=== PATIENT | female | born 1945 | race Caucasian/White ===

== ENCOUNTER 2020-01-19 08:59 | Outpatient (REF) | payer MEDICARE, SELFPAY ==
--- NOTE | 2020-01-19 09:00 | XR_ITS ---
EXAMINATION: XR KNEE STANDING, BILATERAL XR KNEE, RIGHT CLINICAL INFORMATION: Pain. COMPARISON: 01/17/2019 TECHNIQUE: Standing AP view of both knees with lateral and sunrise views of the right knee. FINDINGS: The patient is status post bilateral total knee arthroplasties with prosthetic components in place and without change from previous study. No evidence of loosening. No significant right knee effusion is appreciated. XR/XR knee standing BI IMPRESSION: Stable appearance status post bilateral total knee arthroplasty.
--- NOTE | 2020-01-19 09:00 | XR_ITS ---
EXAMINATION: XR KNEE STANDING, BILATERAL XR KNEE, RIGHT CLINICAL INFORMATION: Pain. COMPARISON: 01/17/2019 TECHNIQUE: Standing AP view of both knees with lateral and sunrise views of the right knee. FINDINGS: The patient is status post bilateral total knee arthroplasties with prosthetic components in place and without change from previous study. No evidence of loosening. No significant right knee effusion is appreciated. XR/XR knee RT 2V IMPRESSION: Stable appearance status post bilateral total knee arthroplasty.
== END 2020-01-19 09:00 | disposition home or self-care (01) ==
LOC: HO.HOSX 08:59
PROVIDERS: Visit Provider Orthopaedic Surgery
DX: M25.569 Pain in unspecified knee (principal); R20.0 Anesthesia of skin; Z96.652 Presence of left artificial knee joint; Z96.651 Presence of right artificial knee joint
CPT/HCPCS: 73560; 73565; 99212

== ENCOUNTER 2020-01-26 13:29 | Outpatient (REF) | payer MEDICARE, SELFPAY ==
--- NOTE | 2020-01-26 13:36 | XR_ITS ---
EXAMINATION: XR ANKLE, LEFT XR FOOT, LEFT CLINICAL INFORMATION: Pain after injury. COMPARISON: None TECHNIQUE: Left ankle, 2 views Left foot, 3 views FINDINGS: Left ankle: The talar dome is well-positioned within the intact ankle mortise. Ankle joint space and syndesmotic space are normal. No osteochondral injury at the talar dome. Soft tissues are swollen around the ankle, particularly anterolateral ankle. Left foot: Bones have normal alignment throughout the foot. The joint spaces are maintained in the midfoot and hindfoot. Small enthesophytes of the calcaneus. Incidentally noted is small subcortical cystlike lucency in the medial aspect of the first metatarsal head. There is joint space narrowing and osteophyte formation at several degenerated interphalangeal joints (worst at the third DIP joint). XR/XR foot LT min 3V IMPRESSION: * No acute osseous injury in the left ankle or foot. * Soft tissues are swollen around the ankle. 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
--- NOTE | 2020-01-26 13:36 | XR_ITS ---
EXAMINATION: XR ANKLE, LEFT XR FOOT, LEFT CLINICAL INFORMATION: Pain after injury. COMPARISON: None TECHNIQUE: Left ankle, 2 views Left foot, 3 views FINDINGS: Left ankle: The talar dome is well-positioned within the intact ankle mortise. Ankle joint space and syndesmotic space are normal. No osteochondral injury at the talar dome. Soft tissues are swollen around the ankle, particularly anterolateral ankle. Left foot: Bones have normal alignment throughout the foot. The joint spaces are maintained in the midfoot and hindfoot. Small enthesophytes of the calcaneus. Incidentally noted is small subcortical cystlike lucency in the medial aspect of the first metatarsal head. There is joint space narrowing and osteophyte formation at several degenerated interphalangeal joints (worst at the third DIP joint). XR/XR ankle LT min 3V IMPRESSION: * No acute osseous injury in the left ankle or foot. * Soft tissues are swollen around the ankle. 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
== END 2020-01-26 13:30 | disposition home or self-care (01) ==
LOC: HO.HMGCX 13:29
PROVIDERS: PCP Internal Medicine; Visit Provider Nurse Practitioner Family
DX: S99.919A Unspecified injury of unspecified ankle, initial encounter (principal)
CPT/HCPCS: 73610; 73630

== ENCOUNTER 2020-03-09 10:55 | Outpatient (REF) | payer MEDICARE, SELFPAY | END 2020-03-09 10:56 | disposition home or self-care (01) | LOC: HO.LAB 10:55 | PROVIDERS: Visit Provider Internal Medicine | DX: Z20.822 Contact with and (suspected) exposure to COVID-19 (principal) | CPT/HCPCS: 36415; C9803; U0003 ==

== ENCOUNTER 2020-04-17 10:12 | Outpatient (REF) | payer MEDICARE, SELFPAY ==
[2020-04-17 10:57] LABS: Alanine Aminotransferase 22 U/L (0-31); Alkaline Phosphatase 53 U/L (39-117); Aspartate Amino Transferase 28 U/L (5-31); Bilirubin Direct 0.3 mg/dL (0.0-0.5); Bilirubin Total 0.9 mg/dL (0.0-1.0); Cholesterol 157 mg/dL; HDL Cholesterol 70 mg/dL; LDL Cholesterol Calculated 71 mg/dl; Total Protein 6.9 g/dL (6.5-8.0); Triglycerides 83 mg/dL
[2020-04-17 11:11] LABS: Reflex LDLD? No
== END 2020-04-17 10:13 | disposition home or self-care (01) ==
LOC: HO.LNP 10:12
PROVIDERS: PCP Internal Medicine; Visit Provider Internal Medicine
DX: E78.00 Pure hypercholesterolemia, unspecified (principal)
CPT/HCPCS: 80061; 80076

== ENCOUNTER 2020-05-16 09:38 | Outpatient (REF) | payer MEDICARE, SELFPAY ==
--- NOTE | 2020-05-16 | EMG_ITS ---
HISTORY OF PRESENT ILLNESS: This is a 75-year-old woman with bilateral pain, numbness, and tingling in the hands for several years with the left being worse than the right. PHYSICAL EXAMINATION: On examination, she is alert and oriented with normal intellectual functions. Cranial nerves II through XII are normal. Muscle tone and strength are normal in all 4 extremities. Deep tendon reflexes symmetrical. There is mild weakness of the abductor pollicis brevis muscle bilaterally, left more than right. IMPRESSION: Carpal tunnel syndrome. Nerve conduction EMG study: [id number] carpal tunnel syndrome on the left. Mild carpal tunnel syndrome on the right. Normal EMG of the left C5-T1 innervated muscles. MD PAWEL Laureano/ASHWIN / [id number]
== END 2020-05-16 09:39 | disposition home or self-care (01) ==
LOC: HO.NEURO 09:38
PROVIDERS: PCP Internal Medicine; Visit Provider Internal Medicine
DX: G56.03 Carpal tunnel syndrome, bilateral upper limbs (principal)
CPT/HCPCS: 95885; 95913

== ENCOUNTER → 2020-05-22 12:30 | Outpatient (BNVA) | payer MEDICARE, SELFPAY | PROVIDERS: PCP Internal Medicine; Visit Provider Orthopaedic Surgery | DX: G56.02 Carpal tunnel syndrome, left upper limb (principal); G56.01 Carpal tunnel syndrome, right upper limb | CPT/HCPCS: 99202 ==

== ENCOUNTER 2020-06-28 09:57 | Day surgery (SDC) | payer MEDICARE, SELFPAY ==
[2020-06-22 20:07] VITALS: BMI 24.3
[2020-06-28 10:12] VITALS: BP 144/76; PULSE 81; RESP 16; TEMP 36.7; O2SAT 97
--- NOTE | 2020-06-28 14:20 | MHC.SHP ---
Pre-Procedural Eval Section B Chief Complaint: carpal Allergies: Allergies Allergy/AdvReac Type Severity Reaction Status Date / Time No Known Allergies Allergy Verified 06/22/20 20:07 [No Known Allergies*] Plan I have reviewed the history and physical and performed a pertinent physical examination on my patient. No changes have occurred unless specified.
--- NOTE | 2020-06-28 14:20 | W.PM.OPN ---
Operative Note Operative Note Date of Service: 06/28/20 Narrative: Preop diagnosis: 1. Left Carpal tunnel syndrome Postop diagnosis: same Procedure: 1. Left Carpal tunnel release Surgeon: Jessica Martinez MD Anesthesia: local block using 1% lidocaine with epinephrine Findings: Thickened transverse carpal ligament. EBL: Less than 5 mL Specimens: None Complications: None Disposition: Brought to recovery room in stable condition Plan: Follow-up for 7-10 days for wound check and suture removal Indications: The patient is 75 years old, with left carpal tunnel syndrome that has been unresponsive to nonoperative management. The risks and benefits of operative treatment including but not limited to risk of damage to blood vessels, nerves, tendons, infection, persistent pain, persistent symptoms, or possible need for additional surgery were discussed with the patient and the patient wishes to proceed with surgery. Procedure: Once consent was obtained a local block was performed using a combination of 1% lidocaine with epinephrine. The patient was then brought back to the operating suite and placed on the operative table in supine position. A tourniquet was applied to the proximal aspect of the left upper extremity and the limb was prepped and draped in a standard surgical fashion. Once assured that we had a good block, a 1.5 cm longitudinal incision was made centered over the carpal tunnel. The incision was made through the skin to the subcutaneous tissues using a #15 blade. Dissection was made down to the level of the transverse carpal ligament with care being taken to protect the palmar cutaneous nerve. Once the transverse carpal ligament was clearly visualized, a longitudinal incision was made in the transverse carpal ligament 1st using a #15 blade, then using tenotomy scissors under direct visualization. Care was taken to look for and protect the motor branch of the median nerve when seen in this area. Once satisfied with our carpal tunnel release the wound was copiously irrigated with normal saline and hemostasis was obtained with a brief period of local pressure. The skin edges were reapproximated with some 5.0 nylon suture material and a sterile dressing was applied. The patient appears to have tolerated the procedure well and with no complications. All digits were well vascularized at the conclusion of the case.
[2020-06-28 14:48] VITALS: BP 135/60; PULSE 75; RESP 18; TEMP 37.2; O2SAT 94
== END 2020-06-28 15:08 ==
LOC: HO.SSS 09:58
PROVIDERS: PCP Internal Medicine; Visit Provider Orthopaedic Surgery
PROC: (CPT 64721; principal; 2020-06-28 11:20)
DX: G56.02 Carpal tunnel syndrome, left upper limb (principal); I10 Essential (primary) hypertension; Z79.899 Other long term (current) drug therapy
CPT/HCPCS: 64721

== ENCOUNTER → 2020-07-09 08:18 | Outpatient (BNVA) | payer MEDICARE, SELFPAY | PROVIDERS: Visit Provider Orthopaedic Surgery | DX: G56.02 Carpal tunnel syndrome, left upper limb (principal); G56.01 Carpal tunnel syndrome, right upper limb | CPT/HCPCS: 99212 ==

== ENCOUNTER 2020-11-09 10:29 | Outpatient (REF) | payer MEDICARE, SELFPAY ==
--- NOTE | ~2020-11-09 | MM_ITS ---
EXAMINATION: MM SCREENING DIGITAL BREAST TOMOSYNTHESIS, BILATERAL CLINICAL INFORMATION: Screening. Asymptomatic. The lifetime risk of breast cancer based on the Tyrer-Cuzick Model is 3%. COMPARISON: Mammography: 11/04/2019, 10/29/2018, 10/09/2017 TECHNIQUE: Digital breast tomosynthesis is performed in both the craniocaudal and mediolateral oblique views along with computer-aided detection (CAD). Synthesized 2D images are generated from the tomosynthesis. FINDINGS: The breasts are heterogeneously dense, which may obscure small masses (ACR BI-RADS breast composition Category c). There are no significant masses, abnormal calcifications, or other abnormalities. Parenchymal pattern is similar to prior studies. Skin contours are smooth. No significant changes. MM/MM tomosynthesis screening BI IMPRESSION: No mammographic evidence of malignancy. ASSESSMENT: BI-RADS 1: Negative RECOMMENDATION: Routine annual mammography screening. This patient's information was entered into a reminder system with a target due date for their next mammogram.
== END 2020-11-09 10:30 | disposition home or self-care (01) ==
LOC: HO.MAMMO 10:29
PROVIDERS: PCP Internal Medicine; Visit Provider Internal Medicine
DX: Z12.31 Encounter for screening mammogram for malignant neoplasm of breast (principal)
CPT/HCPCS: 77063; 77067

== ENCOUNTER 2020-12-28 10:35 | Outpatient (REF) | payer MEDICARE, SELFPAY ==
[2020-12-28 10:38] LABS: MANUAL DIFF FLAG NO
[2020-12-28 10:47] LABS: Basophils Percent Auto 0.3 % (0-2); Eosinophils Absolute Auto 0.5 X10*3/uL (0.0-0.4); Eosinophils Percent Auto 7.5 % (0-4); Hematocrit 36.9 % (37.0-47.0); Hemoglobin 12.1 g/dl (12.0-16.0); Imm Gran Abs Auto 0.01 X10*3/uL (0.00-0.03); Imm Gran Pct Auto 0.2 % (0.0-0.4); Lymphocytes Percent Auto 32.6 % (20-40); Mean Corpuscular HGB Conc 32.8 g/dl (31.0-35.0); Mean Corpuscular Hemoglobin 31.3 pg (27.0-33.0); Mean Corpuscular Volume 95.3 fL (80.0-98.0); Monocytes Absolute Auto 0.7 X10*3/uL (0.1-1.2); Monocytes Percent Auto 11.7 % (2-11); Neutrophils Absolute Auto 2.9 x10*3/uL (2.0-8.3); Neutrophils Percent Auto 47.7 % (45-73); Platelet Count 332 X10*3/uL (160-400); Red Blood Count 3.87 X10*6/uL (4.20-5.50); Red Cell Distribution Width 13.9 % (11.0-16.0); White Blood Count 6.1 X10*3/uL (4.8-10.8)
[2020-12-28 11:02] LABS: Alanine Aminotransferase 26 U/L (0-31); Albumin Level 3.9 g/dL (3.5-5.0); Alkaline Phosphatase 50 U/L (39-117); Anion Gap 9 (12-20); Aspartate Amino Transferase 29 U/L (5-31); Bilirubin Total 0.3 mg/dL (0.0-1.0); Blood Urea Nitrogen 20 mg/dL (9-16); Calcium 8.7 mg/dL (8.4-10.2); Carbon Dioxide 28 mmol/L (22-29); Chloride 106 mmol/L (96-108); Cholesterol 157 mg/dL; Estimated Glomerular Filt Rate > 60; Glucose Fasting 97 mg/dL (60-99); HDL Cholesterol 64 mg/dL; LDL Cholesterol Calculated 83 mg/dl; Potassium 4.2 mmol/L (3.3-5.1); Sodium 139 mmol/L (135-145); Total Protein 6.7 g/dL (6.5-8.0); Triglycerides 51 mg/dL
[2020-12-28 12:31] LABS: Reflex LDLD? No
== END 2020-12-28 10:36 | disposition home or self-care (01) ==
LOC: HO.LNP 10:35
PROVIDERS: Visit Provider Internal Medicine
DX: Z00.00 Encounter for general adult medical examination without abnormal findings (principal); E78.00 Pure hypercholesterolemia, unspecified; I10 Essential (primary) hypertension
CPT/HCPCS: 80053; 80061; 85025

== ENCOUNTER 2021-01-04 15:09 | Outpatient (REF) | payer MEDICARE, SELFPAY ==
[2021-01-04 15:23] LABS: Appearance Urine CLEAR; Color Urine YELLOW; Glucose Urine UA NEG (NEG); Leukocyte Esterase Urine 1+ (NEG); Nitrite Urine NEG (NEG); Specific Gravity - Urine 1.025 (1.005-1.025); Urine Blood NEG (NEG); Urine Ketones NEG (NEG); Urine Protein NEG (NEG-TRACE)
[2021-01-04 15:42] LABS: RBC Urine 0-2 /HPF (0); Squamous Epithelial Cell Urine TRACE /LPF
== END 2021-01-04 15:10 | disposition home or self-care (01) ==
LOC: HO.LNP 15:09
PROVIDERS: Visit Provider Internal Medicine
DX: Z00.00 Encounter for general adult medical examination without abnormal findings (principal); E78.00 Pure hypercholesterolemia, unspecified; I10 Essential (primary) hypertension
CPT/HCPCS: 81001

== ENCOUNTER 2021-03-15 08:14 | Outpatient (REF) | payer MEDICARE, SELFPAY ==
--- NOTE | ~2021-03-15 | XR_ITS ---
EXAMINATION: XR LUMBOSACRAL SPINE CLINICAL INFORMATION: Back pain COMPARISON: None TECHNIQUE: Three views of the lumbosacral spine. FINDINGS: No fracture or dislocation is seen. There is curvature of the lower lumbar spine. There is mild 4 mm anterior subluxation of L4 with respect L5. No fracture or dislocation is seen. There is multilevel degenerative disc disease, greatest at L4-L5 and L5-S1. There is multilevel facet arthritis. There is stool throughout the colon. XR/XR lumbar spine 2-3V IMPRESSION: Scoliosis and degenerative changes.
== END 2021-03-15 08:15 | disposition home or self-care (01) ==
LOC: HO.XRAY 08:14
PROVIDERS: PCP Internal Medicine; Visit Provider Physical Medicine & Rehabilitation
DX: M54.50 Low back pain, unspecified (principal)
CPT/HCPCS: 72100

== ENCOUNTER 2021-04-29 13:00 | Outpatient (RCR) | payer MEDICARE, SELFPAY | END 2021-04-29 14:14 | disposition home or self-care (01) | LOC: HO.PTCHIC 13:00 | PROVIDERS: PCP Internal Medicine; Visit Provider Physical Medicine & Rehabilitation | DX: M54.50 Low back pain, unspecified (principal) | CPT/HCPCS: 97110; 97140; 97161 ==

== ENCOUNTER 2021-08-02 11:15 | Outpatient (REF) | payer MEDICARE, SELFPAY ==
[2021-08-02 12:03] LABS: Alanine Aminotransferase 24 U/L (0-31); Albumin Level 3.9 g/dL (3.5-5.0); Alkaline Phosphatase 53 U/L (39-117); Aspartate Amino Transferase 27 U/L (5-31); Bilirubin Direct 0.3 mg/dL (0.0-0.5); Bilirubin Total 0.6 mg/dL (0.0-1.0); Cholesterol 177 mg/dL; HDL Cholesterol 67 mg/dL; LDL Cholesterol Calculated 99 mg/dl; Total Protein 6.8 g/dL (6.5-8.0); Triglycerides 56 mg/dL
[2021-08-02 13:24] LABS: Reflex LDLD? No
== END 2021-08-02 11:16 | disposition home or self-care (01) ==
LOC: HO.LNP 11:15
PROVIDERS: PCP Internal Medicine; Visit Provider Internal Medicine
DX: E78.00 Pure hypercholesterolemia, unspecified (principal)
CPT/HCPCS: 80061; 80076

== ENCOUNTER 2021-11-18 10:18 | Outpatient (REF) | payer MEDICARE, SELFPAY ==
--- NOTE | ~2021-11-18 | MM_ITS ---
EXAMINATION: MM SCREENING DIGITAL BREAST TOMOSYNTHESIS, BILATERAL CLINICAL INFORMATION: Screening. Asymptomatic. The lifetime risk of breast cancer based on the Tyrer-Cuzick Model is 3%. COMPARISON: Mammography: 11/09/2020, 11/04/2019, 10/29/2018 TECHNIQUE: Digital breast tomosynthesis is performed in both the craniocaudal and mediolateral oblique views along with computer-aided detection (CAD). Synthesized 2D images are generated from the tomosynthesis. FINDINGS: The breasts are heterogeneously dense, which may obscure small masses (ACR BI-RADS breast composition Category c). Parenchymal pattern is similar to prior studies. No significant mass or abnormal calcifications. There is no developing density or architectural abnormality. The axilla and skin contours are unremarkable. No significant changes. MM/MM tomosynthesis screening BI IMPRESSION: No mammographic evidence of malignancy. ASSESSMENT: BI-RADS 1: Negative RECOMMENDATION: Routine annual mammography screening. This patient's information was entered into a reminder system with a target due date for their next mammogram.
== END 2021-11-18 10:19 | disposition home or self-care (01) ==
LOC: HO.MAMMO 10:18
PROVIDERS: PCP Internal Medicine; Visit Provider Internal Medicine
DX: Z12.31 Encounter for screening mammogram for malignant neoplasm of breast (principal)
CPT/HCPCS: 77063; 77067

== ENCOUNTER 2022-03-07 10:25 | Outpatient (REF) | payer MEDICARE, SELFPAY ==
[2022-03-07 10:30] LABS: MANUAL DIFF FLAG NO
[2022-03-07 10:33] LABS: Basophils Percent Auto 0.4 % (0-2); Eosinophils Absolute Auto 0.4 X10*3/uL (0.0-0.4); Eosinophils Percent Auto 6.4 % (0-4); Hematocrit 40.6 % (37.0-47.0); Hemoglobin 12.9 g/dl (12.0-16.0); Imm Gran Abs Auto 0.02 X10*3/uL (0.00-0.03); Imm Gran Pct Auto 0.3 % (0.0-0.4); Lymphocytes Absolute Auto 2.1 X10*3/uL (1.2-4.9); Lymphocytes Percent Auto 31.3 % (20-40); Mean Corpuscular HGB Conc 31.8 g/dl (31.0-35.0); Mean Corpuscular Hemoglobin 29.4 pg (27.0-33.0); Mean Corpuscular Volume 92.5 fL (80.0-98.0); Monocytes Absolute Auto 0.7 X10*3/uL (0.1-1.2); Monocytes Percent Auto 10.9 % (2-11); Neutrophils Absolute Auto 3.4 x10*3/uL (2.0-8.3); Neutrophils Percent Auto 50.7 % (45-73); Platelet Count 360 X10*3/uL (160-400); Red Blood Count 4.39 X10*6/uL (4.20-5.50); Red Cell Distribution Width 13.5 % (11.0-16.0); White Blood Count 6.7 X10*3/uL (4.8-10.8)
[2022-03-07 11:26] LABS: Alanine Aminotransferase 23 U/L (0-31); Alkaline Phosphatase 57 U/L (39-117); Anion Gap 11 (12-20); Aspartate Amino Transferase 29 U/L (5-31); Bilirubin Total 0.6 mg/dL (0.0-1.0); Blood Urea Nitrogen 18 mg/dL (9-16); Calcium 9.2 mg/dL (8.4-10.2); Carbon Dioxide 28 mmol/L (22-29); Chloride 105 mmol/L (96-108); Cholesterol 171 mg/dL; Estimated Glomerular Filt Rate > 60; Glucose Fasting 97 mg/dL (60-99); HDL Cholesterol 67 mg/dL; LDL Cholesterol Calculated 91 mg/dl; Potassium 4.4 mmol/L (3.3-5.1); Sodium 140 mmol/L (135-145); Triglycerides 65 mg/dL
== END 2022-03-07 10:26 | disposition home or self-care (01) ==
LOC: HO.LNP 10:25
PROVIDERS: Visit Provider Internal Medicine
DX: Z00.00 Encounter for general adult medical examination without abnormal findings (principal); E78.00 Pure hypercholesterolemia, unspecified; I10 Essential (primary) hypertension
CPT/HCPCS: 80053; 80061; 85025

== ENCOUNTER 2022-09-04 11:18 | Outpatient (REF) | payer MEDICARE, SELFPAY ==
[2022-09-04 14:09] LABS: Alanine Aminotransferase 20 U/L (0-31); Alkaline Phosphatase 53 U/L (39-117); Aspartate Amino Transferase 26 U/L (5-31); Bilirubin Direct 0.3 mg/dL (0.0-0.5); Bilirubin Total 0.7 mg/dL (0.0-1.0); Total Protein 7.1 g/dL (6.5-8.0)
[2022-09-04 14:10] LABS: Cholesterol 178 mg/dL; HDL Cholesterol 64 mg/dL; LDL Cholesterol Calculated 101 mg/dl; Triglycerides 65 mg/dL
[2022-09-04 15:16] LABS: Reflex LDLD? No
== END 2022-09-04 11:19 | disposition home or self-care (01) ==
LOC: HO.LNP 11:18
PROVIDERS: Visit Provider Internal Medicine
DX: E78.00 Pure hypercholesterolemia, unspecified (principal)
CPT/HCPCS: 80061; 80076

== ENCOUNTER 2022-12-12 07:51 | Outpatient (REF) | payer MEDICARE, SELFPAY | END 2022-12-12 07:52 | disposition home or self-care (01) | LOC: HO.MAMMO 07:51 | PROVIDERS: PCP Internal Medicine; Visit Provider Internal Medicine | DX: Z12.31 Encounter for screening mammogram for malignant neoplasm of breast (principal) | CPT/HCPCS: 77063; 77067 ==

== ENCOUNTER → 2022-12-12 08:00 | Outpatient (BNV) | payer MEDICARE, SELFPAY | PROVIDERS: PCP Internal Medicine; Visit Provider Radiology Diagnostic Radiology | DX: Z12.31 Encounter for screening mammogram for malignant neoplasm of breast (principal) | CPT/HCPCS: 77063; 77067 ==

== ENCOUNTER 2023-03-20 11:02 | Outpatient (REF) | payer MEDICARE, SELFPAY ==
[2023-03-20 11:04] LABS: MANUAL DIFF FLAG NO
[2023-03-20 11:14] LABS: Basophils Percent Auto 0.5 % (0-2); Eosinophils Absolute Auto 0.4 X10*3/uL (0.0-0.4); Eosinophils Percent Auto 6.6 % (0-4); Hematocrit 38.5 % (37.0-47.0); Hemoglobin 12.4 g/dl (12.0-16.0); Imm Gran Abs Auto 0.01 X10*3/uL (0.00-0.03); Imm Gran Pct Auto 0.2 % (0.0-0.4); Lymphocytes Percent Auto 32.5 % (20-40); Mean Corpuscular HGB Conc 32.2 g/dl (31.0-35.0); Mean Corpuscular Hemoglobin 29.4 pg (27.0-33.0); Mean Corpuscular Volume 91.2 fL (80.0-98.0); Mean Platelet Volume 10.8 fL (9.4-12.3); Monocytes Absolute Auto 0.8 X10*3/uL (0.1-1.2); Monocytes Percent Auto 12.8 % (2-11); Neutrophils Percent Auto 47.4 % (45-73); Platelet Count 378 X10*3/uL (160-400); Red Blood Count 4.22 X10*6/uL (4.20-5.50); Red Cell Distribution Width 13.4 % (11.0-16.0); White Blood Count 6.3 X10*3/uL (4.8-10.8)
[2023-03-20 11:27] LABS: Alanine Aminotransferase 19 U/L (0-31); Albumin Level 3.7 g/dL (3.5-5.0); Alkaline Phosphatase 54 U/L (39-117); Anion Gap 10 (12-20); Aspartate Amino Transferase 26 U/L (5-31); Bilirubin Total 0.4 mg/dL (0.0-1.0); Blood Urea Nitrogen 15 mg/dL (9-16); Calcium 8.9 mg/dL (8.4-10.2); Carbon Dioxide 27 mmol/L (22-29); Chloride 106 mmol/L (96-108); Cholesterol 149 mg/dL (<200); Estimated Glomerular Filt Rate > 60; Glucose Fasting 89 mg/dL (60-99); HDL Cholesterol 64 mg/dL (>40); LDL Cholesterol Calculated 73 mg/dL (<100); Potassium 3.8 mmol/L (3.3-5.1); Sodium 139 mmol/L (135-145); Total Protein 6.8 g/dL (6.5-8.0); Triglycerides 61 mg/dL (<150)
== END 2023-03-20 11:03 | disposition home or self-care (01) ==
LOC: HO.LNP 11:02
PROVIDERS: Visit Provider Internal Medicine
DX: Z00.00 Encounter for general adult medical examination without abnormal findings (principal); E78.00 Pure hypercholesterolemia, unspecified
CPT/HCPCS: 80053; 80061; 85025

== ENCOUNTER 2023-03-27 11:11 | Outpatient (REF) | payer MEDICARE, SELFPAY ==
[2023-03-27 11:38] LABS: Appearance Urine Clear; Color Urine Yellow; Glucose Urine UA Negative (Negative); Leukocyte Esterase Urine Small (1+) (Negative); Nitrite Urine Negative (Negative); PH 5.5 (5.0-9.0); UMIC TRIGGER UACC YES; Urine Blood Negative (Negative); Urine Ketones Negative (Negative); Urine Protein Negative (Neg-Trace)
[2023-03-27 11:57] LABS: Bacteria Urine None Seen (None Seen); Calcium Oxalate Crystals Urine Present; Hyaline Casts Urine 0-2 /LPF (0-2); RBC Urine 0-2 /HPF (0-2); Squamous Epithelial Cell Urine 0-2 /HPF (0-2); UACC Culture Trigger YES
== END 2023-03-27 11:12 | disposition home or self-care (01) ==
LOC: HO.LNP 11:11
PROVIDERS: Visit Provider Internal Medicine
DX: I10 Essential (primary) hypertension (principal); E78.00 Pure hypercholesterolemia, unspecified; R82.90 Unspecified abnormal findings in urine
CPT/HCPCS: 81001; 87086

== ENCOUNTER 2023-04-02 08:19 | Outpatient (AMB) | payer MEDICARE, SELFPAY ==
--- NOTE | 2023-04-02 08:23 | MHC.OFFVIS ---
Intake Vital Signs 04/02/23 08:29 Weight 141 lb Intake Visit Reasons: Rectal prolapse Intake Note: This patient presents for an assessment for rectal prolapse. Pt c/o; reports mucus discharge with blood. 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 Accompanied by: Self / Same As Patient Allergies No Known Allergies [No Known Allergies*] Allergy (Verified 04/02/23 08:30) Medication List - Last Reconciled 04/02/23 by Arden Van MD atorvastatin 10 mg PO BEDTIME calcium carbonate-vitamin D3 1,000 mg-20 mcg (800 unit) 1 tab PO DAILY cephalexin 500 mg PO TID hydrocodone-acetaminophen 5-325 mg 1 tab PO Q4-6H PRN multivitamin (Daily Multi-Vitamin tablet) 1 tab PO DAILY naproxen 500 mg PO BID PRN omeprazole 40 mg PO DAILY pramipexole 0.5 mg PO BEDTIME venlafaxine ER (Effexor XR) 225 mg PO DAILY HPI Rectal prolapse HPI Details 77 year old female referred for rectal prolapse. She describes having lower abdominal/pelvic discomfort periodically. She states that this is usually when she would notice ?tissue? coming out of her anus. She says she pushes back to reduce this. This happens whenever she has been standing for prolonged periods of time. She describes associated with see discharge with some tinge of blood once in a while. She says that because of this discharge, she often times wears pads. She had a colonoscopy in 2019. She had diverticulosis and hemorrhoids at that time. She says he has occasional constipation. 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 Review of Systems Const Denies chills and Denies fever(s) Card Denies chest pain, Denies dyspnea and Denies dyspnea on exertion Resp Denies cough, Denies dyspnea and Denies dyspnea on exertion GI Reports hematochezia and Denies change in bowel habits Denies hematuria Musc Denies back pain and Denies limited range of motion Neuro Denies focal weakness and Denies convulsions Psych Denies depression and Denies mood swings Physical Exam Const General: comfortable and no acute distress Orientation/consciousness: patient oriented x3 Neck Neck: Yes no lymphadenopathy Resp Auscultation: clear to auscultation bilaterally Cardio Rhythm: regular rhythm GI Other: Rectal exam - no perianal lesions, has small external hemorrhoids Palpation (GI): Soft to palpation, nontender and no guarding Neuro General: patient oriented x3 Office Procedures Anoscopy She was in lucian-knife position. The anoscope was gently inserted. A full examination of the anal canal was done. There were no mucosal abnormalities seen. There was no fissure, ulceration or any lesion. There was no blood seen Digital exam does not reveal any induration. She has relatively lax sphincter tone on both squeeze and resting. The prolapse was not reproducible when she was asked to bear down [id number] Assessment & Plan Assessment & Plan (1) Rectal prolapse: Code(s): K62.3 - Rectal prolapse Plan: She describes rectal prolapse, about 3 cm. She says that this happens periodically whenever she has been standing for long periods of time. She admits to constipation as well I had a long discussion with her about treatment. I told her that for significant full-thickness prolapse, rectopexy plus minus resection would be of benefit. Her prolapse is not reproducible at this time. I will start her on some nonsurgical treatment with fiber supplementation. I instructed her to take this consistently. I will see her again in the office in about 6 weeks to see how she responds to this She says she is comfortable with this plan. Coding Level of Care Code New Pt Level 3 (04284) Diagnoses Rectal prolapse K62.3 CPT Codes Details - CPT: 02671-[id number] ([id number])
== END 2023-04-02 08:59 | disposition home or self-care (01) ==
PROVIDERS: PCP Internal Medicine; Referring Provider Internal Medicine; Visit Provider Surgery
DX: K62.3 Rectal prolapse (principal)
CPT/HCPCS: 46600; 99203

== ENCOUNTER → 2023-04-02 08:19 | Outpatient (BNVA) | payer MEDICARE, SELFPAY | PROVIDERS: PCP Internal Medicine; Referring Provider Internal Medicine; Visit Provider Surgery | DX: K62.3 Rectal prolapse (principal) | CPT/HCPCS: 46600; 99202 ==

== ENCOUNTER 2023-05-14 09:37 | Outpatient (AMB) | payer MEDICARE, SELFPAY ==
--- NOTE | 2023-05-14 09:40 | MHC.OFFVIS ---
Intake Visit Reasons: 6 wk follow up Rectal prolapse Intake Note: This patient presents for a six week follow up Rectal prolapse. Pt c/o; reports no changes. 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 Accompanied by: Self / Same As Patient Allergies No Known Allergies [No Known Allergies*] Allergy (Verified 07/27/23 10:09) Medication List - Last Reconciled 05/14/23 by Arden Van MD atorvastatin 10 mg PO BEDTIME calcium carbonate-vitamin D3 1,000 mg-20 mcg (800 unit) 1 tab PO DAILY cephalexin 500 mg PO TID hydrocodone-acetaminophen 5-325 mg 1 tab PO Q4-6H PRN multivitamin (Daily Multi-Vitamin tablet) 1 tab PO DAILY naproxen 500 mg PO BID PRN omeprazole 40 mg PO DAILY pramipexole 0.5 mg PO BEDTIME venlafaxine ER (Effexor XR) 225 mg PO DAILY HPI HPI 6 wk follow up Rectal prolapse: Details: She continues to describe rectal prolapse. She says that the rectum seems to fall down outside her anus frequently and almost constantly. She also seems to have had significant incontinence now and stool seems to come out frequently about her knowing it She denies any abdominal pain. She denies any bleeding. 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 Review of Systems Const Denies chills and Denies fever(s) Card Denies chest pain, Denies dyspnea and Denies dyspnea on exertion Resp Denies cough, Denies dyspnea and Denies dyspnea on exertion GI Details: Incontinence Denies hematochezia and Denies change in bowel habits Denies hematuria Musc Denies back pain and Denies limited range of motion Neuro Denies focal weakness and Denies convulsions Psych Denies depression and Denies mood swings Physical Exam Const General: comfortable and no acute distress Orientation/consciousness: patient oriented x3 Neck Neck: Yes no lymphadenopathy Resp Auscultation: clear to auscultation bilaterally Cardio Rhythm: regular rhythm GI Other: Rectal exam shows large amount of stools outside her anus Again, she noted to have very lax sphincter tone to both squeeze and resting pressures Palpation (GI): Soft to palpation, nontender and no guarding Neuro General: patient oriented x3 Assessment & Plan Assessment & Plan (1) Rectal prolapse: Code(s): K62.3 - Rectal prolapse Category: Medical Plan: She describes continuing to have rectal prolapse despite being on Metamucil. She has a large amount of her ?rectum? falls down. This is not reproducible on examination. She also has significant incontinence I am going to order for a CAT scan of the abdomen and pelvis with oral contrast to define her anatomy in the pelvis. I did explain to her the option of surgery. She seems to be willing to go for this in view of the extent of her prolapse. She states that she seems to getting the way of her life style now. I will talk to her after review her CT scan and the rest of her records including her colonoscopy. Orders: Orders CT abdomen pelvis wo IV con 05/14/23 K62.3 - Rectal prolapse Coding Level of Care Code Est Pt Level 3 (59033) Diagnoses Rectal prolapse K62.3
== END 2023-05-14 10:01 | disposition home or self-care (01) ==
PROVIDERS: PCP Internal Medicine; Visit Provider Surgery
DX: K62.3 Rectal prolapse (principal)
CPT/HCPCS: 99213

== ENCOUNTER → 2023-05-14 09:37 | Outpatient (BNVA) | payer MEDICARE, SELFPAY | PROVIDERS: PCP Internal Medicine; Visit Provider Surgery | DX: K62.3 Rectal prolapse (principal); R15.9 Full incontinence of feces | CPT/HCPCS: 99212 ==

== ENCOUNTER 2023-07-16 14:27 | Outpatient (REF) | payer MEDICARE, SELFPAY ==
--- NOTE | ~2023-07-16 | CT_ITS ---
EXAMINATION: CT ABDOMEN AND PELVIS WITHOUT CONTRAST CLINICAL INFORMATION: Rectal prolapse COMPARISON: None available. TECHNIQUE: Multidetector volumetric imaging was performed from the superior aspect of the liver through the pubic symphysis without IV contrast. Oral contrast was administered. Sagittal and coronal reformatted images were obtained on the technologist's workstation. This CT examination was performed using dose optimization techniques as appropriate, variously including the following: *Automated exposure control *Adjustment of mA and/or kV according to patient size (this includes techniques or standardized protocols for targeted exams where dose is matched to indication/reason for exam; i.e. extremities or head) *Use of iterative reconstruction technique DLP: 375 mGy-cm FINDINGS: BOBCAT OPERATOR: Fecal retention. Nonobstructive bowel pattern. LUNG BASES: Right lower lobe compressive atelectasis. Nonenlarged heart. No pericardial effusion. HEPATOBILIARY: Noncontrast enhanced liver without focal lesion. No intra or extrahepatic biliary ductal dilatation. Unremarkable gallbladder. SPLEEN: Unremarkable. ADRENAL GLANDS: Unremarkable. KIDNEYS AND URETERS: The kidneys are normal in size, shape, and attenuation. Mild right intrarenal collecting system fullness. Small right extrarenal pelvis. No hydroureteronephrosis or calculi seen. No perinephric stranding. BLADDER: Distended and unremarkable. GASTROINTESTINAL TRACT: Contrast in distal esophagus. Contrast and debris filled distended stomach. Nonobstructive bowel pattern. Unremarkable appendix. Moderately severe fecal retention. Mid and distal descending colon are decompressed. Contrast does not reach the colon limiting evaluation. No definite CT findings to confirm clinically suspected rectal prolapse. ABDOMINAL WALL: No significant hernia is appreciated. LYMPH NODES: No pathologic lymphadenopathy. VASCULAR: Atherosclerotic calcifications nonaneurysmal aorta and iliac arteries. Normal caliber inferior vena cava. PELVIC VISCERA: 1.9 cm rounded lesion is identified within the uterus, unclear if within the endometrial cavity or submucosal. OSSEOUS STRUCTURES: Degenerative changes. Levoscoliosis. No suspicious osseous lesions. CT/CT abdomen pelvis wo IV con IMPRESSION: Contrast distal esophagus, question reflux disease. Moderately severe fecal retention. Evaluation limited by lack of oral contrast transit into the colon, especially with respect to clinically suspected rectal prolapse. Mild left intrarenal collecting system prominence. No renal, ureteral or bladder calculi. Uterine lesion with calcification, question submucosal fibroid versus endometrial lesion. Pelvic ultrasound recommended. Fleischner guidelines were followed.
[2023-07-16] MEDS: Barium Sulfate Oral (Berry) 450 ML ORAL.SUSP 900 ML PO (16:15)
== END 2023-07-16 14:28 | disposition home or self-care (01) ==
LOC: HO.CT 14:27
PROVIDERS: PCP Internal Medicine; Visit Provider Surgery
DX: K62.3 Rectal prolapse (principal)
CPT/HCPCS: 74176

== ENCOUNTER 2023-07-27 09:57 | Outpatient (AMB) | payer MEDICARE, SELFPAY ==
--- NOTE | 2023-07-27 10:07 | A.OFFVIS_ITS ---
Intake Visit Reasons: Ct-Scan follow-up, rectal prolapse Intake Note: Ct-Scan follow-up, rectal prolapse. Pt c/o; reports no complaints. 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 Accompanied by: Self / Same As Patient Allergies No Known Allergies [No Known Allergies*] Allergy (Verified 07/27/23 10:09) Medication List - Last Reconciled 07/27/23 by Arden Van MD atorvastatin 10 mg PO BEDTIME calcium carbonate-vitamin D3 1,000 mg-20 mcg (800 unit) 1 tab PO DAILY cephalexin 500 mg PO TID hydrocodone-acetaminophen 5-325 mg 1 tab PO Q4-6H PRN multivitamin (Daily Multi-Vitamin tablet) 1 tab PO DAILY naproxen 500 mg PO BID PRN omeprazole 40 mg PO DAILY pramipexole 0.5 mg PO BEDTIME venlafaxine ER (Effexor XR) 225 mg PO DAILY HPI HPI Ct-Scan follow-up, rectal prolapse: Details: 78-year-old female here for follow-up for rectal prolapse. I had sent for a CT scan to rule out an intra-abdominal pathology. She continues to the prolapse and says that this bothers her with discomfort whenever this is out. She says that this still happens almost every day. She denies any abdominal pain. She otherwise has good bowel movements. She says she feels well overall and states that she seems to be in good health. 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 Review of Systems Const Denies chills and Denies fever(s) Card Denies chest pain, Denies dyspnea and Denies dyspnea on exertion Resp Denies cough, Denies dyspnea and Denies dyspnea on exertion GI Denies hematochezia and Denies change in bowel habits Denies hematuria Musc Denies back pain and Denies limited range of motion Neuro Denies focal weakness and Denies convulsions Psych Denies depression and Denies mood swings Physical Exam Const General: comfortable and no acute distress Orientation/consciousness: patient oriented x3 Neck Neck: Yes no lymphadenopathy Resp Auscultation: clear to auscultation bilaterally Cardio Rhythm: regular rhythm GI Other: Poor sphincter tone on digital exam, prolapse noted, easily reduced Palpation (GI): Soft to palpation, nontender and no guarding Neuro General: patient oriented x3 Assessment & Plan Assessment & Plan (1) Rectal prolapse: Code(s): K62.3 - Rectal prolapse Category: Medical Plan: Her CT scan does not reveal any significant intra-abdominal pathology. I explained to her that prior to any surgical intervention, I would recommend doing a full colonoscopy to rule out any other colonic process just engaged. Her last colonoscopy on record was last 2018. I explained the technique of colonoscopy with her. I reviewed the risks, including but not limited to bleeding and perforation, as well as the benefits and alternatives. She says she understands and wants to proceed. She says she wants me to do the colonoscopy. Coding Level of Care Code Est Pt Level 3 (94979) Diagnoses Rectal prolapse K62.3
== END 2023-07-27 10:28 | disposition home or self-care (01) ==
PROVIDERS: PCP Internal Medicine; Visit Provider Surgery
DX: K62.3 Rectal prolapse (principal)
CPT/HCPCS: 99213

== ENCOUNTER → 2023-07-27 09:57 | Outpatient (BNVA) | payer MEDICARE, SELFPAY | PROVIDERS: PCP Internal Medicine; Visit Provider Surgery | DX: K62.3 Rectal prolapse (principal) | CPT/HCPCS: 99212 ==

== ENCOUNTER 2023-08-18 16:00 | Outpatient (REF) | payer MEDICARE, SELFPAY ==
--- NOTE | ~2023-08-18 | US_ITS ---
EXAMINATION: US PELVIS CLINICAL INFORMATION: Fibroids, postmenopausal, denies pain COMPARISON: None available. TECHNIQUE: Ultrasound of the pelvis is performed using both transabdominal and transvaginal transducers along with Doppler. Transvaginal imaging is performed due to inadequate visualization transabdominally. FINDINGS: The uterus is anteverted and measures 6.5 x 3.2 x 4.0 cm. 2.0 x 1.5 x 2.5 cm and 0.7 x 0.4 x 0.8 cm hypoechoic uterine masses are characteristic of fibroids. Endometrium difficult to image due to fibroids. Possible imaged segment of endometrium with thickness of 3 mm, although these measurements are unreliable. Right ovary measures 1.2 x 0.7 x 0.7 cm, volume 0.3 mL and is unremarkable. Left ovary was seen only on limited transabdominal ultrasound images and measures 1.5 x 0.8 x 0.9 cm, volume 0.6 mL. No significant free fluid. Nabothian cysts in the cervix. US/US pelvic and transvaginal IMPRESSION: 1. Uterine fibroids. 2. Endometrium difficult to image due to fibroids. Possible imaged segment of endometrium with thickness of 3 mm, although these measurements are unreliable. 3. Unremarkable bilateral ovaries. 4. Nabothian cysts in the cervix.
== END 2023-08-18 16:01 | disposition home or self-care (01) ==
LOC: HO.US 16:00
PROVIDERS: PCP Internal Medicine; Visit Provider Internal Medicine
DX: D21.9 Benign neoplasm of connective and other soft tissue, unspecified (principal)
CPT/HCPCS: 76830; 76856

== ENCOUNTER 2023-08-21 06:34 | Day surgery (SDC) | payer MEDICARE, SELFPAY ==
[2023-08-17 09:57] VITALS: BMI 25.0
[2023-08-21 06:36] VITALS: BMI 23.7
[2023-08-21 06:57] VITALS: BP 146/80; PULSE 80; RESP 16; TEMP 36.4; O2SAT 95
--- NOTE | 2023-08-21 07:05 | P.CONAN_ITS ---
HPI - Anesthesia Eval Consult details Narrative: 78 yo female patient for Colonoscopy [facility] Active Problems Active Problems: All Active Problems Carpal tunnel syndrome of right wrist (Acute) Carpal tunnel syndrome of left wrist (Acute) Ankle injury (Acute) Anemia (Acute) Sleep disorder, unspecified (Acute) Restless leg syndrome (Acute) Hypersomnia (Acute) Dysthymia (Acute) Age-related osteoporosis without current pathological fracture (Acute) Hypercholesteremia (Acute) Elevated BUN (Acute) Rectal prolapse (Acute) Bilateral hand numbness (Acute) History of left knee replacement (Acute) Advanced age GERD- bad but somewhat controlled with meds. Took omeprazole this morning. Asymptomatic this morning Past Medical History Medical History Rectal prolapse Hiatal hernia GERD (gastroesophageal reflux disease) Ankle fracture Bilateral hand numbness RLS (restless legs syndrome) High cholesterol Depression Hypertension Family History Family History Brother Melanoma of face Father Colon cancer Family history of problems with anesthesia: No Surgical History Surgical History History of esophagogastroduodenoscopy (EGD) History of surgery on lower extremity H/O colonoscopy History of carpal tunnel surgery of left wrist History of left knee replacement History of total right knee replacement (~11/2018) History of Problems with Anesthesia: No Social History Social History Household Members Other:: son Do you presently have visiting nurse or other home services: No Alcohol intake: current Alcohol intake frequency: holidays/special occasions only Patient Tobacco Use Status: Never used Tobacco Use of substances other than those prescribed or required for medical reasons: No Have you been hit, kicked, punched, or otherwise hurt by someone within the past year? 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 Meds Allergies Allergy/AdvReac Type Severity Reaction Status Date / Time No Known Allergies Allergy Verified 08/21/23 06:59 [No Known Allergies*] Home Medications ?Medication ?Instructions ?Recorded ?Confirmed ?Last Taken ?Type atorvastatin 10 mg tablet 10 mg PO BEDTIME 01/03/20 08/21/23 08/20/23 History calcium carbonate 1,000 mg-vitamin 1 tab PO DAILY 01/03/20 08/17/23 06/28/20 History D3 20 mcg (800 unit) tablet naproxen 500 mg tablet 500 mg PO BID PRN Pain 01/03/20 08/17/23 08/19/23 History omeprazole 40 mg capsule,delayed 40 mg PO DAILY 01/03/20 08/21/23 08/21/23 History release pramipexole 0.25 mg tablet 0.5 mg PO BEDTIME 01/03/20 08/21/23 08/20/23 History venlafaxine 75 mg capsule,extended 225 mg PO DAILY 01/03/20 08/21/23 08/20/23 History release 24 hr (Effexor XR) multivitamin (Daily Multi-Vitamin 1 tab PO DAILY 01/26/20 08/17/23 06/28/20 History tablet) Exam Height,Weight and Vital Signs: Height 5 ft 3 in Weight 60.781 kg Last Vital Signs Temp 97.5 F 08/21/23 06:57 Pulse 80 08/21/23 06:57 Resp 16 08/21/23 06:57 BP 146/80 H 08/21/23 06:57 Pulse Ox 95 08/21/23 06:57 O2 Del Method Room Air 08/21/23 06:57 Airway Mallampati Class: III TM Dist: >3cm Neck ROM: Full Denture: Upper Loose/Missing/Broken Teeth: Yes (Only few teeth bottom. 1 broken. Denies loose teeth) Heart: RRR Lungs: CTAB Assessment and Plan Assessment Anesthesia Assessment: Anesthesia Plan Discussed and Chart Reviewed Final Anesthetic Review Family History of Problems with Anesthesia: No History of Problems with Anesthesia: No NPO: Yes ASA Class: III Final Preanesthetic Review: No Changes in Pt Med Stat, Meds/Allgs Chart Reviewed, Consent Obtained/Reviewed and Anes Risks/Benef Reviewed Patient Risk: Intermediate Procedure Risk: Low Assessment/Block/Sedation in SS: Assess/Block/Sedation-SS Anesthetic Plan Anesthetic Plan: GA, MAC: and TIVA Disposition: Standard PACU
--- NOTE | 2023-08-21 07:19 | MHC.SHP ---
Pre-Procedural Eval Section A - 24 Hr Update-Section A only Date of Service: 08/21/23 The patient is an INPATIENT: No The patient has been examined within 24 hours of the surgical procedure. The History & Physical has been completed within 30 days and I have reviewed it.: Yes Section B - Complete if H&P > 30 days Chief Complaint: Rectal prolapse Allergies: Allergies Allergy/AdvReac Type Severity Reaction Status Date / Time No Known Allergies Allergy Verified 08/21/23 06:59 [No Known Allergies*] Plan I have reviewed the history and physical and performed a pertinent physical examination on my patient. No changes have occurred unless specified. Time Spent With Patient Time: Total time managing care of this patient today ____ minutes.
--- NOTE | 2023-08-21 08:06 | W.PM.OPN ---
Operative Note Operative Note Date of Service: 08/21/23 Narrative: Preop diagnosis: Rectal prolapse Postop diagnosis: Rectal prolapse otherwise normal colonoscopy findings Procedure: Colonoscopy Surgeon: Arden Van MD The patient is 78 year old female not a full-thickness rectal prolapse. She is planning to have repair of this prolapse and I would recommended proceeding colonoscopy to rule out any other colonic pathology. She understands the technique of the planned procedure as well as the risks, benefits, and alternatives. She was brought to the operating room. She was placed in left lateral decubitus position under monitored anesthesia care. Avoid digital rectal exam was done. She did have some prolapse with edema of the mucosa which I was able to easily reduced. I inserted the colonoscope gently through the anal orifice and this was advanced with insufflation of the cecum. The cecum was identified by visualization of the ileocecal valve as well as appendiceal orifice. The cecal mucosa is unremarkable. The cecum was gradually withdrawn with careful examination of the entire colonic mucosa being done with scope withdrawal. The patient had adequate bowel prep so it was unlikely that any lesion may have been missed. We did have to do irrigation and suctioning of some in liquid stools through some segments. The rectum was reached. There was note of some edema of the rectal mucosa from the prolapse. Other than that there were no lesions seen. The anal mucosa was unremarkable. The patient had a very lax sphincter tone. The scope was withdrawn completely with desufflation. The patient tolerated procedure well. There were immediate complications. The patient was transferred to the recovery room with stable vital signs.
[2023-08-21 08:10] VITALS: BP 101/58; PULSE 75; RESP 18; TEMP 36.9; O2SAT 98
[2023-08-21 08:25] VITALS: BP 138/73; PULSE 71; RESP 20; TEMP 36.6; O2SAT 97
== END 2023-08-21 08:45 | disposition home or self-care (01) ==
PROVIDERS: PCP Internal Medicine; Visit Provider Surgery
PROC: 0DBE8ZZ Excision of Large Intestine, Via Natural or Artificial Opening Endoscopic (ICD-10-PCS; CPT 45378; principal; 2023-08-21 07:30)
DX: K62.3 Rectal prolapse (principal); K62.9 Disease of anus and rectum, unspecified; K44.9 Diaphragmatic hernia without obstruction or gangrene; K21.9 Gastro-esophageal reflux disease without esophagitis; E78.00 Pure hypercholesterolemia, unspecified; I10 Essential (primary) hypertension; F32.A Depression, unspecified; Z79.1 Long term (current) use of non-steroidal anti-inflammatories (NSAID); Z79.899 Other long term (current) drug therapy
CPT/HCPCS: 45378; J2704

== ENCOUNTER → 2023-08-21 06:34 | Outpatient (BNV) | payer MEDICARE, SELFPAY | PROVIDERS: PCP Internal Medicine; Visit Provider Surgery | DX: K62.3 Rectal prolapse (principal) | CPT/HCPCS: 45378 ==

== ENCOUNTER 2023-08-31 11:37 | Outpatient (AMB) | payer MEDICARE, SELFPAY ==
--- NOTE | 2023-08-31 11:38 | A.OFFVIS_ITS ---
Intake Visit Reasons: S/P colonoscopy Intake Note: This patient presents for a follow-up assessment status post colonoscopy. Patient c/o; reports no complaints. Water And Fire Technician Required: No Accompanied by: Self / Same As Patient Allergies No Known Allergies [No Known Allergies*] Allergy (Verified 08/31/23 11:42) HPI HPI S/P colonoscopy: Details: 77 year old here for a ffup for rectal prolapse. She describes having lower abdominal/pelvic discomfort periodically. She states that this is usually when she would notice ?tissue? coming out of her anus. She says she pushes back to reduce this. This happens whenever she has been standing for prolonged periods of time. She describes this to be associated with discharge with some tinge of blood once in a while. She says that because of this discharge, she often times wears pads. She had a colonoscopy in 2018. She had diverticulosis and hemorrhoids at that time. She says he has occasional constipation. I had repeated her colonoscopy last August 21, 2023 and this did not reveal any other pathology. Her CT scan does not show any other intraabdominal pathology. She says that the prolapse has been bothering her more and she feels that she is sitting on and egg all the time. She admits to baseline leakage of stool periodically. [facility] Medical History Rectal prolapse Hiatal hernia GERD (gastroesophageal reflux disease) Ankle fracture Bilateral hand numbness RLS (restless legs syndrome) High cholesterol Depression Hypertension Surgical History H/O colonoscopy (~08/21/23) History of esophagogastroduodenoscopy (EGD) History of surgery on lower extremity H/O colonoscopy History of carpal tunnel surgery of left wrist History of left knee replacement History of total right knee replacement (~11/2018) Family History Brother Melanoma of face Father Colon cancer Social History Household Members Other:: son Do you presently have visiting nurse or other home services: No Alcohol intake: current Alcohol intake frequency: holidays/special occasions only Patient Tobacco Use Status: Never used Tobacco Current occupational status: employed 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 Review of Systems Const Denies chills and Denies fever(s) Card Denies chest pain, Denies dyspnea and Denies dyspnea on exertion Resp Denies cough, Denies dyspnea and Denies dyspnea on exertion GI Details: incontinence Reports hematochezia, Denies change in bowel habits and Reports fecal incontinence Denies hematuria Musc Denies back pain and Denies limited range of motion Neuro Denies focal weakness and Denies convulsions Psych Denies depression and Denies mood swings Physical Exam Const General: comfortable and no acute distress Orientation/consciousness: patient oriented x3 Neck Neck: Yes no lymphadenopathy Resp Auscultation: clear to auscultation bilaterally Cardio Rhythm: regular rhythm GI Other: reducible rectal prolapse, full thickness, about 5 cm, lax sphincter tone Palpation (GI): Soft to palpation, nontender and no guarding Neuro General: patient oriented x3 Assessment & Plan Assessment & Plan (1) Rectal prolapse: Code(s): K62.3 - Rectal prolapse Category: Medical Plan: She has had this significant rectal prolapse with signficant discomfort. Colonoscopy and CT scan do not suggest any other pathology. I had a long discussion with her about the technique of hand-assisted laparoscopic suture rectopexy with possible sigmoid resection. I reviewed with her the risks including but not limited to bleeding, infections, bowel injury, injury to the urinary tract, recurrence, staple line leak, as well as the benefits and alternatives. She wants to proceed. She alos stated that if possible, she would like to avoid resection. She understands that her fecal incontinence may not improve with the procedure. Coding Level of Care Code Est Pt Level 4 (97373) Diagnoses Rectal prolapse K62.3
== END 2023-08-31 11:54 | disposition home or self-care (01) ==
PROVIDERS: PCP Internal Medicine; Visit Provider Surgery
DX: K62.3 Rectal prolapse (principal)
CPT/HCPCS: 99214

== ENCOUNTER → 2023-08-31 11:37 | Outpatient (BNVA) | payer MEDICARE, SELFPAY | PROVIDERS: PCP Internal Medicine; Visit Provider Surgery | DX: K62.3 Rectal prolapse (principal) | CPT/HCPCS: 99212 ==

== ENCOUNTER → 2023-09-22 13:07 | Outpatient (BNV) | payer MEDICARE, SELFPAY | PROVIDERS: Admitting Provider Surgery; PCP Nurse Practitioner Family; Visit Provider Internal Medicine Cardiovascular Disease | DX: I49.1 Atrial premature depolarization (principal) | CPT/HCPCS: 93010 ==

== ENCOUNTER 2023-09-29 07:20 | Inpatient (IN) | payer MEDICARE, SELFPAY ==
--- NOTE | 2023-09-22 | ECG_ITS ---
Test Reason : preop Blood Pressure : / mmHG Vent. Rate : 074 BPM Atrial Rate : 074 BPM P-R Int : 176 ms QRS Dur : 080 ms QT Int : 386 ms P-R-T Axes : 078 018 051 degrees QTc Int : 428 ms Sinus rhythm with Premature atrial complexes Otherwise normal ECG When compared with ECG of 04-NOV-2018 09:00, Premature atrial complexes are now Present Referred By: Izzy Jackson Electronically Signed By:PHOENIX CABRERA MD
[2023-09-22 12:11] VITALS: BP 125/57; PULSE 86; RESP 18; O2SAT 97; BMI 23.9
--- NOTE | 2023-09-22 12:24 | HO.ANESPROP2 ---
Documented by User: Izzy Jackson NP 09/28/23 09:40 HPI - Anesthesia Eval Consult details Narrative: 78yo F for Hand Assist Laparoscopic Rectopexy, possible Sigmoid Resection, 09/29/23 No recent illness No CP/SOB with working/walking GERD: ppi mostly controls PMFSH Active Problems Active Problems: All Active Problems Carpal tunnel syndrome of right wrist (Acute) Carpal tunnel syndrome of left wrist (Acute) Ankle injury (Acute) Anemia (Acute) Sleep disorder, unspecified (Acute) Restless leg syndrome (Acute) Hypersomnia (Acute) Dysthymia (Acute) Age-related osteoporosis without current pathological fracture (Acute) Hypercholesteremia (Acute) Elevated BUN (Acute) Rectal prolapse (Acute) Bilateral hand numbness (Acute) History of left knee replacement (Acute) Past Medical History Medical History (Updated 09/29/23 @ 09:07 by Martha Simms MD) Elevated BUN Carpal tunnel syndrome of left wrist Carpal tunnel syndrome of right wrist Arthritis Rectal prolapse Hiatal hernia GERD (gastroesophageal reflux disease) Ankle fracture Bilateral hand numbness RLS (restless legs syndrome) High cholesterol Depression Hypertension Family History Family History Brother Melanoma of face Father Colon cancer Family history of problems with anesthesia: No Surgical History Surgical History Hx of bilateral cataract extraction H/O colonoscopy (~08/21/23) History of esophagogastroduodenoscopy (EGD) History of surgery on lower extremity History of carpal tunnel surgery of left wrist History of left knee replacement History of total right knee replacement (~11/2018) History of Problems with Anesthesia: No Social History Social History Household Members Other:: son Are you a primary health care liaison to a significant other at home: No Do you presently have visiting nurse or other home services: No Alcohol intake: current Alcohol intake frequency: holidays/special occasions only Patient Tobacco Use Status: Never used Tobacco Use of substances other than those prescribed or required for medical reasons: No Have you been hit, kicked, punched, or otherwise hurt by someone within the past year? 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 Meds Allergies Allergy/AdvReac Type Severity Reaction Status Date / Time No Known Allergies Allergy Verified 08/31/23 11:42 [No Known Allergies*] Home Medications ?Medication ?Instructions ?Recorded ?Confirmed ?Last Taken ?Type atorvastatin 10 mg tablet 10 mg PO BEDTIME 01/03/20 09/22/23 09/28/23 History calcium carbonate 1,000 mg-vitamin 1 tab PO QAM 01/03/20 09/22/23 09/28/23 History D3 20 mcg (800 unit) tablet naproxen 500 mg tablet 500 mg PO BID PRN Pain 01/03/20 09/22/23 09/22/23 History omeprazole 40 mg capsule,delayed 40 mg PO QAM 01/03/20 09/22/23 09/29/23 History release pramipexole 0.25 mg tablet 0.5 mg PO BEDTIME 01/03/20 09/22/23 09/28/23 History venlafaxine 75 mg capsule,extended 225 mg PO BEDTIME 01/03/20 09/22/23 09/28/23 History release 24 hr (Effexor XR) multivitamin (Daily Multi-Vitamin 1 tab PO QAM 01/26/20 09/22/23 09/28/23 History tablet) cetirizine 10 mg tablet 10 mg PO BEDTIME 09/22/23 09/22/23 09/28/23 History Exam Height,Weight and Vital Signs: Height 5 ft 3 in Weight 61.235 kg Last Vital Signs Pulse 86 09/22/23 12:11 Resp 18 09/22/23 12:11 BP 125/57 L 09/22/23 12:11 Pulse Ox 97 09/22/23 12:11 O2 Del Method Room Air 09/22/23 12:11 Pertinent Lab Results Pertinent Lab Results: Lab Results 09/22/23 09/22/23 Range/Units 12:56 12:57 WBC 7.1 (4.8-10.8) X10*3/uL RBC 3.86 L (4.20-5.50) X10*6/uL Hgb 11.8 L (12.0-16.0) g/dl Hct 36.2 L (37.0-47.0) % MCV 93.8 (80.0-98.0) fL MCH 30.6 (27.0-33.0) pg MCHC 32.6 (31.0-35.0) g/dl RDW 14.2 (11.0-16.0) % Plt Count 357 (160-400) X10*3/uL MPV 10.9 (9.4-12.3) fL Absolute Nucleated RBC 0.000 (0.0-0.012) X10*3/uL Nucleated RBC % (auto) 0.0 (0.0-0.2) /100WBC Sodium 139 (135-145) mmol/L Potassium 3.8 (3.3-5.1) mmol/L Chloride 103 (96-108) mmol/L Carbon Dioxide 28 (22-29) mmol/L Anion Gap 12 (12-20) BUN 16 (9-16) mg/dL Creatinine 0.91 (0.5-1.4) mg/dL Estim Creat Clear Calc 42.8 Estimated GFR 60 Random Glucose 85 (60-115) mg/dL Calcium 9.3 (8.4-10.2) mg/dL Blood Type O Negative Antibody Screen NEGATIVE Narrative Narrative: EKG 09/2023 Vent. Rate : 074 BPM Atrial Rate : 074 BPM P-R Int : 176 ms QRS Dur : 080 ms QT Int : 386 ms P-R-T Axes : 078 018 051 degrees QTc Int : 428 ms Sinus rhythm with Premature atrial complexes Otherwise normal ECG When compared with ECG of 04-NOV-2018 09:00, Premature atrial complexes are now Present Airway Mallampati Class: III TM Dist: >3cm Neck ROM: Full Denture: Upper Loose/Missing/Broken Teeth: Yes (Lower left broken, missing lower molars) Heart: RRR Lungs: CTAB Assessment and Plan Assessment Anesthesia Assessment: Anesthesia Plan Discussed and PAT Visit Final Anesthetic Review Family History of Problems with Anesthesia: No History of Problems with Anesthesia: No Documented by User: Martha Simms MD 09/29/23 09:10 PMF Active Problems Active Problems: All Active Problems Anemia (Acute) Sleep disorder, unspecified (Acute) Restless leg syndrome (Acute) Hypersomnia (Acute) Dysthymia (Acute) Age-related osteoporosis without current pathological fracture (Acute) Hypercholesteremia (Acute) Rectal prolapse (Acute) Bilateral hand numbness (Acute) History of left knee replacement (Acute) Past Medical History Medical History (Updated 09/29/23 @ 09:07 by Martha Simms MD) Elevated BUN Carpal tunnel syndrome of left wrist Carpal tunnel syndrome of right wrist Arthritis Rectal prolapse Hiatal hernia GERD (gastroesophageal reflux disease) Ankle fracture Bilateral hand numbness RLS (restless legs syndrome) High cholesterol Depression Hypertension Family History Family History Brother Melanoma of face Father Colon cancer Family history of problems with anesthesia: No Surgical History Surgical History Hx of bilateral cataract extraction H/O colonoscopy (~08/21/23) History of esophagogastroduodenoscopy (EGD) History of surgery on lower extremity History of carpal tunnel surgery of left wrist History of left knee replacement History of total right knee replacement (~11/2018) History of Problems with Anesthesia: No Social History Social History Household Members Other:: son Are you a primary health care liaison to a significant other at home: No Do you presently have visiting nurse or other home services: No Alcohol intake: current Alcohol intake frequency: holidays/special occasions only Patient Tobacco Use Status: Never used Tobacco Use of substances other than those prescribed or required for medical reasons: No Have you been hit, kicked, punched, or otherwise hurt by someone within the past year? 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 Meds Allergies Allergy/AdvReac Type Severity Reaction Status Date / Time No Known Allergies Allergy Verified 08/31/23 11:42 [No Known Allergies*] Home Medications ?Medication ?Instructions ?Recorded ?Confirmed ?Last Taken ?Type atorvastatin 10 mg tablet 10 mg PO BEDTIME 01/03/20 09/22/23 09/28/23 History calcium carbonate 1,000 mg-vitamin 1 tab PO QAM 01/03/20 09/22/23 09/28/23 History D3 20 mcg (800 unit) tablet naproxen 500 mg tablet 500 mg PO BID PRN Pain 01/03/20 09/22/23 09/22/23 History omeprazole 40 mg capsule,delayed 40 mg PO QAM 01/03/20 09/22/23 09/29/23 History release pramipexole 0.25 mg tablet 0.5 mg PO BEDTIME 01/03/20 09/22/23 09/28/23 History venlafaxine 75 mg capsule,extended 225 mg PO BEDTIME 01/03/20 09/22/23 09/28/23 History release 24 hr (Effexor XR) multivitamin (Daily Multi-Vitamin 1 tab PO QAM 01/26/20 09/22/23 09/28/23 History tablet) cetirizine 10 mg tablet 10 mg PO BEDTIME 09/22/23 09/22/23 09/28/23 History Exam Height,Weight and Vital Signs: Height 5 ft 3 in Weight 61.235 kg Last Vital Signs Pulse 86 09/22/23 12:11 Resp 18 09/22/23 12:11 BP 125/57 L 09/22/23 12:11 Pulse Ox 97 09/22/23 12:11 O2 Del Method Room Air 09/22/23 12:11 Vital Signs Temp Pulse Resp BP Pulse Ox O2 Del Method 09/29/23 06:30 98.0 F 86 16 122/78 97 Room Air Pertinent Lab Results Pertinent Lab Results: Lab Results 09/22/23 09/22/23 Range/Units 12:56 12:57 WBC 7.1 (4.8-10.8) X10*3/uL RBC 3.86 L (4.20-5.50) X10*6/uL Hgb 11.8 L (12.0-16.0) g/dl Hct 36.2 L (37.0-47.0) % MCV 93.8 (80.0-98.0) fL MCH 30.6 (27.0-33.0) pg MCHC 32.6 (31.0-35.0) g/dl RDW 14.2 (11.0-16.0) % Plt Count 357 (160-400) X10*3/uL MPV 10.9 (9.4-12.3) fL Absolute Nucleated RBC 0.000 (0.0-0.012) X10*3/uL Nucleated RBC % (auto) 0.0 (0.0-0.2) /100WBC Sodium 139 (135-145) mmol/L Potassium 3.8 (3.3-5.1) mmol/L Chloride 103 (96-108) mmol/L Carbon Dioxide 28 (22-29) mmol/L Anion Gap 12 (12-20) BUN 16 (9-16) mg/dL Creatinine 0.91 (0.5-1.4) mg/dL Estim Creat Clear Calc 42.8 Estimated GFR 60 Random Glucose 85 (60-115) mg/dL Calcium 9.3 (8.4-10.2) mg/dL Blood Type O Negative Antibody Screen NEGATIVE Airway Mallampati Class: III TM Dist: >3cm Neck ROM: Full Denture: Upper Loose/Missing/Broken Teeth: Yes (Left lower tooth broken, only few teeth bottom. Top dentures. Denies loose teeth) Heart: RRR Lungs: CTAB Assessment and Plan Assessment Anesthesia Assessment: Anesthesia Plan Discussed, PAT Visit and Chart Reviewed Final Anesthetic Review Family History of Problems with Anesthesia: No History of Problems with Anesthesia: No NPO: Yes ASA Class: III Final Preanesthetic Review: No Changes in Pt Med Stat, Meds/Allgs Chart Reviewed, Consent Obtained/Reviewed and Anes Risks/Benef Reviewed Patient Risk: Intermediate Procedure Risk: Intermediate Assessment/Block/Sedation in SS: Assess/Block/Sedation-SS Anesthetic Plan Anesthetic Plan: GA and Regional Block (TAP blocks) Disposition: Standard PACU and Inp. Admit - Standard Bed
[2023-09-22 13:55] LABS: Hematocrit 36.2 % (37.0-47.0); Hemoglobin 11.8 g/dl (12.0-16.0); Mean Corpuscular HGB Conc 32.6 g/dl (31.0-35.0); Mean Corpuscular Hemoglobin 30.6 pg (27.0-33.0); Mean Corpuscular Volume 93.8 fL (80.0-98.0); Mean Platelet Volume 10.9 fL (9.4-12.3); Platelet Count 357 X10*3/uL (160-400); Red Blood Count 3.86 X10*6/uL (4.20-5.50); Red Cell Distribution Width 14.2 % (11.0-16.0); White Blood Count 7.1 X10*3/uL (4.8-10.8)
[2023-09-22 14:15] LABS: Anion Gap 12 (12-20); Blood Urea Nitrogen 16 mg/dL (9-16); Calcium 9.3 mg/dL (8.4-10.2); Carbon Dioxide 28 mmol/L (22-29); Chloride 103 mmol/L (96-108); Creatinine Clr Calc Pharmacy 42.8; Estimated Glomerular Filt Rate 60; Glucose Random 85 mg/dL (60-115); Potassium 3.8 mmol/L (3.3-5.1); Sodium 139 mmol/L (135-145)
[2023-09-29] VITALS (11 sets, daily range): BP systolic 120–175; BP diastolic 64–87; PULSE 61–86; RESP 12–18; TEMP 36.1–36.7; O2SAT 94–98
[2023-09-29] MEDS: Lactated Ringers 1,000 ML 100 ML IVCONT ×3 (06:39→22:41)
--- OUTSIDE RECORDS SUMMARY | 2023-09-29 07:26 | XMS_ITS ---
Author Organization Sebastian Boland MD Address [address] [place] [phone] Care Team Providers Care Sales Representative [employer] Name Role Phone Sebastian Boland Primary Care Provider REASON FOR VISIT FASTING LIPIDS Encounters Encounter Location Date Provider Diagnosis Sebastian Boland MD [address] [place] [address] Drive [address] [place] [phone] 09/25/2023 Sebastian Boland Hypercholesteremia E 78.00 ASSESSMENTS Encounter Date Diagnosis Assessment Notes Treatment Notes Treatment Clinical Notes 09/25/2023 Hypercholesteremia (ICD-10 - E78.00) PLAN OF TREATMENT Pending Test Test Name Order Date Liver Panel 09/25/2023 Lipid Panel with Reflex 09/25/2023 Next Appt Details Provider Name:Sebastian gaxiola, 03/22/2024 07:45:00 AM, [address] [place] [address], [address], [phone], Provider Name:Sebastian gaxiola, 03/29/2024 09:30:00 AM, [address] [place] [address], [address], [phone],
--- OUTSIDE RECORDS SUMMARY | 2023-09-29 07:27 | XMS_ITS ---
Author Organization Sebastian Boland MD Address [address] [place] [phone] Care Team Providers Care Monitoring And Evaluation Advisor Name Role Phone Sebastian Boland Primary Care Provider [phone] REASON FOR VISIT Concerta 27mg MEDICATIONS Medication SIG (Take, Route, Fr equency, Duration) Notes Start Date End Date Status Concerta 18 MG 1 tablet in the morn ing Orally Once a day for 30 days 09/10/2023 Active Encounters Encounter Location Date Provider Diagnosis Sebastian Boland MD [address] [place] [address] Drive [address] [place] [phone] 09/10/2023 Sebastian Boland Attention deficit hyperactivity disorder (ADHD), combined type F90.2 ASSESSMENTS Encounter Date Diagnosis Assessment Notes Treatment Notes Treatment Clinical Notes 09/10/2023 Attention deficit hyperactivity disorder (ADHD), combined type (ICD-10 - F90.2) PLAN OF TREATMENT Medication Medication Name Sig Start Date Stop Date Notes Concerta 18 MG 1 tablet in the morn ing Orally Once a day for 30 days 09/10/2023 Next Appt Details Provider Name:Sebastian gaxiola, 03/22/2024 07:45:00 AM, [address], [address], [place], [phone], Provider Name:Sebastian gaxiola, 03/29/2024 09:30:00 AM, [address], [address], [place], [phone],
--- OUTSIDE RECORDS SUMMARY | 2023-09-29 07:27 | XMS_ITS ---
Author Organization Sebastian Boland MD Address [address] [place] [phone] Care Team Providers Care [employer] Operator Name Role Phone Sebastian Boland Primary Care Provider [phone] REASON FOR VISIT Two things Encounters Encounter Location Date Provider Diagnosis Sebastian Boland MD [address] [facility] [address] [place] [phone] 09/17/2023 Sebastian Boland PLAN OF TREATMENT Next Appt Details Provider Name:Sebastian gaxiola, 03/22/2024 07:45:00 AM, [address] [place] [address], [address] [place] [address], [phone], Provider Name:Sebastian gaxiola, 03/29/2024 09:30:00 AM, [address] [place] [address], [address], [phone],
--- OUTSIDE RECORDS SUMMARY | 2023-09-29 07:27 | XMS_ITS | Patient Health Record ---
Author Organization Sebastian Boland MD Address [address] [place], [place] [id number] Care Team Providers Care Electrical Designer Drafter Name Role Phone Seabstian Boland Primary Care Provider [phone] ALLERGIES No Known Allergies RESULTS Component Value Reference Range Notes MM tomosynthesis screening B I Reviewed date:01/05/2023 12:28:34 PM Interpretation: Performing Lab: Notes/Report: [address] [place] [address] Mammography Report Signed Patient: Katelynn Hanna MR#: [id number] : 1945 Acct:[id number] Age/Sex: 77 / F ADM Date: 12/12/22 Loc: HO.MAMMO Attending Dr: Sebastian Boland MD Ordering Physician: Sebastian Boland MD Results: 1Ne gative Date of Service: 12/12/22 Follow Up: 1 Year From [facility] Mammogram Procedure(s): MM tomosynthesis screening BI Accession Number(s): [id number] cc: Sebastian Boland MD EXAMINATION: MM SCREENING DIGITAL BREAST TOMOSYNTHESIS, BILATERAL CLINICAL INFORMATION: Screening. Asymptomatic. COMPARISON: Mammography: This study is compared with prior exams dating back to 2018. TECHNIQUE: Digital breast tomosynthesis is performed in both the craniocaudal and mediolateral oblique views along with computer-aided detection (CAD). Synthesized 2D images are generated from the tomosynthesis. FINDINGS: The breasts are heterogeneously dense, which may obscure small masses (ACR BI-RADS breast composition Category c). There are no significant masses, abnormal calcifications, or other abnormalities. MM/MM tomosynthesis screening BI IMPRESSION: No mammographic evidence of malignancy. ASSESSMENT: BI-RADS BI-RADS 1 - Negative RECOMMENDATION: Routine annual mammography screening. 1 year F/U This examination should not preclude the clinical evaluation of a suspicious palpable abnormality. This patient's information was entered into a reminder system with a target due date for their next mammogram. Dictated By: Peg Still MD Signed By: <Electronically signed by Peg Still MD in OV> 01/05/23 0740 DD/ 0814 TD/TT: Dry Dip Worker: Taylor Quintero Reviewed date:03/20/2023 11:11:14 AM Interpretation: Performing Lab:[facility], [address] [place] [phone] Notes/Report: Taylor Quintero See Note Specimen held untested for 24 hours; Call to request Chemistry testing. Complete Blood Count Auto Di ff Reviewed date:03/20/2023 03:30:50 PM Interpretation: Performing Lab:[facility], [address] [place] [phone] Notes/Report: White Blood Count 6.3 4.8-10.8 X10*3/uL Red Blood Count 4.22 4.20-5.50 X10*6/uL Hemoglobin 12.4 12.0-16.0 g/dl Hematocrit 38.5 37.0-47.0 % Mean Corpuscular Volume 91.2 80.0-98.0 fL Mean Corpuscular Hemoglobin 29.4 27.0-33.0 pg Mean Corpuscular HGB Conc 32.2 31.0-35.0 g/dl Red Cell Distribution Width 13.4 11.0-16.0 % Platelet Count 378 160-400 X10*3/uL Mean Platelet Volume 10.8 9.4-12.3 fL Neutrophils Percent Auto 47.4 45-73 % Imm Gran Pct Auto 0.2 0.0-0.4 % Lymphocytes Percent Auto 32.5 20-40 % Monocytes Percent Auto 12.8 2-11 % Eosinophils Percent Auto 6.6 0-4 % Basophils Percent Auto 0.5 0-2 % NRBC Pct Auto 0.0 0.0-0.2 /100WBC Neutrophils Absolute Auto 3.0 2.0-8.3 x10*3/u L Imm Gran Abs Auto 0.01 0.00-0.03 X10*3/uL Lymphocytes Absolute Auto 2.0 1.2-4.9 X10*3/u L Monocytes Absolute Auto 0.8 0.1-1.2 X10*3/uL Eosinophils Absolute Auto 0.4 0.0-0.4 X10*3/u L Basophils Absolute Auto 0.0 0.0-0.2 X10*3/uL NRBC Abs Auto 0.000 0.0-0.012 X10*3/uL Comprehensive [place]. Panel Fa st Reviewed date:03/20/2023 12:18:28 PM Interpretation: Performing Lab:[facility], [address] [place] [phone] Notes/Report: Sodium 139 135-145 mmol/L Potassium 3.8 3.3-5.1 mmol/L Chloride 106 96-108 mmol/L Carbon Dioxide 27 22-29 mmol/L Anion Gap 10 12-20 Blood Urea Nitrogen 15 9-16 mg/dL Creatinine 0.69 0.5-1.4 mg/dL Estimated Glomerular Filt Rate > 60 NOTE: For -Cub[place] individuals, multiply the result by 1.210. Chronic Kidney Disease: Estimated GFR < 60 mL/min/1.73m2 Severe Kidney Disease: Estimated GFR < 15 mL/min/1.73m2 Glucose Fasting 89 60-99 mg/dL Calcium 8.9 8.4-10.2 mg/dL Bilirubin Total 0.4 0.0-1.0 mg/dL Aspartate Amino Transferase 26 5-31 U/L Alanine Aminotransferase 19 0-31 U/L Total Protein 6.8 6.5-8.0 g/dL Albumin Level 3.7 3.5-5.0 g/dL Alkaline Phosphatase 54 39-117 U/L Lipid Panel Reviewed date:03/20/2023 12:04:17 PM Interpretation: Performing Lab:[facility], [address] [place] [phone] Notes/Report: Triglycerides 61 <150 mg/dL Desirable Triglyceride: less than 150 mg/dL Borderline High Triglyceride 150-199 mg/dL High Triglyceride: 200-499 mg/dL Very High Triglyceride: greater than or equal to 5OO mg/dL Cholesterol 149 <200 mg/dL Desirable Cholesterol: less than 200 mg/dL Borderline High Cholesterol: 200-239 mg/dL High Cholesterol: greater than 239 mg/dL LDL Cholesterol Calculated 73 <100 mg/dL Desirable LDL: less than 100 mg/dL Near Optimal/Above Optimal LDL: 110-129 mg/dL Borderline High LDL: 130-159 mg/dL High LDL: 160-189 mg/dL Very High LDL: greater than or equal to 190 mg/dL HDL Cholesterol 64 >40 mg/dL Desirable HDL: greater than 40 mg/dL Note: This HDL assay may give artificially low results in patients with liver disease. Urine Culture Reviewed date:03/28/2023 06:37:13 PM Interpretation: Performing Lab:[facility], [address] [place] [phone] Notes/Report: Urine Culture No growth. UA ClnCatch+Micro w/rflx Cul t Reviewed date:03/28/2023 06:50:29 PM Interpretation: Performing Lab:[facility], [address] [place] [phone] Notes/Report: Urine, Clean Catch Color Urine Yellow Appearance Urine Clear PH 5.5 5.0-9.0 Glucose Urine UA Negative Negative mg/dL Urine Blood Negative Negative Specific [place] - Urine 1.020 1.005-1.025 Urine Protein Negative Neg-Trace mg/dL Urine Ketones Negative Negative mg/dL Nitrite Urine Negative Negative Leukocyte Esterase Urine Small (1+) Negative RBC Urine 0-2 0-2 /HPF WBC Urine 6-10 0-5 /HPF Squamous Epithelial Cell Urine 0-2 0-2 /HPF Calcium Oxalate Crystals Urine Present Bacteria Urine None Seen None Seen Hyaline Casts Urine 0-2 0-2 /LPF CT abdomen pelvis wo con Reviewed date:07/28/2023 01:01:48 PM Interpretation: Performing Lab: Notes/Report: [address] [address] [address] Scan Report Signed Patient: Katelynn Hanna MR#: [id number] : 1945 Acct:[id number] Age/Sex: 78 / F ADM Date: 07/16/23 Loc: HO.CT Attending Dr: Adren Feliz MD Ordering Physician: Arden Feliz MD Date of Service: 07/16/23 Procedure(s): CT abdomen pelvis wo IV con Accession Number(s): [id number] cc: Sebastian Boland MD; Arden Feliz MD EXAMINATION: CT ABDOMEN AND PELVIS WITHOUT CONTRAST CLINICAL INFORMATION: Rectal prolapse COMPARISON: None available. TECHNIQUE: Multidetector volumetric imaging was performed from the superior aspect of the liver through the pubic symphysis without IV contrast. Oral contrast was administered. Sagittal and coronal reformatted images were obtained on the technologist's workstation. This CT examination was performed using dose optimization techniques as appropriate, variously including the following: *Automated exposure control *Adjustment of mA and/or kV according to patient size (this includes techniques or standardized protocols for targeted exams where dose is matched to indication/reason for exam; i.e. extremities or head) *Use of iterative reconstruction technique DLP: 375 mGy-cm FINDINGS: DEPARTMENT STORE SALESPERSON: Fecal retention. Nonobstructive bowel pattern. LUNG BASES: Right lower lobe compressive atelectasis. Nonenlarged heart. No pericardial effusion. HEPATOBILIARY: Noncontrast enhanced liver without focal lesion. No intra or extrahepatic biliary ductal dilatation. Unremarkable gallbladder. SPLEEN: Unremarkable. ADRENAL GLANDS: Unremarkable. KIDNEYS AND URETERS: The kidneys are normal in size, shape, and attenuation. Mild right intrarenal collecting system fullness. Small right extrarenal pelvis. No hydroureteronephrosis or calculi seen. No perinephric stranding. BLADDER: Distended and unremarkable. GASTROINTESTINAL TRACT: Contrast in distal esophagus. Contrast and debris filled distended stomach. Nonobstructive bowel pattern. Unremarkable appendix. Moderately severe fecal retention. Mid and distal descending colon are decompressed. Contrast does not reach the colon limiting evaluation. No definite CT findings to confirm clinically suspected rectal prolapse. ABDOMINAL WALL: No significant hernia is appreciated. LYMPH NODES: No pathologic lymphadenopathy. VASCULAR: Atherosclerotic calcifications nonaneurysmal aorta and iliac arteries. Normal caliber inferior vena cava. PELVIC VISCERA: 1.9 cm rounded lesion is identified within the uterus, unclear if within the endometrial cavity or submucosal. OSSEOUS STRUCTURES: Degenerative changes. Levoscoliosis. No suspicious osseous lesions. CT/CT abdomen pelvis wo IV con IMPRESSION: Contrast distal esophagus, question reflux disease. Moderately severe fecal retention. Evaluation limited by lack of oral contrast transit into the colon, especially with respect to clinically suspected rectal prolapse. Mild left intrarenal collecting system prominence. No renal, ureteral or bladder calculi. Uterine lesion with calcification, question submucosal fibroid versus endometrial lesion. Pelvic ultrasound recommended. Fleischner guidelines were followed. Dictated By: Rochelle Hopper MD Signed By: <Electronically signed by Rochelle Hopper MD in OV> 07/28/23 1155 DD/ 1639 TD/TT: Dry Dip Worker: US pelvic and transvaginal ( Not yet reviewed by provider) Interpretation:see back 10-02-23 Performing Lab: Notes/Report: [address] [address] Ultrasound Report Signed Patient: Katelynn Hanna MR#: [id number] : 1945 Acct:[id number] Age/Sex: 78 / F ADM Date: 08/18/23 Loc: .US Attending Dr: Sebastian Boland MD Ordering Physician: Sebastian Boland MD Date of Service: 08/18/23 Procedure(s): US pelvic and transvaginal Accession Number(s): [id number] cc: Sebastian Boland MD EXAMINATION: US PELVIS CLINICAL INFORMATION: Fibroids, postmenopausal, denies pain COMPARISON: None available. TECHNIQUE: Ultrasound of the pelvis is performed using both transabdominal and transvaginal transducers along with Doppler. Transvaginal imaging is performed due to inadequate visualization transabdominally. FINDINGS: The uterus is anteverted and measures 6.5 x 3.2 x 4.0 cm. 2.0 x 1.5 x 2.5 cm and 0.7 x 0.4 x 0.8 cm hypoechoic uterine masses are characteristic of fibroids. Endometrium difficult to image due to fibroids. Possible imaged segment of endometrium with thickness of 3 mm, although these measurements are unreliable. Right ovary measures 1.2 x 0.7 x 0.7 cm, volume 0.3 mL and is unremarkable. Left ovary was seen only on limited transabdominal ultrasound images and measures 1.5 x 0.8 x 0.9 cm, volume 0.6 mL. No significant free fluid. Nabothian cysts in the cervix. US/US pelvic and transvaginal IMPRESSION: 1. Uterine fibroids. 2. Endometrium difficult to image due to fibroids. Possible imaged segment of endometrium with thickness of 3 mm, although these measurements are unreliable. 3. Unremarkable bilateral ovaries. 4. Nabothian cysts in the cervix. Dictated By: Leonor Ruelas MD Signed By: <Electronically signed by Leonor Ruelas MD in OV> 09/09/23 1054 DD/ 1632 TD/TT: Dry Dip Worker: REASON FOR REFERRAL Reason rectal prolapse Diagnosis 1 Rectal prolapse (K62 .3) Referral Organization Sebastian Boland MD Referring Provider First Name Sebastian Referring Provider Last Name Krystian Referring Provider Speciality Internal M edicine Referred Provider Arden Feliz Referred Provider Specialty Surgery General Notes Neda Smallwood 04/03/2023 09:09:03 AM EST > OFFICE NOTE RECD Referral Priority Routine Referral Appointment Date 04/02/2023 MEDICATIONS Medication SIG (Take, Route, Frequency, Duration) Notes Start Date End Date Status Atorvastatin Calcium 10 MG TAKE ONE TABL ET BY MOUTH EVERY DAY for 90 Active Omeprazole 40 MG TAKE ONE CAPSULE BY MOUTH EVERY DAY for 90 Active Ventolin HFA 108 (90 Base) MCG/ACT 2 puffs as needed Inhalation every 4 hrs for 30 days 03/20/2016 Not-Taking Percocet 5-325 MG 0.5 tablet as needed Orally HS Not-Taking Clobetasol Propionate 0.05 % 1 application to affected area Externally Twice a day for 10 day(s) 02/24/2017 Not-Taking Pramipexole Dihydrochloride 0.25 MG TAKE TWO TABLETS BY MOUTH AT BEDTIME for 90 Active Concerta 18 MG 1 tablet in the morning Orally Once a day for 30 days 09/10/2023 Active Calcium 1000 + D 1000-800 MG-UNIT 1 tablet with a meal Orally Once a day Active Venlafaxine HCl ER 225 MG TAKE 1 TABLET BY MOUTH ONCE A DAY WITH FOOD (WITH THE 150 MG TABLET ONCE A DAY). for 30 Active Naproxen 500 MG TAKE ONE TABLET BY MOUTH TWICE A DAY for 30 Active IMMUNIZATIONS Vaccine Route Administration Date Status Comme nts Fluarix Quadrivalent IM Intramuscular 12/02/2016 Administe red Prevnar 13 IM Intramuscular 02/23/2017 Administered Fluarix Quadrivalent IM Intramuscular 12/29/2017 Administe red PPSV23 (Pnemovax) IM Intramuscular 06/10/2018 Administered Influenza High Dose IM Intramuscular 11/22/2018 Administer ed Fluarix Quadrivalent IM Intramuscular 11/17/2019 Administe red Influenza High Dose IM Intramuscular 12/28/2020 Administer ed Influenza High Dose IM Intramuscular 03/07/2022 Administer ed TDaP Unknown 10/07/2018 Refused Covid Vaccine Unknown 01/04/2021 Refused SOCIAL HISTORY Tobacco Use: Social History Observation Description Date Details (start date - stop date) Never Smoker NA - NA Sex Assigned At : Social History Observation Description Sex Assigned At Unknown Tobacco Use/Smoking Question Answer Notes Patient is a nonsmoker Additional Findings: Tobacco Non-User Cu rrent non-smoker, currently using no form of tobacco Alcohol Screen Question Answer Notes Did you have a drink contain ing alcohol in the past year? Yes How often did you have a dri nk containing alcohol in the past year? 2 to 4 times a month (2 points) How many drinks did you have on a typical day when you were drinking in the past year? 1 or 2 drinks (0 point) How often did you have 6 or more drinks on one occasion in the past year? Never (0 point) Points 2 Interpretation Negative PROBLEMS Problem Type ICD Code Onset Dates Problem Status W/U Status Risk SNOMED Code Notes Problem Hypercholesteremia (E78.00) Active confirmed 38268800 Problem Essential hypertension (I10) Active confirmed 29492846 Problem Restless legs syndrome (G25.81) Active confirmed 567053957 Problem Heart murmur (R01.1) Active confirmed 8 6000812 Problem Hip arthritis (M16.10) Active confirmed 80641520 Problem Age-related osteoporosis without current pathological fracture (M81.0) Active confirmed 17520824 Problem Dysthymia (F34.1) Active confirmed 3976 7006 Problem Blood loss anemia (D50.0) Active confirmed 564435800 Problem Acute non intractable tension-type headache (G44.209) Active confirmed 380131451 Problem Sciatica of right side (M54.31) Active confirmed 08531465 Problem Hypersomnia (G47.10) Active confirmed 7 8598052 Problem Loss of balance (R26.89) Active confirmed 690533625 Problem Bilateral carpal tunnel syndrome (G56.03) Active confirmed 63452631982195751 Problem Gastroesophageal reflux disease with esophagitis without hemorrhage (K21.00) Active confirmed 785007136 Problem Attention deficit hyperactivity disorder (ADHD), combined type (F90.2) Active confirmed 58514177 VITAL SIGNS Blood pressure diastolic 60 mm Hg 03/27/2023 Pat ient states weight is 139 Height 63 in 03/27/2023 Patient states weight is 139 Blood pressure systolic 122 mm Hg 03/27/2023 Melissa ent states weight is 139 Weight 139 lbs 03/27/2023 Patient states weight is 139 BMI 24.62 kg/m2 03/27/2023 Patient states weight is 139 PROCEDURES Procedure Date Ordered Date Performed Result Body Sit e Colonoscopy, Screening 08/21/2023 08/21/2023 N/A Encounters Encounter Location Date Provider Diagnosis Sebastian Boland MD [address] [place] [id number] 03/27/2023 Sebastian Boland Essential hypertensi on I10 ; Hypercholesteremia E78.00 ; Attention deficit hyperactivity disorder (ADHD), combined type F90.2 and Rectal prolapse K62.3 Sebastian Boland MD [address] [place] [id number] 03/20/2023 Sebastian Boland Blood tests for rout ine general physical examination Z00.00 and Hypercholesteremia E78.00 Sebastian Boland MD [address] [place] [id number] 09/25/2023 Sebastian Boland Hypercholesteremia E 78.00 Sebastian Boland MD [address] [place] [address] [id number] 10/23/2022 Sebastian Boland Attention deficit hyperactivity disorder (ADHD), combined type F90.2 Sebastian Boland MD [address] [place] [address] [id number] 11/21/2022 Sebastian Boland Attention deficit hyperactivity disorder (ADHD), combined type F90.2 Sebastian Boland MD [address] [place] [address] [id number] 12/25/2022 Sebastian Boland Attention deficit hyperactivity disorder (ADHD), combined type F90.2 Sebastian Boland MD [address] [place] [address] [id number] 01/29/2023 Sebastian Boland Attention deficit hyperactivity disorder (ADHD), combined type F90.2 Sebastian Boland MD [address] [place] [address] [id number] 03/05/2023 Sebastian Boland Attention deficit hyperactivity disorder (ADHD), combined type F90.2 Sebastian Boland MD [address] [place] [address] [id number] 04/07/2023 Sebastian Boland Attention deficit hyperactivity disorder (ADHD), combined type F90.2 Sebastian Boland MD [address] [place] [address] [id number] 05/11/2023 Sebastian Boland Attention deficit hyperactivity disorder (ADHD), combined type F90.2 Sebastian Boland MD [address] [place] [address] [id number] 06/08/2023 Sebastian Boland Attention deficit hyperactivity disorder (ADHD), combined type F90.2 Sebastian Boland MD [address] [place] [address] [id number] 06/18/2023 Sebastian Boland MD [address] [place] [address] [id number] 07/10/2023 Sebastian Boland Attention deficit hyperactivity disorder (ADHD), combined type F90.2 Sebastian Boland MD [address] [place] [address] [id number] 07/28/2023 Sebastian Boland Fibroid D21.9 Sebastian Boland MD [address] [place] [address] [id number] 08/07/2023 Sebastianinder Boland Attention deficit hyperactivity disorder (ADHD), combined type F90.2 Sebastian Boland MD [address] [place] [address] [id number] 09/07/2023 Sebastian Boland Attention deficit hyperactivity disorder (ADHD), combined type F90.2 Sebastian Boland MD [address] [place] [address] [id number] 09/10/2023 Sebastian Boland Attention deficit hyperactivity disorder (ADHD), combined type F90.2 Sebastian Boland MD [address] [place] [address] [address] [place] [id number] 09/17/2023 Sebastian Boland ASSESSMENTS Encounter Date Diagnosis Assessment Notes Treatment Notes Treatment Clinical Notes 03/27/2023 Essential hypertensi on (ICD-10 - I10) doing well onmeds 03/27/2023 Hypercholesteremia (ICD-10 - E78.00) doing well on meds 03/20/2023 Hypercholesteremia (ICD-10 - E78.00) 03/20/[address] ine general physical examination (ICD-10 - Z00.00) 09/25/2023 Hypercholesteremia (ICD-10 - E78.00) 10/23/2022 Attention deficit hyperactivity disorder (ADHD), combined type (ICD-10 - F90.2) 11/21/2022 Attention deficit hyperactivity disorder (ADHD), combined type (ICD-10 - F90.2) 12/25/2022 Attention deficit hyperactivity disorder (ADHD), combined type (ICD-10 - F90.2) 01/29/2023 Attention deficit hyperactivity disorder (ADHD), combined type (ICD-10 - F90.2) 03/05/2023 Attention deficit hyperactivity disorder (ADHD), combined type (ICD-10 - F90.2) 04/07/2023 Attention deficit hyperactivity disorder (ADHD), combined type (ICD-10 - F90.2) 05/11/2023 Attention deficit hyperactivity disorder (ADHD), combined type (ICD-10 - F90.2) 06/08/2023 Attention deficit hyperactivity disorder (ADHD), combined type (ICD-10 - F90.2) 07/10/2023 Attention deficit hyperactivity disorder (ADHD), combined type (ICD-10 - F90.2) 08/07/2023 Attention deficit hyperactivity disorder (ADHD), combined type (ICD-10 - F90.2) 09/07/2023 Attention deficit hyperactivity disorder (ADHD), combined type (ICD-10 - F90.2) 09/10/2023 Attention deficit hyperactivity disorder (ADHD), combined type (ICD-10 - F90.2) 03/27/2023 Attention deficit hyperactivity disorder (ADHD), combined type (ICD-10 - F90.2) doing well when she is on meds 07/28/2023 Fibroid (ICD-10 - D21.9) ord er printed and faxed to Centralized scheduling they will contact the patient with an appointment 03/27/2023 Rectal prolapse (ICD -10 - K62.3) referral to dr feliz/ REFERRAL MADE TO DR FELIZ .APPT SCHEDULED FOR 04/02 AT 8:30 AM . PATIENT AWARE PLAN OF TREATMENT Pending Test Test Name Order Date ECHO 08/15/2016 EMG 05/10/2020 Liver Panel 09/25/2023 Lipid Panel with Reflex 09/25/2023 US pelvic and transvaginal 07/28/2023 US pelvic and transvaginal 08/18/2023 Next Appt Details Provider Name:Sebastian Gomez ier, 03/22/2024 07:45:00 AM, [address] [place] [address], [address], [place], [place], [phone], Provider Name:Sebastian Gomez ier, 03/29/2024 09:30:00 AM, [address] [place] [address], [address], [place], [place], [phone], Insurance Providers Payer Name Payer Address Payer Phone Subscriber Number Group Number Insured Name Patient Relationship to Insured Coverage Start Date Coverage End Date [facility] [address] JU[place] Remy [phone] [id number] Adelapierre Katelynn Self - patient is the insured MEDICAL (GENERAL) HISTORY Medical History History ICD Code colonoscopy 2004; colonoscop y done by Dr. Tellez 03/22/18 - no further testing indicated.08/21/23 colonoscopy- stable Endoscopy 03/22/[address] Tellez Surgical History Surgery Date(Month/Year) Lt 1st [facility] Arthroplasty by Dr. Osuna 0 10/2016 Lt Total Knee Arthroplasty by Dr. Karla loving 02/2017 Rt Total Knee Arthroplasty by Dr. Karla loving 11/2018
--- NOTE | 2023-09-29 07:32 | MHC.SHP ---
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, no constipation Relevant Family History (Specify if Yes): No Relevant Social History: None Present Medications: see Short Stay Collaborative assessment Medical History: Significant History (Restless leg syndrome, hyperlipidemia, osteoporosis) Allergies: Allergies Allergy/AdvReac Type Severity Reaction Status Date / Time No Known Allergies Allergy Verified 08/31/23 11:42 [No Known Allergies*] Review of Systems Sugical H&P ROS: Negative: Constitution, Cardiovascular, Respiratory, Neurological, Psychiatric, Hem-Onc, Allergic/Immunologic, Gastrointestinal, Genitourinary, Musculoskeletal, Integumentary, Endocrine and Eyes/Ears/Nose/Throat Exam Surgical H&P Exam: Normal: HEENT, Normal: Heart, Normal: Lungs, Normal: Extremities, Normal: Abdomen, Normal: Skin and Normal: Neurological Exam Comment: Has full rectal prolapse Plan Diagnosis/Plan: Unchanged I have reviewed the history and physical and performed a pertinent physical examination on my patient. No changes have occurred unless specified. Time Spent With Patient Time: Total time managing care of this patient today ____ minutes.
--- NOTE | 2023-09-29 10:08 | W.PM.OPN ---
Operative Note Operative Note Date of Service: 09/29/23 Narrative: Preop diagnosis: Full-thickness rectal prolapse Postop diagnosis: The same, with a very redundant sigmoid Procedure: Hand assisted laparoscopic sigmoid resection, with rectopexy, intraop flexible sigmoidoscopy Surgeon: Arden Van MD promotions assistant: BRITTANY Galvan The patient is a 78 year old female with a long history of rectal prolapse which has been worsening. She had been uncomfortable with ?sitting on a ball? outside the rectum all the time. The prolapse itself was seen in the office on examination and this was easily reproduced. She had very lax sphincter tone. She understood the technique of the planned procedure as well as the risks, benefits and alternatives She was brought to the operating room and placed in modified lithotomy position under general anesthesia via endotracheal tube. The abdomen and the perineum were prepped and draped in the usual sterile fashion. A Navas catheter was inserted. A surgical time-out had been done. The patient received Cefotan 2 g IV preoperatively I made a short low midline incision with a blade 15. This carried down through the full-thickness of the skin subcutaneous fat down to the fascia. The fascia was incised. The peritoneum was entered. An the Destin wound retractor was positioned. The GelPort was also attached along with the insufflating port. The peritoneal cavity was insufflated to a pressure of 15 mm Hg. We used a 10 mm 30 degree scope through the insufflating port. With laparoscopic visualization and inserted a 5/12 mm port in the epigastric area as well as the right lower quadrant. The camera was moved to the epigastric port With laparoscopic visualization I proceeded to then reflect the small bowel loops away from the pelvis. This allowed us to easily see the rectum. The patient was placed in a head down position. Proceeded to then incised the peritoneum along the right side of the rectum and the sigmoid using the LigaSure. This was extended all the way to the floor. The anterior peritoneal reflection was also opened up with the LigaSure . I proceeded to do the same incision on the left side of the pararectal area all the way to the sigmoid. This allowed us to mobilize the rectum posteriorly along the presacral surface. By doing so was therefore able to utilize the entire rectum down to the floor. Examination was sigmoid revealed that this was very done done so we decided that we had to resect part of the sigmoid to achieve better chance of success with prolapse repair I had to incise the peritoneum along the left colon as well using the LigaSure to achieve more mobilization of the entire left colon and sigmoid. Then she was my point of resection distally and proximally. I created a mesenteric window in the distal area at the rectosigmoid using the LigaSure. I used the Endo-SEBASTIAN 30 mm stapler through this and this was fired to transect the rectosigmoid I created my mesenteric window on the point of transection in the more proximal sigmoid making sure what we had adequate length to bring down to the pelvis for end-to-end anastomosis. I used the Endo-SEBASTIAN 30 mm stapler as well across this sigmoid to transect this. We completed transection of this long segment of sigmoid by dividing the attached mesentery using the LigaSure closed with the colon. We made sure that we had good hemostasis on the divided mesentery was achieved with ligation of oozing areas Polysorb 3-0 ties as well as with the LigaSure itself Hemostasis was confirmed along the divided mesentery. We are able to deliver the resected sigmoid through the Destin wound retractor. This retracted sigmoid measured about 24 cm in length I brought up the sigmoid stump through the Destin wound retractor. I excised the staple line using electrocautery. I dilated the lumen up to 31 mm without difficulty using the rectal dilators. I therefore chose the 31 mm EEA stapler apparatus. I excision of the anvil through the lumen. I made my pursestring stitch around this anvil using a Prolene 2-0 and tightened this. The library clerical assistant then proceeded to dilate the rectum up to 31 cm. We could see the dilator at the rectal stump. The EEA apparatus was advanced this all the way to the staple line. The spike of the stapler apparatus was activated. The anvil was locked onto the spike. The EEA apparatus was closed and the and circular anastomosis was created. The EEA apparatus was withdrawn. The anastomotic donuts were examined this appeared to be complete with good thickness We tested the anastomosis by insufflating the rectum using a bulb syringe with air. There was no bubbling from the staple line with this immersed in irrigation fluid I then proceeded to do my suture rectopexy. I used Prolene 2 sutures to the presacral area near the sacral promontory to the seromuscular layer of the rectum. Two rows of these stitch were applied on the left and right side I then proceeded to do a flexible sigmoidoscopy. I was able insert the Olympus scope through the rectum all the way past the anastomosis The anastomotic site appeared intact. There was no evidence of any leak. There was no signs of ischemia. No bleeding I desufflated and removed the sigmoidoscope. We then proceeded to close the fascia after irrigation, with a running Maxon 1 stitch. We examined the fascial closure laparoscopically through the epigastric port. There was no bowel caught by the sutures. There was no evidence of any bleeding or any bowel injury We therefore desufflated through the epigastric port and removed all ports. Skin incision was achieved using Polysorb 4-0 subcuticular running sutures. Dressings were applied The procedure was completed The patient tolerated the procedure well. There were no immediate complications. Initial final counts of sponges and instruments were correct. Estimated blood loss was about 25 cc The patient was extubated without difficulty and transferred to the recovery room with stable vital signs.
[2023-09-29] MEDS: Aprepitant 32 MG/4.4 ML VIAL IVPUSH (10:48)
[2023-09-29] MEDS: Acetaminophen 1,000 MG/100 ML PIGGYBACK 400 MG IV ×2 (13:01→19:47)
--- NOTE | 2023-09-29 14:20 | PHA.MEDREC ---
Addendum entered by Subha Andrew [facility] 09/29/23 16:24: Reviewed by [facility]. Addendum entered by Clifford Cr 09/29/23 15:23: Typo on the Venlafaxine dosing. Confirmed patient is on 225mg as shown in her claims and patient confirmed that dose. Original Note: Pharmacy Consult ? Medication Reconciliation Pharmacy has completed the medication reconciliation. Confirmed medications with patient. Patient confirmed her Venlafaxine 37.5mg and 150mg dosing and she takes those together daily for a total of 187.5mg daily. She is taking a Methyphenidate 18mg but she herself stopped the medication last week for the surgery and states she will be back on it when she leaves.
--- NOTE | 2023-09-29 15:42 | PM.EVENT ---
Event Note Date of Service: 09/29/23 Event Note: Seen postop Underwent sigmoid resection and rectopexy earlier Appears to have good pain control Stable vital signs Abdomen soft Looks well Output clear, adequate Pain management Incentive spirometry Time Spent With Patient Time: Total time managing care of this patient today ____ minutes.
[2023-09-29] MEDS: Venlafaxine HCl ER 75 MG CAP.ER.24H 225 MG PO (20:22)
[2023-09-29] MEDS: Pramipexole Di-HCL 0.25 MG TABLET 0.5 MG PO (20:22)
[2023-09-29] MEDS: Atorvastatin Calcium 10 MG TABLET PO (20:22)
[2023-09-29] MEDS: Loratadine 10 MG TABLET PO (20:22)
[2023-09-30] VITALS: BP 133/63; PULSE 58; RESP 16; TEMP 36; O2SAT 97
[2023-09-30] MEDS: Acetaminophen 1,000 MG/100 ML PIGGYBACK 400 MG IV ×4 (01:04→19:41)
[2023-09-30] MEDS: 0.9 % Sodium Chloride Flush 3 ML SYRINGE IVFLUSH (01:04)
[2023-09-30 03:39] VITALS: BP 131/62; PULSE 72; RESP 16; TEMP 36.7; O2SAT 95
[2023-09-30] MEDS: oxyCODONE HCl Immed Release 5 MG TABLET PO ×4 (05:36→20:10)
[2023-09-30] MEDS: Omeprazole 40 MG CAPSULE.DR PO (05:36)
[2023-09-30 06:45] LABS: MANUAL DIFF FLAG NO
--- NOTE | 2023-09-30 06:48 | P.PNGS_ITS ---
Subjective Subjective Date of Service: 09/30/23 <[facility] Last Filed: 09/30/23 07:03> 09/30/23 <Marielos Galvan PA-C - Last Filed: 09/30/23 07:54> 09/30/23 <Adren Van MD - Last Filed: 09/30/23 08:56> Interval history: Patient reports she is doing well overall. Reports her pain is overall managed. Says the nerve block wore off overnight, received oxycodone this morning. She continues to ice the incision overnight and use the incentive spirometer. She is passing gas and urinary catheter is in place. Denies BM. Tolerating clear liquid diet without nausea or vomiting. Interested in advancing diet. <[facility] Last Filed: 09/30/23 07:03> Physical Exam 2 Vital Signs: Vital Signs: Last Vital Signs Temp 98.0 F 09/30/23 03:39 Pulse 72 09/30/23 03:39 Resp 16 09/30/23 03:39 BP 131/62 09/30/23 03:39 Pulse Ox 95 09/30/23 03:39 O2 Del Method Nasal Cannula 09/30/23 03:39 O2 Flow Rate 1 09/30/23 03:39 BMI result Body Mass Index 23.9 <[facility] Filed: 09/30/23 07:03> Const: General: cooperative and comfortable <[facility] Filed: 09/30/23 07:03> Orientation/consciousness: patient oriented x3 <[facility] Filed: 09/30/23 07:03> Chest: Chest palpation & inspection: normal inspection of the chest < [facility] Last Filed: 09/30/23 07:03> Resp: Effort & Inspection: normal respiratory effort and able to speak in complete sentences <[facility] Last Filed: 09/30/23 07:03> Auscultation: clear to auscultation bilaterally <[facility] Filed: 09/30/23 07:03> Cardio: Rate: regular rate <[facility] Filed: 09/30/23 07:03> Rhythm: regular rhythm <[facility] Filed: 09/30/23 07:03> Heart sounds: S1 normal heart sound present and S2 normal heart sound present <[facility] Last Filed: 09/30/23 07:03> GI: Inspection: Yes normal to inspection and Yes incision (bandages are clean, dry and intact) <[facility] Last Filed: 09/30/23 07:03> Palpation (GI): Soft to palpation and Tenderness to palpation present (GI) < [facility] Last Filed: 09/30/23 07:03> Skin: General skin exam: no rashes or lesions noted <Marielos Galvan PA-C - Last Filed: 09/30/23 07:54> Neuro: General: patient oriented x3 <[facility] Last Filed: 09/30/23 07:03> Objective Data Active Medications Atorvastatin Calcium (Atorvastatin Calcium 10 Mg Tablet) 10 mg PO BEDTIME [facility] Last Admin: 09/29/23 20:22 Dose: 10 mg Documented By: SIS Calcium Carbonate (Calcium Carbonate 750 Mg Tab.Chew) 750 mg PO Q4H PRN PRN Reason: Heartburn Heparin Sodium (Porcine) (Heparin Sodium,Porcine 5,000 Unit/Ml Vial) 5,000 unit SUBCUT Q12H [facility] Lactated Ringer's (Lr) 1,000 mls @ 100 mls/hr IVCONT .Q10H [facility] Last Admin: 09/29/23 22:41 Dose: 100 mls/hr Documented By: SIS Acetaminophen (Ofirmev) 1,000 mg in 100 mls @ 400 mls/hr IV Q6H [facility] Last Infusion: 09/30/23 01:21 Dose: Infused Documented By: PEGGY Loratadine (Loratadine 10 Mg Tablet) 10 mg PO BEDTIME [facility] Last Admin: 09/29/23 20:22 Dose: 10 mg Documented By: SIS Melatonin (Melatonin 3 Mg Tablet) 6 mg PO BEDTIME PRN PRN Reason: Insomnia Morphine Sulfate (Morphine Sulfate 4 Mg/Ml Cartridge) 4 mg IVPUSH Q4H PRN; Protocol PRN Reason: Pain, Severe (Pain Scale 7-10) Omeprazole (Omeprazole 40 Mg Capsule.Dr) 40 mg PO DAILY@0630 [facility] Last Admin: 09/30/23 05:36 Dose: 40 mg Documented By: HO.ANTOIC Oxycodone HCl (Oxycodone Hcl Immed Release 5 Mg Tablet) 5 mg PO Q4H PRN PRN Reason: Pain, Moderate(Pain Scale 4-6) Last Admin: 09/30/23 05:36 Dose: 5 mg Documented By: PEGGY Pramipexole Dihydrochloride (Pramipexole Di-Hcl 0.25 Mg Tablet) 0.5 mg PO BEDTIME [facility] Last Admin: 09/29/23 20:22 Dose: 0.5 mg Documented By: SIS Sodium Chloride (0.9 % Sodium Chloride Flush 3 Ml Syringe) 3 ml IVFLUSH QSHIFT [facility] Last Admin: 09/30/23 01:04 Dose: 3 ml Documented By: PEGGY Venlafaxine HCl (Venlafaxine Hcl Er 75 Mg Cap.Er.24h) 225 mg PO BEDTIME [facility] Last Admin: 09/29/23 20:22 Dose: 225 mg Documented By: SIS <[facility] Last Filed: 09/30/23 07:03> Labs CBC & Chem 7: 09/30/23 06:03 09/30/23 06:03 <[facility] Last Filed: 09/30/23 07:03> Procedures Date of Service Date of Service: 09/30/23 <[facility] Last Filed: 09/30/23 07:03> 09/30/23 <Marielos Galvan PA-C - Last Filed: 09/30/23 07:54> 09/30/23 <Arden Van MD - Last Filed: 09/30/23 08:56> Progress Note: A&P Assessment and plan (1) Rectal prolapse: Status: Acute <[facility] Last Filed: 09/30/23 07:03> Assessment and Plan: Some postop pain Denies flatus Good urine output - clear Plan to DC Hurt today Pain management Ambulate Seems to be doing well postop Seen and examined independently <Arden Van MD - Last Filed: 09/30/23 08:56> (2) H/O of rectopexy: Status: Acute <[facility] Last Filed: 09/30/23 07:03> Assessment and Plan: Patient is s/p rectoplexy + sigmoid colectomy secondary to a history of rectal prolapse. Her pain is well controlled, she tolerating clear liquids and is passing gas. Consider advancing diet to full liquids. Continue current pain management Recommend continuing icing, ambulation and incentive spirometry <[facility] Last Filed: 09/30/23 07:03> Patient is s/p rectoplexy + sigmoid colectomy secondary to a history of rectal prolapse. Her pain is well controlled, she tolerating clear liquids and is passing gas. Consider advancing diet to full liquids. Continue current pain management Recommend continuing icing, ambulation and incentive spirometry POD #1 s/p Hand assisted laparoscopic sigmoid resection, with rectopexy, intraop flexible sigmoidoscopy. Overall doing well post op. Abd benign with clean/intact dressings and appropriate post op tenderness. Dc hurt. Dec IVF. Cont clear liquids for now until evidence of GI function. Increase activity, OOB, IS use. Pain control. <Marielos Galvan PA-C - Last Filed: 09/30/23 07:54> Time Spent With Patient Time: Total time managing care of this patient today ____ minutes. <[facility] Last Filed: 09/30/23 07:03> Quality Stroke Does the patient have a stroke diagnosis?: No <Marielos Galvan PA-C - Last Filed: 09/30/23 07:54> VTE Prior VTE?: No <Marielos Galvan PA-C - Last Filed: 09/30/23 07:54> VTE Risk Level:: Medical - moderate - high <[facility] Filed: 09/30/23 07:03> VTE Device Contraindication: N/A - Device Ordered <[facility] Last Filed: 09/30/23 07:03> VTE Drug Contraindication: N/A - Med Ordered <[facility] Filed: 09/30/23 07:03>
[2023-09-30 06:55] LABS: Basophils Percent Auto 0.1 % (0-2); Hematocrit 32.4 % (37.0-47.0); Hemoglobin 10.9 g/dl (12.0-16.0); Imm Gran Pct Auto 0.7 % (0.0-0.4); Lymphocytes Absolute Auto 1.4 X10*3/uL (1.2-4.9); Lymphocytes Percent Auto 10.1 % (20-40); Mean Corpuscular HGB Conc 33.6 g/dl (31.0-35.0); Mean Platelet Volume 11.2 fL (9.4-12.3); Monocytes Absolute Auto 1.5 X10*3/uL (0.1-1.2); Monocytes Percent Auto 10.8 % (2-11); Neutrophils Absolute Auto 10.9 x10*3/uL (2.0-8.3); Neutrophils Percent Auto 78.3 % (45-73); Platelet Count 297 X10*3/uL (160-400); Red Blood Count 3.52 X10*6/uL (4.20-5.50); Red Cell Distribution Width 14.2 % (11.0-16.0); White Blood Count 13.9 X10*3/uL (4.8-10.8)
[2023-09-30 07:15] LABS: Anion Gap 10 (12-20); Blood Urea Nitrogen 7 mg/dL (9-16); Calcium 8.1 mg/dL (8.4-10.2); Carbon Dioxide 25 mmol/L (22-29); Chloride 107 mmol/L (96-108); Creatinine Clr Calc Pharmacy 57.3; Estimated Glomerular Filt Rate > 60; Glucose Fasting 103 mg/dL (60-99); Potassium 3.7 mmol/L (3.3-5.1); Sodium 138 mmol/L (135-145)
[2023-09-30 07:27] VITALS: BP 142/68; PULSE 64; RESP 18; TEMP 36.6; O2SAT 95
[2023-09-30] MEDS: Lactated Ringers 1,000 ML 100 ML IVCONT (08:45)
[2023-09-30] MEDS: Heparin Sodium,Porcine 5,000 UNIT/ML VIAL 5000 UNIT SUBCUT ×2 (08:45→21:37)
--- NOTE | 2023-09-30 08:48 | MHC.CM.PN ---
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 Her son will drive her home at DC. HCP form completed and added to chart. PCP confirmed: Dr. Manning. DCP: home, self care. CM to follow for DC needs.
[2023-09-30] MEDS: HYDROmorphone HCl 0.5 MG/0.5 ML SYRINGE 0.25 MG IVPUSH (09:02)
--- NOTE | 2023-09-30 10:05 | HO.POSTANES ---
Post Anesthesia Evaluation Post Anesthesia Evaluation Date of Service: 09/29/23 Vital Signs: Vital Signs Temp Pulse Resp BP Pulse Ox O2 Del Method O2 Flow Rate 09/30/23 07:27 97.8 F 64 18 142/68 H 95 Nasal Cannula 1 09/30/23 03:39 98.0 F 72 16 131/62 95 Nasal Cannula 1 09/30/23 00:00 96.8 F 58 16 133/63 97 Nasal Cannula 1 Anesthesia: General Endotracheal-GETA Mental Status: Awake Pain Control: Satisfactory Nausea/Vomiting: None Hydration: Adequate Anesthesia-Related Issues: No Anes. Related Issues
--- NOTE | 2023-09-30 15:13 | PM.EVENT ---
Event Note Date of Service: 09/30/23 Event Note: Seen on afternoon rounds She says she has adequate pain control Has been ambulating short distances Able to void freely without catheter Looks well Stable vital signs No nausea or vomiting Await return of GI function has before advancing diet Time Spent With Patient Time: Total time managing care of this patient today ____ minutes.
[2023-09-30 16:00] VITALS: BP 118/64; PULSE 64; RESP 18; TEMP 36.6; O2SAT 93
[2023-09-30] MEDS: Loratadine 10 MG TABLET PO (19:55)
[2023-09-30] MEDS: Atorvastatin Calcium 10 MG TABLET PO (19:55)
[2023-09-30] MEDS: Venlafaxine HCl ER 75 MG CAP.ER.24H 225 MG PO (19:55)
[2023-09-30] MEDS: Pramipexole Di-HCL 0.25 MG TABLET 0.5 MG PO (19:55)
[2023-09-30] MEDS: Lactated Ringers 1,000 ML 60 ML IVCONT (21:42)
[2023-10-01] VITALS: BP 150/72; PULSE 67; RESP 17; TEMP 36.6; O2SAT 90
[2023-10-01] MEDS: ondansetron HCL 4 MG/2 ML VIAL IVPUSH (05:35)
[2023-10-01] MEDS: Omeprazole 40 MG CAPSULE.DR PO (05:35)
--- NOTE | 2023-10-01 06:44 | P.PNGS_ITS ---
Subjective Subjective Date of Service: 10/01/23 <[facility] Last Filed: 10/01/23 06:52> 10/01/23 <Marielos Galvan PA-C - Last Filed: 10/01/23 07:40> 10/01/23 <Arden Van MD - Last Filed: 10/01/23 08:12> Interval history: Patient reports her pain has improved from yesterday. Tolerating clear liquids without nausea or vomiting. Continues to pass gas but no BM. Navas catheter is out, no pain or burning with urination. Vitals stable. <[facility] Last Filed: 10/01/23 06:52> Physical Exam 2 Vital Signs: Vital Signs: Last Vital Signs Temp 97.9 F 10/01/23 00:00 Pulse 67 10/01/23 00:00 Resp 17 10/01/23 00:00 BP 150/72 H 10/01/23 00:00 Pulse Ox 90 L 10/01/23 00:00 O2 Del Method Room Air 10/01/23 00:00 O2 Flow Rate 1 09/30/23 07:27 BMI result Body Mass Index 23.9 <[facility] Last Filed: 10/01/23 06:52> Const: General: cooperative, healthy appearing and comfortable <[facility] Filed: 10/01/23 06:52> Orientation/consciousness: patient oriented x3 <[facility] Filed: 10/01/23 06:52> Chest: Chest palpation & inspection: normal inspection of the chest < [facility] Filed: 10/01/23 06:52> Resp: Effort & Inspection: normal respiratory effort and able to speak in complete sentences <[facility] Last Filed: 10/01/23 06:52> GI: Inspection: Yes normal to inspection, Yes incision (bandages clean, dry and intact.) and Yes other (Minimal bruising across abdomen.) <[facility] Filed: 10/01/23 06:52> Palpation (GI): Soft to palpation and Tenderness to palpation present (GI) (appropriate given surgery) <[facility] Last Filed: 10/01/23 06:52> Percussion: Yes normal to percussion <[facility] Last Filed: 10/01/23 06:52> Neuro: General: patient oriented x3 <[facility] Last Filed: 10/01/23 06:52> Objective Data Active Medications Atorvastatin Calcium (Atorvastatin Calcium 10 Mg Tablet) 10 mg PO BEDTIME [facility] Last Admin: 09/30/23 19:55 Dose: 10 mg Documented By: ANTONIA Calcium Carbonate (Calcium Carbonate 750 Mg Tab.Chew) 750 mg PO Q4H PRN PRN Reason: Heartburn Heparin Sodium (Porcine) (Heparin Sodium,Porcine 5,000 Unit/Ml Vial) 5,000 unit SUBCUT Q12H [facility] Last Admin: 09/30/23 21:37 Dose: 5,000 unit Documented By: ANTONIA Hydromorphone HCl (Hydromorphone Hcl 0.5 Mg/0.5 Ml Syringe) 0.25 mg IVPUSH Q3H PRN; Protocol PRN Reason: Pain, Severe (Pain Scale 7-10) Last Admin: 09/30/23 09:02 Dose: 0.25 mg Documented By: JHONY Lactated Ringer's (Lr) 1,000 mls @ 60 mls/hr IVCONT .[id number] [facility] Last Infusion: 09/30/23 21:53 Dose: 60 mls/hr Documented By: ANTONIA Acetaminophen (Ofirmev) 1,000 mg in 100 mls @ 400 mls/hr IV Q6H [facility] Last Admin: 10/01/23 02:23 Dose: Not Given Documented By: ANTONIA Non-Admin Reason: dose exceeded Loratadine (Loratadine 10 Mg Tablet) 10 mg PO BEDTIME [facility] Last Admin: 09/30/23 19:55 Dose: 10 mg Documented By: ANTONIA Melatonin (Melatonin 3 Mg Tablet) 6 mg PO BEDTIME PRN PRN Reason: Insomnia Omeprazole (Omeprazole 40 Mg Capsule.Dr) 40 mg PO DAILY@0630 [facility] Last Admin: 10/01/23 05:35 Dose: 40 mg Documented By: ANTONIA Ondansetron HCl (Ondansetron Hcl 4 Mg/2 Ml Vial) 4 mg IVPUSH Q8H PRN PRN Reason: Nausea and Vomiting Last Admin: 10/01/23 05:35 Dose: 4 mg Documented By: ANTONIA Oxycodone HCl (Oxycodone Hcl Immed Release 5 Mg Tablet) 5 mg PO Q4H PRN PRN Reason: Pain, Moderate(Pain Scale 4-6) Last Admin: 09/30/23 20:10 Dose: 5 mg Documented By: ANTONIA Pramipexole Dihydrochloride (Pramipexole Di-Hcl 0.25 Mg Tablet) 0.5 mg PO BEDTIME [facility] Last Admin: 09/30/23 19:55 Dose: 0.5 mg Documented By: ANTONIA Sodium Chloride (0.9 % Sodium Chloride Flush 3 Ml Syringe) 3 ml IVFLUSH QSHIFT [facility] Last Admin: 09/30/23 21:43 Dose: Not Given Documented By: ANTONIA Non-Admin Reason: IV Running Venlafaxine HCl (Venlafaxine Hcl Er 75 Mg Cap.Er.24h) 225 mg PO BEDTIME [facility] Last Admin: 09/30/23 19:55 Dose: 225 mg Documented By: ANTONIA <[facility] Last Filed: 10/01/23 06:52> Labs CBC & Chem 7: 09/30/23 06:03 09/30/23 06:03 <[facility] Filed: 10/01/23 06:52> Labs: Laboratory Results - last 24 hr 09/30/23 06:03 MCV 92.0 MCH 31.0 MCHC 33.6 RDW 14.2 Plt Count 297 MPV 11.2 Immature Gran % (Auto) 0.7 H Neut % (Auto) 78.3 H Lymph % (Auto) 10.1 L [place] % (Auto) 10.8 Eos % (Auto) 0.0 Baso % (Auto) 0.1 Lymph # (Auto) 1.4 [place] # (Auto) 1.5 H Eos # (Auto) 0.0 Baso # (Auto) 0.0 Abs Immat Gran (auto) 0.10 H Absolute Neuts (auto) 10.9 H Absolute Nucleated RBC 0.000 Nucleated RBC % (auto) 0.0 Anion Gap 10 L Estim Creat Clear Calc 57.3 Estimated GFR > 60 Fasting Glucose 103 H Calcium 8.1 L D <[facility] Filed: 10/01/23 06:52> Procedures Date of Service Date of Service: 10/01/23 <[facility] Filed: 10/01/23 06:52> 10/01/23 <Marielos Galvan PA-C - Last Filed: 10/01/23 07:40> 10/01/23 <Arden Van MD - Last Filed: 10/01/23 08:12> Progress Note: A&P Assessment and plan (1) H/O of rectopexy: Status: Acute <[facility] Last Filed: 10/01/23 06:52> Assessment and Plan: Says she feels well Adequate pain control Tolerating clear liquids well Denies flatus Voiding freely Abdomen soft and benign Incisions clean Await full return of GI function Ambulate Seen and examined independently <Arden Van MD - Last Filed: 10/01/23 08:12> (2) Rectal prolapse: Status: Acute <[facility] Filed: 10/01/23 06:52> Assessment and Plan: Patient is POD #2 s/p hand assisted laparoscopic sigmoid resection and rectopexy. Overall doing well, pain is well managed. Bandages are clean, dry and intact. Appropriate tenderness given postoperative state Continue clear liquids until BM Recommend continue with ambulation, icing the incision and incentive spirometry <[facility] Filed: 10/01/23 06:52> Patient is POD #2 s/p hand assisted laparoscopic sigmoid resection and rectopexy. Overall doing well, pain is well managed. Bandages are clean, dry and intact. Appropriate tenderness given postoperative state Continue clear liquids until BM Recommend continue with ambulation, icing the incision and incentive spirometry Patient is POD #2 s/p s/p hand assisted laparoscopic sigmoid resection and rectopexy. Nausea this morning and no evidence of GI function, abd moderately distended. Will continue clear liquids for now. Continue OOB/ambulation. Await return of GI function. Patient comfortable with plan. O2 low 90s, cont incentive, supplemental O2 as needed to maintain sat >92. <Marielos Galvan PA-C - Last Filed: 10/01/23 07:40> Time Spent With Patient Time: Total time managing care of this patient today ____ minutes. <[facility] [place] [place] Filed: 10/01/23 06:52> Quality Stroke Does the patient have a stroke diagnosis?: No <[facility] Filed: 10/01/23 06:52> VTE Prior VTE?: No <[facility] Filed: 10/01/23 06:52> VTE Risk Level:: Medical - moderate - high <[facility] Filed: 10/01/23 06:52> VTE Device Contraindication: N/A - Device Ordered <[facility] Filed: 10/01/23 06:52> VTE Drug Contraindication: N/A - Med Ordered <[facility] Filed: 10/01/23 06:52>
[2023-10-01] MEDS: Acetaminophen 1,000 MG/100 ML PIGGYBACK 400 MG IV ×3 (07:33→20:33)
[2023-10-01] MEDS: 0.9 % Sodium Chloride Flush 3 ML SYRINGE IVFLUSH ×2 (07:35→14:16)
[2023-10-01 07:40] VITALS: BP 137/70; PULSE 73; RESP 18; TEMP 36.8; O2SAT 94
[2023-10-01] MEDS: Heparin Sodium,Porcine 5,000 UNIT/ML VIAL 5000 UNIT SUBCUT ×2 (10:56→22:10)
[2023-10-01] MEDS: oxyCODONE HCl Immed Release 5 MG TABLET PO (11:00)
--- NOTE | 2023-10-01 11:46 | PC.NURSE ---
patient reported passing large amt of flatus
--- NOTE | 2023-10-01 14:07 | PM.EVENT ---
Event Note Date of Service: 10/02/23 Event Note: Seen on afternoon rounds She feels well States she had been passing flatus today Denies significant pain Abdomen is soft Clinically looks well Okay to try on regular food tonight If she continues to do well, possible DC home tomorrow Time Spent With Patient Time: Total time managing care of this patient today ____ minutes.
[2023-10-01] MEDS: Lactated Ringers 1,000 ML 60 ML IVCONT (14:24)
[2023-10-01 15:39] VITALS: BP 130/74; PULSE 66; RESP 18; TEMP 36.3; O2SAT 92
[2023-10-01] MEDS: Atorvastatin Calcium 10 MG TABLET PO (20:33)
[2023-10-01] MEDS: Loratadine 10 MG TABLET PO (20:33)
[2023-10-01] MEDS: Pramipexole Di-HCL 0.25 MG TABLET 0.5 MG PO (20:33)
[2023-10-01] MEDS: Venlafaxine HCl ER 75 MG CAP.ER.24H 225 MG PO (20:33)
[2023-10-02] VITALS: BP 128/74; PULSE 70; RESP 16; TEMP 36.6; O2SAT 91
[2023-10-02] MEDS: Acetaminophen 1,000 MG/100 ML PIGGYBACK 400 MG IV ×2 (02:12→07:24)
[2023-10-02 04:26] VITALS: BP 141/80; PULSE 72; RESP 16; TEMP 36.7; O2SAT 92
[2023-10-02] MEDS: oxyCODONE HCl Immed Release 5 MG TABLET PO (05:28)
[2023-10-02] MEDS: Omeprazole 40 MG CAPSULE.DR PO (05:30)
[2023-10-02] MEDS: Docusate Sodium 100 MG CAPSULE PO (07:24)
[2023-10-02 07:25] VITALS: BP 168/79; PULSE 66; RESP 16; TEMP 36.1; O2SAT 95
[2023-10-02] MEDS: Lactated Ringers 1,000 ML 60 ML IVCONT (07:26)
[2023-10-02] MEDS: 0.9 % Sodium Chloride Flush 3 ML SYRINGE IVFLUSH (07:28)
--- NOTE | 2023-10-02 08:26 | P.PNGS_ITS ---
Subjective Subjective Date of Service: 10/02/23 <Marielos Galvan PA-C - Last Filed: 10/02/23 08:30> 10/02/23 <Arden Van MD - Last Filed: 10/02/23 10:00> Interval history: Tolerated solid food last night without any nausea or vomiting. Passing flatus. Slight increase in incisional pain this am. OOB and ambulating. < Marielos Galvan PA-C - Last Filed: 10/02/23 08:30> Physical Exam 2 Vital Signs: Vital Signs: Last Vital Signs Temp 97.0 F 10/02/23 07:25 Pulse 66 10/02/23 07:25 Resp 16 10/02/23 07:25 BP 168/79 H 10/02/23 07:25 Pulse Ox 95 10/02/23 07:25 O2 Del Method Room Air 10/02/23 07:25 O2 Flow Rate 1 09/30/23 07:27 BMI result Body Mass Index 23.9 <VIOLET Mckenna Last Filed: 10/02/23 08:30> Const: General: comfortable, no acute distress and alert <Marielos Galvan PA-C - Last Filed: 10/02/23 08:30> Orientation/consciousness: patient oriented x3 <VIOLET Mckenna Last Filed: 10/02/23 08:30> Resp: Effort & Inspection: normal respiratory effort <VIOLET Mckenna Last Filed: 10/02/23 08:30> GI: Inspection: Yes distended (slightly, soft) and Yes incision (clean) < Marielos Galvan PA-C - Last Filed: 10/02/23 08:30> Palpation (GI): Soft to palpation, Tenderness to palpation present (GI) (mild incisional) and no guarding <VIOLET Mckenna Last Filed: 10/02/23 08:30> Skin: General skin exam: no rashes or lesions noted <VIOLET Mckenna Last Filed: 10/02/23 08:30> Neuro: General: patient oriented x3 <VIOLET Mckenna Last Filed: 10/02/23 08:30> Objective Data Active Medications Atorvastatin Calcium (Atorvastatin Calcium 10 Mg Tablet) 10 mg PO BEDTIME [facility] Last Admin: 10/01/23 20:33 Dose: 10 mg Documented By: JENNIFER Calcium Carbonate (Calcium Carbonate 750 Mg Tab.Chew) 750 mg PO Q4H PRN PRN Reason: Heartburn Docusate Sodium (Docusate Sodium 100 Mg Capsule) 100 mg PO BID [facility] Last Admin: 10/02/23 07:24 Dose: 100 mg Documented By: JOCELYNE Heparin Sodium (Porcine) (Heparin Sodium,Porcine 5,000 Unit/Ml Vial) 5,000 unit SUBCUT Q12H [facility] Last Admin: 10/01/23 22:10 Dose: 5,000 unit Documented By: JENNIFER Hydromorphone HCl (Hydromorphone Hcl 0.5 Mg/0.5 Ml Syringe) 0.25 mg IVPUSH Q3H PRN; Protocol PRN Reason: Pain, Severe (Pain Scale 7-10) Last Admin: 09/30/23 09:02 Dose: 0.25 mg Documented By: JHONY Lactated Ringer's (Lr) 1,000 mls @ 60 mls/hr IVCONT .[id number] [facility] Last Admin: 10/02/23 07:26 Dose: 60 mls/hr Documented By: JOCELYNE Acetaminophen (Ofirmev) 1,000 mg in 100 mls @ 400 mls/hr IV Q6H [facility] Last Infusion: 10/02/23 07:39 Dose: Infused Documented By: JOCELYNE Loratadine (Loratadine 10 Mg Tablet) 10 mg PO BEDTIME [facility] Last Admin: 10/01/23 20:33 Dose: 10 mg Documented By: JENNIFER Melatonin (Melatonin 3 Mg Tablet) 6 mg PO BEDTIME PRN PRN Reason: Insomnia Omeprazole (Omeprazole 40 Mg Capsule.Dr) 40 mg PO DAILY@0630 [facility] Last Admin: 10/02/23 05:30 Dose: 40 mg Documented By: JENNIFER Ondansetron HCl (Ondansetron Hcl 4 Mg/2 Ml Vial) 4 mg IVPUSH Q8H PRN PRN Reason: Nausea and Vomiting Last Admin: 10/01/23 05:35 Dose: 4 mg Documented By: ANTONIA Oxycodone HCl (Oxycodone Hcl Immed Release 5 Mg Tablet) 5 mg PO Q4H PRN PRN Reason: Pain, Moderate(Pain Scale 4-6) Last Admin: 10/02/23 05:28 Dose: 5 mg Documented By: JENNIFER Pramipexole Dihydrochloride (Pramipexole Di-Hcl 0.25 Mg Tablet) 0.5 mg PO BEDTIME [facility] Last Admin: 10/01/23 20:33 Dose: 0.5 mg Documented By: JENNIFER Sodium Chloride (0.9 % Sodium Chloride Flush 3 Ml Syringe) 3 ml IVFLUSH QSHIFT [facility] Last Admin: 10/02/23 07:28 Dose: 3 ml Documented By: JOCELYNE Venlafaxine HCl (Venlafaxine Hcl Er 75 Mg Cap.Er.24h) 225 mg PO BEDTIME [facility] Last Admin: 10/01/23 20:33 Dose: 225 mg Documented By: JENNIFER <Marielos Galvan PA-C - Last Filed: 10/02/23 08:30> Labs CBC & Chem 7: 09/30/23 06:03 09/30/23 06:03 <Marielos Galvan PA-C - Last Filed: 10/02/23 08:30> Procedures Date of Service Date of Service: 10/02/23 <Marielos Galvan PA-C - Last Filed: 10/02/23 08:30> 10/02/23 <Arden Van MD - Last Filed: 10/02/23 10:00> Progress Note: A&P Assessment and plan (1) H/O of rectopexy: Status: Acute <Marielos Galvan PA-C - Last Filed: 10/02/23 08:30> Assessment and Plan: Feels well this morning Passing flatus Tolerating regular diet No BM yet Abdomen is soft and benign Clinically looks well DC home once able to have bowel movement Seen and examined independently <Arden Van MD - Last Filed: 10/02/23 10:00> Assessment and Plan: Patient is POD #3 s/p s/p hand assisted laparoscopic sigmoid resection and rectopexy. Doing well, tolerating diet. VSS. Abd exam benign with clean incisions. Home hopefully tomorrow if remains comfortable, moving bowels. Patient comfortable with plan. <Marielos Galvan PA-C - Last Filed: 10/02/23 08:30> Time Spent With Patient Time: Total time managing care of this patient today ____ minutes. <Marielos Galvan PA-C - Last Filed: 10/02/23 08:30> Quality Stroke Does the patient have a stroke diagnosis?: No <Marielos Galvan PA-C - Last Filed: 10/02/23 08:30> VTE Prior VTE?: No <Marielos Galvan PA-C - Last Filed: 10/02/23 08:30> VTE Risk Level:: Medical - moderate - high <VIOLET Mckenna Last Filed: 10/02/23 08:30> VTE Device Contraindication: N/A - Device Ordered <Marielos Galvan PA-C - Last Filed: 10/02/23 08:30> VTE Drug Contraindication: N/A - Med Ordered <Marielos Galvan PA-C - Last Filed: 10/02/23 08:30>
--- NOTE | 2023-10-02 09:22 | PM.DS ---
DS: Providers Provider Date of Service: 10/02/23 Date of admission: 09/29/23 07:20 Date of discharge: 10/02/23 [facility] Attending physician on admission: Arden Van Attending physician on discharge: Arden Van DS: Diagnosis Discharge Diagnosis (1) H/O of rectopexy: Status: Acute DS: Summary Hospital Course Hospital Course: HPI AT ADMISSION: The patient is a 78 year old female with a long history of rectal prolapse which has been worsening. She had been uncomfortable with ?sitting on a ball? outside the rectum all the time. The prolapse itself was seen in the office on examination and this was easily reproduced. She had very lax sphincter tone. She understood the technique of the planned procedure and now presents for rectopexy. HOSPITAL COURSE: On 09/29/23, hand assisted laparoscopic sigmoid resection, with rectopexy, intraop flexible sigmoidoscopy was performed by Dr. Van without complication. The patient tolerated the procedure well. She was admitted for recovery and observation post operatively. She had an uncomplicated recovery course. Her hurt was removed on POD #1. She was ambulated and her activity increased. She was continued on clear liquids until she began to pass flatus on POD #2. She was the advanced to a solid diet. Her abdomen was benign with clean incisions. On the day of discharge, she felt well with good pain control on oral analgesics. She was tolerating a solid diet and was passing consistent flatus. She ambulating without difficulty. Her abdomen was soft with appropriate post op tenderness and clean incisions. She felt ready for discharge. She was discharged to home on POD #3, 10/02/23 in stable condition. She is to follow up in the office in 2 weeks. Status at Discharge Functional status at discharge: independent ambulation Overall status at discharge: patient is progressing back to baseline Time Attestation Discharge Coordination Time (in mins): 35 Quality: Safe Use of Opioids Does Pt have an Active Cancer Diagnosis on the Problem List?: No Quality: Stroke Does the patient have a stroke diagnosis?: No Physical Exam Vital Signs: Vital Signs: Last Vital Signs Temp 97.0 F 10/02/23 07:25 Pulse 66 10/02/23 07:25 Resp 16 10/02/23 07:25 BP 168/79 H 10/02/23 07:25 Pulse Ox 95 10/02/23 07:25 O2 Del Method Room Air 10/02/23 07:25 O2 Flow Rate 1 09/30/23 07:27 BMI result Body Mass Index 23.9 Const: General: comfortable, no acute distress and alert Orientation/consciousness: patient oriented x3 Resp: Effort & Inspection: normal respiratory effort GI: Inspection: No distended and Yes incision (clean) Palpation (GI): Soft to palpation, Tenderness to palpation present (GI) (mild incisional) and no guarding Percussion: Yes normal to percussion Skin: General skin exam: no rashes or lesions noted Neuro: General: patient oriented x3 and moves all extremities DS: Data Data Completed and Pending Completed studies during hospitalization [Text1]: 09/29/23 09:20 Surgical [PTH] Routine A. Colon, sigmoid, segmental resection: Benign colonic mucosa and wall with congestion and muscular hypertrophy; no evidence of malignancy. B. Colon, anastomotic donuts : Two annular portions of benign colonic mucosa and wall consistent with anastomotic rings Discharge Plan Discharge Anticipated Discharge Date/Time: 10/02/23 14:29 Patient Disposition: Home, Self-Care Discharge Diagnosis: rectal prolapse Referrals: Thad Manning FNP- [Primary Care Provider] - 1 Week Arden Van MD [Physician] - 2 Weeks Discharge Medications: New docusate sodium [Colace] 100 mg capsule 100 mg PO BID Qty: 60 2RF oxycodone-acetaminophen [Percocet] 5-325 mg tablet 1 tab PO Q4-6H PRN (Reason: pain) Qty: 25 0RF Rx Instructions: Partial Fill upon patient request. Metamucil 3.4 gram/5.4 gram powder 1 tbsp PO DAILY Qty: 660 2RF Rx Instructions: mix into at least 8 oz of water or juice before administering Continued cetirizine 10 mg Tablet 10 mg PO BEDTIME methylphenidate HCl 18 mg tablet extended release 24hr 18 mg PO DAILY multivitamin [Daily Multi-Vitamin] Tablet 1 tab PO DAILY calcium carbonate-vitamin D3 1,000 mg(2,500 mg)-800 unit tablet 1 tab PO DAILY venlafaxine [Effexor XR] 75 mg capsule,extended release 24hr 225 mg PO BEDTIME naproxen 500 mg tablet 500 mg PO BID PRN (Reason: Pain) pramipexole 0.25 mg tablet 0.5 mg PO BEDTIME atorvastatin 10 mg tablet 10 mg PO BEDTIME omeprazole 40 mg capsule,delayed release(DR/EC) 40 mg PO DAILY@0630 Discharge Orders: Discharge Order (Routine); Ordered 10/02/23 Ordered By: Arden Van Diet: Advance to usual diet Activity on Discharge: No heavy lifting Stand Alone Forms: Patient Portal Discharge page Print Language: Finnish Activity Restrictions/Additional Instructions: If the incision area is tender, you may apply an ice pack for short intervals (No more than 20 minutes on, followed by at least 20 minutes off). Do not apply heat. Do not use creams, lotions, or topical antibiotics unless instructed to do so by your surgeon. These can cause infection or allergic reaction. No lifting more than 20 lbs Okay to shower No strenuous activities Call the office for follow-up in 2 weeks - with Dr. Van Call Your Doctor If: -Your temperature exceeds 101.5? F -You experience excessive pain or swelling -You have an unexpected reaction to medication -You have excessive bleeding -You experience continued vomiting/nausea -Your incision begins to separate -Your incision shows signs of infection such as increased redness, swelling, excessive pain, drainage (light blood or clear fluid is normal) or heat Care Plan Goals: Returned to baseline Health Concerns: History of rectal prolapse Postop pain Plan of Treatment: Oral pain meds Stool softeners Fiber supplements Assessment: Doing well Discharge Date/Time: 10/02/23 15:37
[2023-10-02] MEDS: Heparin Sodium,Porcine 5,000 UNIT/ML VIAL 5000 UNIT SUBCUT (11:13)
--- NOTE | 2023-10-02 12:07 | MHC.CM.PN ---
Per MD rounds patient is not cleared for discharge. DP Home selfcare. Patient will arrange for a ride home.
--- NOTE | 2023-10-02 14:27 | PM.EVENT ---
Event Note Date of Service: 10/02/23 Event Note: seen on PM rounds continues to feel well tolerating diet passing good amounts of flatus has been ambulating wants to go home she feels it will be a while before she can have BMs abd soft, benign will dc home on Metamucil, Colace dc instructions reinforced Time Spent With Patient Time: Total time managing care of this patient today ____ minutes.
--- NOTE | 2023-10-02 14:37 | MHC.CM.PN ---
Patient is discharged to home self care. She has arranged for a ride home.
== END 2023-10-02 15:37 | disposition home or self-care (01) | DRG 331 ==
LOC: HO.SSSA 07:25 → HO.S3 11:24
PROVIDERS: Nurse Practitioner; Physician Assistant Surgical; Admitting Provider Surgery; PCP Internal Medicine; Visit Provider Surgery
PROC: 0DTE0ZZ Resection of Large Intestine, Open Approach (ICD-10-PCS; principal; 2023-09-29 07:30)
DX: K62.3 Rectal prolapse (principal); G89.18 Other acute postprocedural pain; Z79.899 Other long term (current) drug therapy
CPT/HCPCS: 36415; 80048; 85025; 85027; 86850; 86900; 86901; 88304; 88307; 93005; C1758; C9145; J0131; J0665; J1100; J1170; J1644; J2250; J2405; J2704; J2795; J3010; J7120

== ENCOUNTER → 2023-09-29 07:20 | Outpatient (BNV) | payer MEDICARE, SELFPAY | PROVIDERS: Admitting Provider Surgery; PCP Nurse Practitioner Family; Visit Provider Surgery | DX: K62.3 Rectal prolapse (principal) | CPT/HCPCS: 45402; 99024; 99499 ==

== ENCOUNTER 2023-10-14 09:56 | Outpatient (AMB) | payer MEDICARE, SELFPAY ==
--- NOTE | 2023-10-14 09:56 | A.OFFVIS_ITS ---
Vital Signs 10/14/23 09:58 Height 5 ft 3 in Intake Visit Reasons: S/P KELLY lap. rectopexy, poss. sigmoid resection Intake Note: This patient presents for post-op status post Hand assisted laparoscopic sigmoid resection, with rectopexy, intraop flexible sigmoidoscopy. Pt c/o; reports no complaints at this time. Surgery DOS: 09/29/2023 [employer] Belt [employer] Required: No Accompanied by: Self / Same As Patient Allergies No Known Allergies [No Known Allergies*] Allergy (Verified 10/14/23 10:05) HPI HPI S/P KELLY lap. rectopexy, poss. sigmoid resection: Details: She underwent rectopexy and sigmoid resection for severe rectal prolapse last September 29, 2023. She was this shows on postop day 3. She says she has been doing well since that time. She says that she is happy with the outcome and says that the surgery has changed her life. She says she has had no prolapse anymore. She denies GI complaints. [facility] Medical History (Updated 10/14/23 @ 10:12 by Arden Van MD) Rectal prolapse Elevated BUN Carpal tunnel syndrome of left wrist Carpal tunnel syndrome of right wrist Arthritis Hiatal hernia GERD (gastroesophageal reflux disease) Ankle fracture Bilateral hand numbness RLS (restless legs syndrome) High cholesterol Depression Hypertension Surgical History H/O resection of large bowel (~09/29/23) Hx of bilateral cataract extraction H/O colonoscopy (~08/21/23) History of esophagogastroduodenoscopy (EGD) History of surgery on lower extremity History of carpal tunnel surgery of left wrist History of left knee replacement History of total right knee replacement (~11/2018) Family History Brother Melanoma of face Father Colon cancer Social History Household Members: Family Household Members Other:: son Housing: House Are you a primary home care nurse to a significant other at home: No Do you presently have visiting nurse or other home services: No Alcohol intake: current Alcohol intake frequency: holidays/special occasions only Patient Tobacco Use Status: Never used Tobacco service: No Current occupational status: employed 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 She is doing very well. She says her severe rectal prolapse has resolved. She was advised to avoid lifting more than 20 lb for at least 2 more weeks. I also advised her to avoid straining and constipation and continue taking fiber supplements All incisions are well healed. She can therefore follow up on a p.r.n. basis. Coding Level of Care Code Global (30290) Diagnoses Rectal prolapse K62.3
== END 2023-10-14 10:10 | disposition home or self-care (01) ==
PROVIDERS: PCP Internal Medicine; Visit Provider Surgery
DX: K62.3 Rectal prolapse (principal)
CPT/HCPCS: 99024

== ENCOUNTER → 2023-10-14 09:56 | Outpatient (BNVA) | payer MEDICARE, SELFPAY | PROVIDERS: PCP Internal Medicine; Visit Provider Surgery | DX: Z48.815 Encounter for surgical aftercare following surgery on the digestive system (principal); Z87.2 Personal history of diseases of the skin and subcutaneous tissue | CPT/HCPCS: 99212 ==

== ENCOUNTER 2023-10-22 11:07 | Outpatient (AMB) | payer MEDICARE, SELFPAY ==
--- NOTE | 2023-10-22 11:11 | MHC.OFFVIS ---
Vital Signs 10/22/23 11:11 Height 5 ft 3 in Intake Visit Reasons: wound check, poss infection Intake Note: This patient presents for wound check for possible infection. Pt c/o; reports incisions is infected , reports no nausea, vomiting, chills or fever. Contact Manager Required: No Accompanied by: Self / Same As Patient Allergies No Known Allergies [No Known Allergies*] Allergy (Verified 10/22/23 11:12) HPI HPI wound check, poss infection: Details: She had noticed an area of redness on her incision starting yesterday. She describes some burning as well in the area. She continues to have good bowel movements. She says that she has had no prolapse anymore since she had the rectopexy and sigmoid resection. She has good oral intake. She feels well overall. [facility] Medical History Rectal prolapse Elevated BUN Carpal tunnel syndrome of left wrist Carpal tunnel syndrome of right wrist Arthritis Hiatal hernia GERD (gastroesophageal reflux disease) Ankle fracture Bilateral hand numbness RLS (restless legs syndrome) High cholesterol Depression Hypertension Surgical History H/O resection of large bowel (~09/29/23) Hx of bilateral cataract extraction H/O colonoscopy (~08/21/23) History of esophagogastroduodenoscopy (EGD) History of surgery on lower extremity History of carpal tunnel surgery of left wrist History of left knee replacement History of total right knee replacement (~11/2018) Family History Brother Melanoma of face Father Colon cancer Social History Household Members: Family Household Members Other:: son Housing: House Are you a primary primary care nurse practitioner to a significant other at home: No Do you presently have visiting nurse or other home services: No Alcohol intake: current Alcohol intake frequency: holidays/special occasions only Patient Tobacco Use Status: Never used Tobacco service: No Current occupational status: employed 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 Review of Systems Const Denies chills and Denies fever(s) Card Denies chest pain, Denies dyspnea and Denies dyspnea on exertion Resp Denies cough, Denies dyspnea and Denies dyspnea on exertion GI Denies hematochezia and Denies change in bowel habits Denies hematuria Musc Denies back pain and Denies limited range of motion Neuro Denies focal weakness and Denies convulsions Psych Denies depression and Denies mood swings Physical Exam Const Other: Looks well General: comfortable and no acute distress Resp Effort & Inspection: normal respiratory effort GI Other: Incision in the midline is well healed but there is an area of redness in the middle, no fluctuance Assessment & Plan Assessment & Plan (1) Rectal prolapse: Code(s): K62.3 - Rectal prolapse Category: Medical Plan: Status post resection and rectopexy. She continues to do very well. However, she has noticed this area of redness on the incision starting yesterday. There is no fluctuance. We will prescribe her Keflex for this. I told her to return to the office if this does not improve by next week. She is also to do warm soaks to the area. I also instructed her to continue taking fiber supplements. Coding Level of Care Code Global (72023) Diagnoses Rectal prolapse K62.3
== END 2023-10-22 11:16 | disposition home or self-care (01) ==
PROVIDERS: PCP Internal Medicine; Visit Provider Surgery
DX: K62.3 Rectal prolapse (principal)
CPT/HCPCS: 99024

== ENCOUNTER → 2023-10-22 11:07 | Outpatient (BNVA) | payer MEDICARE, SELFPAY | PROVIDERS: PCP Internal Medicine; Visit Provider Surgery | DX: Z09 Encounter for follow-up examination after completed treatment for conditions other than malignant neoplasm (principal); Z87.19 Personal history of other diseases of the digestive system; Z98.890 Other specified postprocedural states | CPT/HCPCS: 99212 ==

== ENCOUNTER 2023-12-24 08:13 | Outpatient (REF) | payer MEDICARE, SELFPAY ==
--- NOTE | ~2023-12-24 | MM_ITS ---
EXAMINATION: MM SCREENING DIGITAL BREAST TOMOSYNTHESIS, BILATERAL CLINICAL INFORMATION: Screening. Asymptomatic. COMPARISON: Mammography: Comparison is made with available priors TECHNIQUE: Digital breast mammography with tomosynthesis is performed in both the craniocaudal and mediolateral oblique views along with computer-aided detection (CAD). FINDINGS: The breasts are heterogeneously dense, which may obscure small masses (ACR BI-RADS breast composition Category c). There are no significant masses, abnormal calcifications, or other abnormalities. MM/MM tomosynthesis screening BI IMPRESSION: No mammographic evidence of malignancy. ASSESSMENT: BI-RADS BI-RADS 1 - Negative RECOMMENDATION: Routine annual mammography screening. 1 year F/U This examination should not preclude the clinical evaluation of a suspicious palpable abnormality. This patient's information was entered into a reminder system with a target due date for their next mammogram. Electronically signed by: Kiara Rashid DO 01/01/2024 04:07 PM LOI
== END 2023-12-24 08:14 | disposition home or self-care (01) ==
LOC: HO.MAMMO 08:13
PROVIDERS: PCP Internal Medicine; Visit Provider Internal Medicine
DX: Z12.31 Encounter for screening mammogram for malignant neoplasm of breast (principal)
CPT/HCPCS: 77063; 77067

== ENCOUNTER → 2023-12-24 08:15 | Outpatient (BNV) | payer MEDICARE, SELFPAY | PROVIDERS: PCP Internal Medicine; Visit Provider Internal Medicine | DX: Z12.31 Encounter for screening mammogram for malignant neoplasm of breast (principal) | CPT/HCPCS: 77063; 77067 ==

== ENCOUNTER 2024-04-21 10:29 | Outpatient (REF) | payer MEDICARE, SELFPAY ==
[2024-04-21 10:32] LABS: MANUAL DIFF FLAG NO
[2024-04-21 11:24] LABS: Basophils Percent Auto 0.5 % (0-2); Eosinophils Absolute Auto 0.4 X10*3/uL (0.0-0.4); Eosinophils Percent Auto 6.3 % (0-4); Hematocrit 37.3 % (37.0-47.0); Hemoglobin 11.9 g/dl (12.0-16.0); Imm Gran Abs Auto 0.02 X10*3/uL (0.00-0.03); Imm Gran Pct Auto 0.4 % (0.0-0.4); Lymphocytes Absolute Auto 1.7 X10*3/uL (1.2-4.9); Lymphocytes Percent Auto 30.4 % (20-40); Mean Corpuscular HGB Conc 31.9 g/dl (31.0-35.0); Mean Platelet Volume 10.9 fL (9.4-12.3); Monocytes Absolute Auto 0.7 X10*3/uL (0.1-1.2); Monocytes Percent Auto 13.2 % (2-11); Neutrophils Absolute Auto 2.7 x10*3/uL (2.0-8.3); Neutrophils Percent Auto 49.2 % (45-73); Platelet Count 357 X10*3/uL (160-400); Red Blood Count 3.97 X10*6/uL (4.20-5.50); Red Cell Distribution Width 13.6 % (11.0-16.0); White Blood Count 5.5 X10*3/uL (4.8-10.8)
[2024-04-21 11:25] LABS: Appearance Urine Clear; Color Urine Yellow; Glucose Urine UA Negative (Negative); Leukocyte Esterase Urine Moderate (2+) (Negative); Nitrite Urine Negative (Negative); PH 5.5 (5.0-9.0); UMIC TRIGGER UACC YES; Urine Blood Negative (Negative); Urine Ketones Negative (Negative); Urine Protein Negative (Neg-Trace)
[2024-04-21 11:33] LABS: Bacteria Urine None Seen (None Seen); Hyaline Casts Urine 0-2 /LPF (0-2); RBC Urine 0-2 /HPF (0-2); Squamous Epithelial Cell Urine 0-2 /HPF (0-2); UACC Culture Trigger YES; WBC Urine 21-50 /HPF (0-5)
[2024-04-21 12:08] LABS: Alanine Aminotransferase 20 U/L (0-31); Albumin Level 3.6 g/dL (3.5-5.0); Alkaline Phosphatase 55 U/L (39-117); Anion Gap 11 (12-20); Aspartate Amino Transferase 29 U/L (5-31); Bilirubin Total 0.6 mg/dL (0.0-1.0); Blood Urea Nitrogen 21 mg/dL (9-16); Calcium 8.8 mg/dL (8.4-10.2); Carbon Dioxide 26 mmol/L (22-29); Chloride 109 mmol/L (96-108); Cholesterol 147 mg/dL (<200); Estimated Glomerular Filt Rate > 60; Glucose Fasting 84 mg/dL (60-99); HDL Cholesterol 64 mg/dL (>40); LDL Cholesterol Calculated 74 mg/dL (<100); Sodium 142 mmol/L (135-145); Total Protein 6.8 g/dL (6.5-8.0); Triglycerides 45 mg/dL (<150)
--- OUTSIDE RECORDS SUMMARY | 2024-04-21 12:31 | XMS_ITS ---
Author Organization Sebastian Boland MD Address [address] [place], [place] [phone] Care Team Providers Care Junior Recruiter Name Role Phone Sebastian Boland Primary Care Provider Results Component Value Reference Range Notes Complete Blood Count Auto Di ff (Not yet reviewed by provider) Interpretation: Performing Lab:[facility], [address] [place] [phone] Notes/Report: White Blood Count 5.5 4.8-10.8 X10*3/uL [...] NRBC Abs Auto 0.000 0.0-0.012 X10*3/uL Comprehensive [place]. Panel Fa st (Not yet reviewed by provider) Interpretation: Performing Lab:[facility], [address] [place] [phone] Notes/Report: Sodium 142 135-145 mmol/L Potassium 4.0 [...] 3.5-5.0 g/dL Alkaline Phosphatase 55 39-117 U/L UA ClnCatch+Micro w/rflx Cul t (Not yet reviewed by provider) Interpretation: Performing Lab:[facility], [address] [place] [phone] Notes/Report: Urine, Clean Catch Color Urine Yellow Appearance Urine Clear PH 5.5 5.0-9.0 Glucose Urine UA Negative Negative mg/dL Urine Blood Negative Negative Specific [place] - Urine 1.020 1.005-1.025 Urine Protein Negative Neg-Trace mg/dL Urine Ketones Negative Negative mg/dL Nitrite Urine Negative Negative Leukocyte Esterase Urine Moderate (2+) Negative RBC Urine 0-2 0-2 /HPF WBC Urine 21-50 0-5 /HPF Squamous Epithelial Cell Urine 0-2 0-2 /HPF Bacteria Urine None Seen None Seen Hyaline Casts Urine 0-2 0-2 /LPF Lipid Panel Reviewed date:04/21/2024 12:20:19 PM Interpretation: Performing Lab:[facility], [address] [place] [phone] Notes/Report: Triglycerides 45 <150 mg/dL Desirable Triglyceride: [...] low results in patients with liver disease. REASON FOR VISIT FASTING LABS Encounters Encounter Location Date Provider Diagnosis Sebastian Boland MD [address] [place], [place] [phone] 04/21/2024 Sebastian Boland Blood tests for rout ine general physical examination Z00.00 and Hypercholesteremia E78.00 Assessments Encounter Date Diagnosis (ICD Code) Assessment Notes Treatment Notes Treatment Clinical Notes Section Notes 04/21/2024 Blood tests for routine general physical examination (ICD-10 - Z00.00) 04/21/2024 Hypercholesteremia (ICD-10 - E78.00) Plan Of Treatment Pending Test Test Name Order Date Complete Blood Count Auto Diff 5 Comprehensive [place]. Panel Fast 5 UA ClnCatch+Micro w/rflx Cult 04/21/2024 Next Appt Details Provider Name:Sebastian gaxiola, 05/16/2024 01:45:00 PM, [address], [address], [place], [place], [phone], Progress Notes * Katelynn CID LDOB:[birth year] (78 yo F)Acc No.[id number]:04/21/2024 Progress Note Patient:?Katelynn CID Provider:?Sebastian Boland MD :1945???Age:78 Y???Sex:Female D ate:04/21/2024 Address:[address] [place], [place] [phone] Subjective: * Chief Complaints: * ???1. FASTING LABS. * Medical History:? Objective: * Vitals:? Assessment: * Assessment: 1.?Blood tests for routine g eneral physical examination - Z00.00 (Primary)???2.?Hypercholesteremia - E78.00??? Plan: * Treatment: 2.?Hypercholesteremia?LAB: Complete Blood Count Auto Diff (Collection Date & Time - 04/21/2024 07:45 AM) ?LAB: Comprehensive [place]. Panel Fast (Collection Date & Time - 04/21/2024 07:45 AM) ?LAB: UA ClnCatch+Micro w/rflx Cult (Collection Date & Time - 04/21/2024 07:45 AM) ?LAB: Lipid Panel (Collection Date & Time - 04/21/2024 07:45 AM) * * The named appointment provid er may or may not be the originator of this progress note, and it is not deemed complete until electronically signed by the appointment provider. Sign off status: Pending * Provider:?Sebastian Boland MD Date:?0 04/21/2024 Generated for Po doll/Gurvinder/eTransmitting on:?04/21/2024 12:31 PM EST
--- OUTSIDE RECORDS SUMMARY | 2024-04-21 12:32 | XMS_ITS ---
Author Organization Sebastian Boland MD Address [address] [place] [phone] Care Team Providers Care Construction Engineering Manager Name Role Phone Sebastian Boland Primary Care Provider [phone] REASON FOR VISIT REFILL CONCERTA Medications Medication SIG (Take, Route, Fr equency, Duration) Notes Start Date End Date Status Concerta 27 MG 1 tablet in the morn ing Orally Once a day for 30 days 03/31/2024 Active Encounters Encounter Location Date Provider Diagnosis Sebastian Boland MD [address] [place] [phone] 03/31/2024 Sebastian Boland Attention deficit hyperactivity disorder (ADHD), combined type F90.2 Assessments Encounter Date Diagnosis (ICD Code) Assessment Notes Treatment Notes Treatment Clinical Notes Section Notes 03/31/2024 Attention deficit hyperactivity disorder (ADHD), combined type (ICD-10 - F90.2) Plan Of Treatment Medication Medication Name Sig Start Date Stop Date Notes Concerta 27 MG 1 tablet in the morn ing Orally Once a day for 30 days 03/31/2024 Next Appt Details Provider Name:Sebastian gaxiola, 05/16/2024 01:45:00 PM, [address] [place] [address], [address], [place], [place], [phone], Progress Notes * Katelynn CID LDOB:[birth year] (78 yo F)Acc No.[id number]:03/31/2024 Patient:?Katelynn CID :1945???Age:78 Y???Sex:Female Address:[address] [place], [place] [address], [phone] * Refills? Refill Concerta Tablet Extended Release, 27 MG, Orally, 30, 1 tablet in the morning, Once a day, 30 days, Refills=0 * true * Date:? Generated for Po doll/Gurvinder/Enedinaitting on:?04/21/2024 12:32 PM EST
--- OUTSIDE RECORDS SUMMARY | 2024-04-21 12:32 | XMS_ITS ---
Author Organization Sebastian Boland MD Address [address] [place] [phone] Care Team Providers Care Marble Helper Name Role Phone Sebastian Boland Primary Care Provider REASON FOR VISIT RF Concerta Medications Medication SIG (Take, Route, Fr equency, Duration) Notes Start Date End Date Status Concerta 27 MG 1 tablet in the morn ing Orally Once a day for 30 days 02/29/2024 Active Encounters Encounter Location Date Provider Diagnosis Sebastian Boland MD [address] [place] [phone] 02/29/2024 Sebastian Boland Attention deficit hyperactivity disorder (ADHD), combined type F90.2 Assessments Encounter Date Diagnosis (ICD Code) Assessment Notes Treatment Notes Treatment Clinical Notes Section Notes 02/29/2024 Attention deficit hyperactivity disorder (ADHD), combined type (ICD-10 - F90.2) Plan Of Treatment Medication Medication Name Sig Start Date Stop Date Notes Concerta 27 MG 1 tablet in the morn ing Orally Once a day for 30 days 02/29/2024 Next Appt Details Provider Name:Sebastian gaxiola, 05/16/2024 01:45:00 PM, [address] [place] [address], [address], [place], [place], [phone], Progress Notes * Katelynn CID LDOB:[birth year] (78 yo F)Acc No.[id number]:02/29/2024 Patient:?Katelynn Cid :1945???Age:78 Y???Sex:Female Address:[address] [place], [place] [address], [phone] * Refills? Refill Concerta Tablet Extended Release, 27 MG, Orally, 30, 1 tablet in the morning, Once a day, 30 days, Refills=0 * true * Date:? Generated for Po doll/Gurvinder/Enedinaitting on:?04/21/2024 12:31 PM EST
== END 2024-04-21 10:30 | disposition home or self-care (01) ==
LOC: HO.LNP 10:29
PROVIDERS: Visit Provider Internal Medicine
DX: Z00.00 Encounter for general adult medical examination without abnormal findings (principal); E78.00 Pure hypercholesterolemia, unspecified
CPT/HCPCS: 80053; 80061; 81001; 85025; 87086

== ENCOUNTER 2024-11-04 07:30 | Outpatient (REF) | payer MEDICARE, SELFPAY ==
[2024-11-04 12:19] LABS: Alanine Aminotransferase 19 U/L (0-31); Albumin Level 3.8 g/dL (3.5-5.0); Alkaline Phosphatase 52 U/L (39-117); Aspartate Amino Transferase 33 U/L (5-31); Cholesterol 158 mg/dL (<200); HDL Cholesterol 65 mg/dL (>40); Total Protein 6.6 g/dL (6.5-8.0); Triglycerides 54 mg/dL (<150)
[2024-11-04 13:04] LABS: Reflex LDLD? No
== END 2024-11-04 07:31 | disposition home or self-care (01) ==
LOC: HO.LNP 07:30
PROVIDERS: Visit Provider Internal Medicine
DX: E78.00 Pure hypercholesterolemia, unspecified (principal)
CPT/HCPCS: 80061; 80076

== ENCOUNTER 2024-12-29 07:52 | Outpatient (REF) | payer MEDICARE, SELFPAY ==
--- OUTSIDE RECORDS SUMMARY | 2024-04-21 02:45 | XMS_ITS ---
Author Organization Sebastian Boland MD Address [address] [place], [place] [phone] Care Team Providers Care Transfer Driver Name Role Phone Sebastian Boland Primary Care Provider Results Component Value Reference Range Notes Complete Blood Count Auto Di ff Reviewed date:04/21/2024 04:53:15 PM Interpretation: Performing Lab:[facility], [address] [place] [phone] Notes/Report: White Blood Count 5.5 4.8-10.8 X10*3/uL [...] NRBC Abs Auto 0.000 0.0-0.012 X10*3/uL Comprehensive [place]. Panel Fa st Reviewed date:04/21/2024 12:55:34 PM Interpretation: Performing Lab:[facility], [address] [place] [phone] Notes/Report: Sodium 142 135-145 mmol/L Potassium 4.0 [...] Panel Reviewed date:04/21/2024 12:20:19 PM Interpretation: Performing Lab:[facility], [address] [place] [phone] Notes/Report: Triglycerides 45 <150 mg/dL Desirable Triglyceride: [...] t Reviewed date:04/21/2024 04:53:44 PM Interpretation: Performing Lab:[facility], [address] [place] [phone] Notes/Report: Urine, Clean Catch Color Urine Yellow Appearance Urine Clear PH 5.5 5.0-9.0 Glucose Urine UA Negative Negative mg/dL Urine Blood Negative Negative Specific [place] - Urine 1.020 1.005-1.025 Urine Protein Negative [...] Date Provider Diagnosis Sebastian Boland MD [address] [place], [place] [phone] 04/21/2024 Sebastian Boland Blood tests for rout [...] 07:00:00 AM, [address], [address], [place], [place], [phone], Provider Name:Sebastian Gomez ier, 05/26/2025 01:00:00 PM, [address], [address], [place], [place], [phone], Progress Notes * Katelynn CID LDOB:[birth year] (79 yo F)Acc No.[id number]:04/21/2024 Progress Note Patient: Katelynn VEE Provider: Ziggy Boland MD :1945 A ge:78 Y S ex:Female Date:04/21/2024 Address:[address] [place], [place] [phone] Subjective: * Chief Complaints: * 1 . FASTING LABS. * Medical History: Objective: * Vitals: Assessment: * Assessment: 1. B lood tests for routine general physical examination - Z00.00 (Primary) 2 .?Hypercholesteremia - E78.00 Plan: * Treatment: 2. H ypercholesteremia L AB: Complete Blood Count Auto Diff (Collection Date & Time - 04/21/2024 07:45 AM) L AB: Comprehensive [place]. Panel Fast (Collection Date & Time - [...] 0 04/21/2024 Generated for Po doll/Gurvinder/Adali on: 02/29/2024 07:55 AM EST
--- OUTSIDE RECORDS SUMMARY | 2024-05-05 09:42 | XMS_ITS ---
Author Organization Sebastian Boland MD Address [address] [place] [phone] Care Team Providers Care Turret Lathe Machinist Name Role Phone Sebastian Boland Primary Care Provider [phone] REASON FOR VISIT med refill Medications Medication SIG (Take, Route, Fr equency, Duration) Notes Start Date End Date Status Concerta 27 MG 1 tablet in the morn ing Orally Once a day for 30 days 05/05/2024 Active Encounters Encounter Location Date Provider Diagnosis Sebastian Boland MD [address] [place] [phone] 05/05/2024 Sebastian Boland Attention deficit hyperactivity disorder (ADHD), combined type F90.2 Assessments Encounter Date Diagnosis (ICD Code) Assessment Notes Treatment Notes Treatment Clinical Notes Section Notes 05/05/2024 Attention deficit hyperactivity disorder (ADHD), combined type (ICD-10 - F90.2) Plan Of Treatment Medication Medication Name Sig Start Date Stop Date Notes Concerta 27 MG 1 tablet in the morn ing Orally Once a day for 30 days 05/05/2024 Next Appt Details Provider Name:Sebastian gaxiola, 05/18/2025 07:00:00 AM, [address], [address], [place], [place], [phone], Provider Name:Sebastian gaxiola, 05/26/2025 01:00:00 PM, [address], [address], [place], [place], [phone], Progress Notes * Katelynn CID LDOB:[birth year] (79 yo F)Acc No.[id number]:05/05/2024 Patient: Katelynn VEE :1945 A ge:79 Y S ex:Female Address:[address] [place] [address], [phone] * Refills Refill Concerta Tablet Extended Release, 27 MG, Orally, 30, 1 tablet in the morning, Once a day, 30 days, Refills=0 * true * Date: Generated for Po doll/Gurvinder/Deidrasmitting on: 02/29/2024 07:56 AM EST
--- OUTSIDE RECORDS SUMMARY | 2024-05-16 08:45 | XMS_ITS ---
Author Organization Sebastian Boland MD Address [address] [place], [place] [id number] Care Team Providers Care Line Up Examiner Name Role Phone Sebastian Boland Primary Care Provider [phone] Allergies No Known Allergies REASON FOR VISIT review labs, Very upset with issues regarding her daughter Medications Medication SIG (Take, Route, Frequency, Duration) Notes Start Date End Date Status Venlafaxine HCl ER 75 MG 1 capsule with food Orally with the 150 mg capsule for 90 days Active Percocet 5-325 MG 0.5 tablet as needed Orally HS Not-Taking Ventolin HFA 108 (90 Base) MCG/ACT 2 puffs as needed Inhalation every 4 hrs for 30 days 03/20/2016 Not-Taking Clobetasol Propionate 0.05 % 1 application to affected area Externally Twice a day for 10 day(s) 02/24/2017 Not-Taking Naproxen 500 MG TAKE ONE TABLET BY MOUTH TWICE A DAY for 30 Active Concerta 27 MG 1 tablet in the morning Orally Once a day 05/05/2024 Active Omeprazole 40 MG TAKE ONE CAPSULE BY MOUTH EVERY DAY Active Pramipexole Dihydrochloride 0.25 MG TAKE TWO TABLETS BY MOUTH AT BEDTIME for 90 Active Atorvastatin Calcium 10 MG TAKE ONE TABL ET BY MOUTH EVERY DAY Active Calcium 1000 + D 1000-800 MG-UNIT 1 tablet with a meal Orally Once a day Active Social History Tobacco Use: Social History Observation Description Date Details (start date - stop date) Never Smoker NA - NA Tobacco Use/Smoking Question Answer Notes Patient is [...] Never (0 point) Points 2 Interpretation Negative Vital Signs Blood pressure systolic 144 mm Hg 05/17/19 25 Blood pressure diastolic 78 mm Hg 025 Height 63 in 05/16/2024 Weight 137 lbs 05/16/2024 BMI 24.27 kg/m2 05/16/2024 weight is up 6 pounds since 10-13-23 Encounters Encounter Location Date Provider Diagnosis Sebastian Boland MD [address] [place] [address] [place] [phone] 05/16/2024 Sebastian Boland Annual physical exam Z00.00 ; Essential hypertension I10 ; Attention deficit hyperactivity disorder (ADHD), combined type F90.2 ; Hypercholesteremia E78.00 ; Gastroesophageal reflux disease with esophagitis without hemorrhage K21.00 and Depression screening Z13.31 Assessments Encounter Date Diagnosis (ICD Code) Assessment Notes Treatment Notes Treatment Clinical Notes Section Notes 05/16/2024 Annual physical exam (ICD-10 - Z00.00) labs reviewed and discussed with patient 05/16/2024 Essential hypertensi on (ICD-10 - I10) doing well, will continue current regiment 05/16/2024 Attention deficit hyperactivity disorder (ADHD), combined type (ICD-10 - F90.2) doing well on meds, will continue current regiment 05/16/2024 Hypercholesteremia (ICD-10 - E78.00) stable, will continue current regiment 05/16/2024 Gastroesophageal reflux disease with esophagitis without hemorrhage (ICD-10 - K21.00) doing well, will continue curent regiment 05/16/2024 Depression screening (ICD-10 - Z13.31) negative screen Plan Of Treatment Medication Medication Name Sig Start Date Stop Date Notes Concerta 27 MG 1 tablet in the morn ing Orally Once a day 05/05/2024 Omeprazole 40 MG TAKE ONE CAPSULE BY MOUTH EVERY DAY Atorvastatin Calcium 10 MG TAKE ONE TABL ET BY MOUTH EVERY DAY Treatment Notes Assessment Notes Annual physical exam labs reviewed and d iscussed with patient Essential hypertension doing well, will continue current regiment Attention deficit hyperactiv ity disorder (ADHD), combined type doing well on meds, will continue current regiment Hypercholesteremia stable, will continu e current regiment Gastroesophageal reflux dise ase with esophagitis without hemorrhage doing well, will continue curent regiment Depression screening negative screen Next Appt Details Follow Up: 6 Months, Reason: Provider Name:Sebastian gaxiola, 05/18/2025 07:00:00 AM, [address] [place] [address], [address] [place] [address], [phone], Provider Name:Sebastian gaxiola, 05/26/2025 01:00:00 PM, [address] [place] [address], [address], [place], [place], [phone], Progress Notes * Katelynn CID LDOB:[birth year] (79 yo F)Acc No.[id number]:05/16/2024 Patient: Katelynn VEE Provider: Ziggy Boland MD :1945 A ge:79 Y S ex:Female Date:05/16/2024 Address:[address] [place] [address] [place] [id number] Subjective: * Chief Complaints: * Petrona buchananw labsVery upset with issues regarding her daughter * HPI: D epression Screening: PHQ-9 L ittle interest or pleasure in doing things N ot at all, F eeling down, depressed, or hopeless N ot at all, T rouble falling or staying asleep, or sleeping too much N ot at all, F eeling tired or having little energy N ot at all, P oor appetite or overeating N ot at all, F eeling bad about yourself or that you are a failure, or have let yourself or your family down N ot at all, T rouble concentrating on things, such as reading the newspaper or watching television N ot at all, M oving or speaking so slowly that other people could have noticed; or the opposite, being so fidgety or restless that you have been moving around a lot more than usual N ot at all, T houghts that you would be better off or of hurting yourself in some way N ot at all, T otal Score 0 . I nterpretation and Intervention D epression Screening Findings N egative, F ollow-Up for Depression : review of PHQ-9 found negative result, no follow-up needed, P atient Lifestyle Goals P atient wants to maintain a health emotional balance, B arriers N o specific barriers, is motivated to feel better, works at this everyday, S elf-Managment Goals E xercise at least 3xs per week. C ommunication Needs: Communication Needs D oes the patient have a hearing impairment N o, D oes the patient have a vision impairment? Y es, I f yes, what is the vision impairment? G lasses, D oes the patient have a cognition impairment? N o. F all Risk: History H ave you had any falls with injury in the past year? N o, H ave you had two or more falls in the past year? N o. S NICOLAS Questions: SDOH Questions I n the past year have you been worried about losing housing? N o, I n the past year have you or any family members you live with been unable to get any of the following when it was really needed? Check all that apply: N one. S ymptom(s): patient is a 79 yo female here for annual visit with review of recent labs and follow up of chronic issues. * ROS: G eneral/Constitutional: Change in appetite d enies. C hills d enies. F ever d enies. O phthalmologic: Blurred vision d enies. D ischarge d enies. P ain d enies. E NT: Decreased hearing d enies. S ore throat d enies.?Swollen glands d enies. E ndocrine: Cold intolerance d enies. E xcessive thirst d enies. H eat intolerance d enies. W eight loss d enies. R espiratory: Cough d enies. S hortness of breath at rest d enies. S hortness of breath with exertion d enies. W heezing d enies. C ardiovascular: Chest pain at rest d enies. C hest pain with exertion?denies. I rregular heartbeat d enies. S hortness of breath d enies. ? G astrointestinal: Abdominal pain d enies. C hange in bowel habits d enies. D iarrhea d enies. N ausea d enies. R ectal bleeding d enies. V omiting d enies . G enitourinary: Blood in urine d enies. D ifficulty urinating d enies. F requent urination d enies. U rinary incontinence D enies. M usculoskeletal: Painful joints d enies. W eakness d enies. ? S kin: Dry skin d enies. I tching d enies. D enies?Mole(s), changes in moles, new moles or any lesions of concern. D enies P hotosensitivity. R albaro d enies. N eurologic: Dizziness d enies. F ainting d enies. H eadache?denies. * Medical History: * Surgical History: * Hospitalization/Major Diagno stic Procedure: * Family History: F ather: 78 yrs. M other: 95 yrs, natural causes. 3 brother(s) . 2 son(s) , 1 daughter(s) . . father's side mental illness no substance abuse n the family, No pertinent family medical history, Denies mental health/substance abuse family history, Denies mental health/substance abuse family history. * Social History: T obacco Use: T obacco Use/Smoking P atient is a n onsmoker, A dditional Findings: Tobacco Non-User C urrent non-smoker, currently using no form of tobacco. D rugs/Alcohol: A lcohol Screen D id you have a drink containing alcohol in the past year? Y es, H ow often did you have a drink containing alcohol in the past year? 2 to 4 times a month (2 points), H ow many drinks did you have on a typical day when you were drinking in the past year? 1 or 2 drinks (0 point), H ow often did you have 6 or more drinks on one occasion in the past year? N ever (0 point), P oints 2 , I nterpretation N egative. M iscellaneous: C affeine: yes, frequency:, 2-3 cups per day. Children: yes. Community involvements: yes. Exercise: no. Home smoke detector use: yes. Housing: owning. Living with: family. Occupation: weeks/months/years, retired. Pets: cats: dogs:4 cats. Travel outside of the [place]: no. * Medications: T akingCalcium 1000 + D 1000-800 MG-UNIT Tablet 1 tablet with a meal Orally Once a day Atorvastatin Calcium 10 MG Tablet TAKE ONE TABLET BY MOUTH EVERY DAY Pramipexole Dihydrochloride 0.25 MG Tablet TAKE TWO TABLETS BY MOUTH AT BEDTIME Omeprazole 40 MG Capsule Delayed Release TAKE ONE CAPSULE BY MOUTH EVERY DAY Venlafaxine HCl ER 75 MG Capsule Extended Release 24 Hour 1 capsule with food Orally with the 150 mg capsule Naproxen 500 MG Tablet TAKE ONE TABLET BY MOUTH TWICE A DAY Concerta 27 MG Tablet Extended Release 1 tablet in the morning Orally Once a day Taking Calcium 1000 + D 1000-800 MG-UNIT Tablet 1 tablet with a meal Orally Once a day Taking Atorvastatin Calcium 10 MG Tablet TAKE ONE TABLET BY MOUTH EVERY DAY Taking Pramipexole Dihydrochloride 0.25 MG Tablet TAKE TWO TABLETS BY MOUTH AT BEDTIME Taking Omeprazole 40 MG Capsule Delayed Release TAKE ONE CAPSULE BY MOUTH EVERY DAY Taking Venlafaxine HCl ER 75 MG Capsule Extended Release 24 Hour 1 capsule with food Orally with the 150 mg capsule Taking Naproxen 500 MG Tablet TAKE ONE TABLET BY MOUTH TWICE A DAY Taking Concerta 27 MG Tablet Extended Release 1 tablet in the morning Orally Once a day Not-Taking/PRNClobetasol Propionate 0.05 % Ointment 1 application to affected area Externally Twice a day Percocet 5-325 MG Tablet 0.5 tablet as needed Orally HS Ventolin HFA 108 (90 Base) MCG/ACT Aerosol Solution 2 puffs as needed Inhalation every 4 hrs Medication List reviewed and reconciled with the patientNot- Taking/PRN Clobetasol Propionate 0.05 % Ointment 1 application to affected area Externally Twice a day Not-Taking/PRN Percocet 5-325 MG Tablet 0.5 tablet as needed Orally HS Not-Taking/PRN Ventolin HFA 108 (90 Base) MCG/ACT Aerosol Solution 2 puffs as needed Inhalation every 4 hrs Medication List reviewed and reconciled with the patient * Allergies: N .K.D.A.yes[Allergies Verified] Objective: * Vitals: H t: 63, Wt: 137, BMI:24.27, BP:144/78, Wt-k.14. weight is up 6 pounds since 10-13-23. * P ast Orders: L ab:Comprehensive [place]. Panel Fast (Order Date - 04/21/2024) (Collection Date & Time - 04/21/2024 07:45 AM) Value Reference Range Sodium 142 135-145 - mmol/L Bilirubin Total 0.6 0.0-1.0 - mg/dL Aspartate Amino Transferase 29 5-31 - U/L Alanine Aminotransferase 20 0-31 - U/L Total Protein 6.8 6.5-8.0 - g/dL Albumin Level 3.6 3.5-5.0 - g/dL Alkaline Phosphatase 55 39-117 - U/L Potassium 4.0 3.3-5.1 - mmol/L Chloride 109 H 96-108 - mmol/L Carbon Dioxide 26 22-29 - mmol/L Anion Gap 11 L 12-20 - Blood Urea Nitrogen 21 H 9-16 - mg/dL Creatinine 0.71 0.5-1.4 - mg/dL Estimated Glomerular Filt Rate > 60 - Glucose Fasting 84 60-99 - mg/dL Calcium 8.8 8.4-10.2 - mg/dL L ab:Lipid Panel (Order Date - 04/21/2024) (Collection Date & Time - 04/21/2024 07:45 AM) Value Reference Range Triglycerides 45 <150 - mg/dL Cholesterol 147 <200 - mg/dL LDL Cholesterol Calculated 74 <100 - mg/dL HDL Cholesterol 64 >40 - mg/dL L ab:UA ClnCatch+Micro w/rflx Cult (Order Date - 04/21/2024) (Collection Date & Time - 04/21/2024 07:45 AM) Value Reference Range Color Urine Yellow - Appearance Urine Clear - PH 5.5 5.0-9.0 - Glucose Urine UA Negative Negative - mg/dL Urine Blood Negative Negative - Specific [place] - Urine 1.020 1.005-1.025 - Urine Protein Negative Neg-Trace - mg/dL Urine Ketones Negative Negative - mg/dL Nitrite Urine Negative Negative - Leukocyte Esterase Urine Moderate (2+) A Negative - RBC Urine 0-2 0-2 - /HPF WBC Urine 21-50 A 0-5 - /HPF Squamous Epithelial Cell Urine 0-2 0-2 - /HP F Bacteria Urine None Seen None Seen - Hyaline Casts Urine 0-2 0-2 - /LPF L ab:Urine Culture (Order Date - 04/21/2024) (Collection Date & Time - 04/21/2024) Value Reference Range Urine Culture < 10,000 cfu/ml - L ab:Complete Blood Count Auto Diff (Order Date - 04/21/2024) (Collection Date & Time - 04/21/2024 07:45 AM) Value Reference Range White Blood Count 5.5 4.8-10.8 - X10*3/uL Red Blood Count 3.97 L 4.20-5.50 - X10*6/uL Hemoglobin 11.9 L 12.0-16.0 - g/dl Hematocrit 37.3 37.0-47.0 - % Mean Corpuscular Volume 94.0 80.0-98.0 - fL Mean Corpuscular Hemoglobin 30.0 27.0-33.0 - pg Mean Corpuscular HGB Conc 31.9 31.0-35.0 - g/ dl Red Cell Distribution Width 13.6 11.0-16.0 - % Platelet Count 357 160-400 - X10*3/uL Mean Platelet Volume 10.9 9.4-12.3 - fL Neutrophils Percent Auto 49.2 45-73 - % Imm Gran Pct Auto 0.4 0.0-0.4 - % Lymphocytes Percent Auto 30.4 20-40 - % Monocytes Percent Auto 13.2 H 2-11 - % Eosinophils Percent Auto 6.3 H 0-4 - % Basophils Percent Auto 0.5 0-2 - % NRBC Pct Auto 0.0 0.0-0.2 - /100WBC Neutrophils Absolute Auto 2.7 2.0-8.3 - x10* 3/uL Imm Gran Abs Auto 0.02 0.00-0.03 - X10*3/uL Lymphocytes Absolute Auto 1.7 1.2-4.9 - X10* 3/uL Monocytes Absolute Auto 0.7 0.1-1.2 - X10*3/ uL Eosinophils Absolute Auto 0.4 0.0-0.4 - X10* 3/uL Basophils Absolute Auto 0.0 0.0-0.2 - X10*3/ uL NRBC Abs Auto 0.000 0.0-0.012 - X10*3/uL * Examination: G eneral Examination: GENERAL APPEARANCE: w ell developed, well nourished, in no acute distress. HEAD: n ormocephalic, atraumatic. EYES: p upils equal, round, reactive to light and accommodation, sclera non-icteric. EARS: n ormal. ORAL CAVITY: m ucosa moist. THROAT: c lear. NECK/THYROID: n geovanna supple, full range of motion, no cervical lymphadenopathy, no bruits. SKIN: w arm and dry, no suspicious lesions. HEART: r egular rate and rhythm, S1, S2 normal, no murmurs.? LUNGS: c lear to auscultation bilaterally. BREASTS: N o mass, no lump. ABDOMEN: s oft, nontender, nondistended, bowel sounds present, normal, no organomegaly , no masses palpable. RECTAL EXAM: d eclined. FEMALE GENITOURINARY: n ot done. EXTREMITIES: n o clubbing, cyanosis, or edema. NEUROLOGIC: n onfocal, motor strength normal upper and lower extremities, sensory exam intact. Assessment: * Assessment: 1. A nnual physical exam - Z00.00 (Primary) 2 . E ssential hypertension - I10 3 . A ttention deficit hyperactivity disorder (ADHD), combined type - F90.2? 4. H ypercholesteremia - E78.00 5 . G astroesophageal reflux disease with esophagitis without hemorrhage - K21.00 6 . D epression screening - Z13.31 Plan: * Treatment: 2. E ssential hypertension Notes: doing well, will continue current regiment 3. A ttention deficit hyperactivity disorder (ADHD), combined type Continue Concerta Tablet Extended Release, 27 MG, 1 tablet in the morning, Orally, Once a day. Notes: doing well on meds, will continue current regiment 4. H ypercholesteremia Continue Atorvastatin Calcium Tablet, 10 MG, TAKE ONE TABLET BY MOUTH EVERY DAY. Notes: stable, will continue current regiment 5. G astroesophageal reflux disease with esophagitis without hemorrhage Continue Omeprazole Capsule Delayed Release, 40 MG, TAKE ONE CAPSULE BY MOUTH EVERY DAY. Notes: doing well, will continue curent regiment 6. D epression screening Notes: negative screen * Procedure Codes: * Follow Up: 6 Months * * Sign off status: Completed true * Provider: Ziggy Boland MD Date: 0 05/16/2024 Generated for Po doll/Gurvinder/Adali on: 1 02/29/2024 07:55 AM EST History and Physical Notes * HPI (History of Present Illness) Category Sub-Category Detail Notes Category Not es Symptom(s) patient is a 79 yo female here for annual visit with review of recent labs and follow up of chronic issues. Depression Screening PHQ-9 Little inte rest or pleasure in doing things: Not at all Feeling down, depressed, or hopeless: No t at all Trouble falling or staying asleep, or sl eeping too much: Not at all Feeling tired or having little energy: N ot at all Poor appetite or overeating: Not at all Feeling bad about yourself o r that you are a failure, or have let yourself or your family down: Not at all Trouble concentrating on thi ngs, such as reading the newspaper or watching television: Not at all Moving or speaking so slowly that other people could have noticed; or the opposite, being so fidgety or restless that you have been moving around a lot more than usual: Not at all Thoughts that you would be b lit off or of hurting yourself in some way: Not at all Total Score: 0 Interpretation and Intervention Depression Scree maria d Findings: Negative Follow-Up for Depression: : review of PH Q-9 found negative result, no follow-up needed Patient Lifestyle Goals: Patient wants t o maintain a health emotional balance Barriers: No specific barriers , is motivated to feel better, works at this everyday Self-Managment Goals: Exercise at least 3xs per week SDOH Questions SDOH Questions In the past year have you been worried about losing housing?: No In the past year have you or any family members you live with been unable to get any of the following when it was really needed? Check all that apply:: None Fall Risk History Have you had any falls with injury i n the past year?: No Have you had two or more falls in the year?: No Communication Needs Communication Needs Does the patient have a hearing impairment: No Does the patient have a vision impairmen t?: Yes If yes, what is the vision impairment?: Glasses Does the patient have a cognition impair ment?: No Examination Category Sub-Category Detail Notes Category Not es General Examination GENERAL APPEARANCE: well dev eloped, well nourished, in no acute distress HEAD: normocephalic, atrau matic EYES: pupils equal, round, reactive to light and accommodation, sclera non-icteric EARS: normal THROAT: clear NECK/THYROID: neck supple, full ra nge of motion, no cervical lymphadenopathy, no bruits HEART: regular rate and rhy thm, S1, S2 normal, no murmurs LUNGS: clear to auscultatio n bilaterally ABDOMEN: soft, nontender, non distended, bowel sounds present, normal, no organomegaly , no masses palpable NEUROLOGIC: nonfocal, motor stre ngth normal upper and lower extremities, sensory exam intact SKIN: warm and dry, no jojo picious lesions EXTREMITIES: no clubbing, cyanosi s, or edema BREASTS: No mass, no lump RECTAL EXAM: declined FEMALE GENITOURINARY: not done ORAL CAVITY: mucosa moist
--- OUTSIDE RECORDS SUMMARY | 2024-06-10 04:33 | XMS_ITS ---
Author Organization Sebastian Boland MD Address [address] [place] [phone] Care Team Providers Care Varnisher Apprentice Name Role Phone Sebastian Boland Primary Care Provider [phone] Medications Medication SIG (Take, Route, Fr equency, Duration) Notes Start Date End Date Status Concerta 27 MG 1 tablet in the morn ing Orally Once a day for 30 days 06/10/2024 Active Encounters Encounter Location Date Provider Diagnosis Sebastian Boland MD [address] [place] [address] Drive [address] [place] [phone] 06/10/2024 Sebastian Boland Attention deficit hyperactivity disorder (ADHD), combined type F90.2 Assessments Encounter Date Diagnosis (ICD Code) Assessment Notes Treatment Notes Treatment Clinical Notes Section Notes 06/10/2024 Attention deficit hyperactivity disorder (ADHD), combined type (ICD-10 - F90.2) Plan Of Treatment Medication Medication Name Sig Start Date Stop Date Notes Concerta 27 MG 1 tablet in the morn ing Orally Once a day for 30 days 06/10/2024 Next Appt Details Provider Name:Sebastian gaxiola, 05/18/2025 07:00:00 AM, [address], [address], [place], [phone], Provider Name:Sebastian Yulia Jason gaxiola, 05/26/2025 01:00:00 PM, [address], [address], [place], [place], [phone], Progress Notes * CHETKatelynn Barrera LDOB:[birth year] (79 yo F)Acc No.[id number]:06/10/2024 Patient: Katelynn VEE :1945 A ge:79 Y S ex:Female Address:[address] [place] [address] [place], [id number] * Refills Refill Concerta Tablet Extended Release, 27 MG, Orally, 30 Tablet, 1 tablet in the morning, Once a day, 30 days, Refills=0 * true * Date: Generated for Po doll/Gurvinder/Enedinaitting on: 02/29/2024 07:55 AM EST
--- OUTSIDE RECORDS SUMMARY | 2024-07-21 10:11 | XMS_ITS ---
Author Organization Sebastian Boland MD Address [address] [place] [phone] Care Team Providers Care Wireless Operator Name Role Phone Sebastian Boland Primary Care Provider REASON FOR VISIT RF Concerta 27mg Medications Medication SIG (Take, Route, Fr equency, Duration) Notes Start Date End Date Status Concerta 27 MG 1 tablet in the morn ing Orally Once a day for 30 days 07/21/2024 Active Encounters Encounter Location Date Provider Diagnosis Sebastian Boland MD [address] [place] [phone] 07/21/2024 Sebastian Boland Attention deficit hyperactivity disorder (ADHD), combined type F90.2 Assessments Encounter Date Diagnosis (ICD Code) Assessment Notes Treatment Notes Treatment Clinical Notes Section Notes 07/21/2024 Attention deficit hyperactivity disorder (ADHD), combined type (ICD-10 - F90.2) Plan Of Treatment Medication Medication Name Sig Start Date Stop Date Notes Concerta 27 MG 1 tablet in the morn ing Orally Once a day for 30 days 07/21/2024 Next Appt Details Provider Name:Sebastian gaxiola, 05/18/2025 07:00:00 AM, [address], [address], [place], [place], [phone], Provider Name:Sebastian Yulia Jason gaxiola, 05/26/2025 01:00:00 PM, [address], [address], [place], [place], [phone], Progress Notes * Katelynn CID LDOB:[birth year] (79 yo F)Acc No.[id number]:07/21/2024 Patient: Katelynn VEE :1945 A ge:79 Y S ex:Female Address:[address] [place] [address], [phone] * Refills Refill Concerta Tablet Extended Release, 27 MG, Orally, 30 Tablet, 1 tablet in the morning, Once a day, 30 days, Refills=0 * true * Date: Generated for oP doll/Gurvinder/Enedinaitting on: 02/29/2024 07:55 AM EST
--- OUTSIDE RECORDS SUMMARY | 2024-08-21 12:51 | XMS_ITS ---
Author Organization Sebastian Boland MD Address [address] [place] [phone] Care Team Providers Care Training Designer Name Role Phone Sebastian Boland Primary Care Provider REASON FOR VISIT New Refill Request Medications Medication SIG (Take, Route, Fr equency, Duration) Notes Start Date End Date Status Concerta 27 MG 1 tablet in the morn ing Orally Once a day for 30 days 08/22/2024 Active Encounters Encounter Location Date Provider Diagnosis Sebastian Boland MD [address] [place] [phone] 08/21/2024 Sebasitan Boland Attention deficit hyperactivity disorder (ADHD), combined type F90.2 Assessments Encounter Date Diagnosis (ICD Code) Assessment Notes Treatment Notes Treatment Clinical Notes Section Notes 08/21/2024 Attention deficit hyperactivity disorder (ADHD), combined type (ICD-10 - F90.2) Plan Of Treatment Medication Medication Name Sig Start Date Stop Date Notes Concerta 27 MG 1 tablet in the morn ing Orally Once a day for 30 days 08/22/2024 Next Appt Details Provider Name:Sebastian gaxiola, 05/18/2025 07:00:00 AM, [address], [address], [place], [place], [phone], Provider Name:Sebastian Yulia Gomez khalida, 05/26/2025 01:00:00 PM, [address], [address], [place], [place], [phone], Progress Notes * Katelynn CID LDOB:[birth year] (79 yo F)Acc No.[id number]:08/21/2024 Patient: Katelynn VEE :1945 A ge:79 Y S ex:Female Address:[address] [place] [address], [phone] * Refills Refill Concerta Tablet Extended Release, 27 MG, Orally, 30 Tablet, 1 tablet in the morning, Once a day, 30 days, Refills=0 * true * Date: Generated for Po doll/Gurvinder/Enedinaitting on: 02/29/2024 07:55 AM EST
--- OUTSIDE RECORDS SUMMARY | 2024-09-23 02:27 | XMS_ITS ---
Author Organization Sebastian Boland MD Address [address] [place] [phone] Care Team Providers Care Sulphate Tester Name Role Phone Sebastian Boland Primary Care Provider [phone] REASON FOR VISIT New Refill Request Medications Medication SIG (Take, Route, Fr equency, Duration) Notes Start Date End Date Status Concerta 27 MG 1 tablet in the morn ing Orally Once a day for 30 days 09/23/2024 Active Encounters Encounter Location Date Provider Diagnosis Sebastian Boland MD [address] [place] [phone] 09/23/2024 Sebastian Boland Attention deficit hyperactivity disorder [...] 07:00:00 AM, [address], [address], [place], [place], [phone], Provider Name:Sebastian Yulia Gomez khalida, 05/26/2025 01:00:00 PM, [address], [address], [place], [place], [phone], Progress Notes * Katelynn CID LDOB:[birth year] (79 yo F)Acc No.[id number]:09/23/2024 Patient: Katelynn VEE :1945 A ge:79 Y S ex:Female Address:[address] [place] [address], [phone] * Refills Refill Concerta Tablet Extended Release, 27 MG, Orally, 30 Tablet, 1 tablet in the morning, Once a day, 30 days, Refills=0 * true * Date: Generated for Po doll/Gurvinder/Enedinaitting on: 02/29/2024 07:56 AM EST
--- OUTSIDE RECORDS SUMMARY | 2024-10-25 02:03 | XMS_ITS ---
Author Organization Sebastian Boland MD Address [address] [place] [phone] Care Team Providers Care Home Worker Name Role Phone Sebastian Boland Primary Care Provider REASON FOR VISIT New Refill Request Medications Medication SIG (Take, Route, Fr equency, Duration) Notes Start Date End Date Status Concerta 27 MG 1 tablet in the morn ing Orally Once a day for 30 days 10/25/2024 Active Encounters Encounter Location Date Provider Diagnosis Sebastian Boland MD [address] [place] [phone] 10/25/2024 Sebastian Boland Attention deficit hyperactivity disorder [...] Provider Name:Sebastian gaxiola, 05/18/2025 07:00:00 AM, [address], [address], [place], [place], [phone], Provider Name:Sebastian Yulia Jason gaxiola, 05/26/2025 01:00:00 PM, [address], [address], [place], [place], [phone], Progress Notes * Katelynn CID LDOB:[birth year] (79 yo F)Acc No.[id number]:10/25/2024 Patient: Katelynn VEE :1945 A ge:79 Y S ex:Female Address:[address] [place] [address], [phone] * Refills Refill Concerta Tablet Extended Release, 27 MG, Orally, 30 Tablet, 1 tablet in the morning, Once a day, 30 days, Refills=0 * true * Date: Generated for Po doll/Gurvinder/Enedinaitting on: 02/29/2024 07:54 AM EST
--- OUTSIDE RECORDS SUMMARY | 2024-11-04 02:30 | XMS_ITS ---
Author Organization Sebastian Boland MD Address [address] [place], [place] [phone] Care Team Providers Care Enroller Name Role Phone Sebastian Boland Primary Care Provider [phone] Results Component Value Reference Range Notes Liver Panel Reviewed date:11/06/2024 02:45:10 PM Interpretation: Performing Lab:[facility], [address] [place] [phone] Notes/Report: Bilirubin Total 0.4 0.0-1.0 mg/dL Bilirubin Direct 0.2 0.0-0.5 mg/dL Aspartate Amino Transferase 33 5-31 U/L Alanine Aminotransferase 19 0-31 U/L Total Protein 6.6 6.5-8.0 g/dL Albumin Level 3.8 3.5-5.0 g/dL Alkaline Phosphatase 52 39-117 U/L Lipid Panel with Reflex Reviewed date:11/06/2024 02:46:04 PM Interpretation: Performing Lab:[facility], [address] [place] [phone] Notes/Report: Triglycerides 54 <150 mg/dL Desirable Triglyceride: less than 150 mg/dL Borderline High Triglyceride 150-199 mg/dL High Triglyceride: 200-499 mg/dL Very High Triglyceride: greater than or equal to 5OO mg/dL Cholesterol 158 <200 mg/dL Desirable Cholesterol: less than 200 mg/dL Borderline High Cholesterol: 200-239 mg/dL High Cholesterol: greater than 239 mg/dL LDL Cholesterol Calculated 83 <100 mg/dL Desirable LDL: less than 100 mg/dL Near Optimal/Above Optimal LDL: 110-129 mg/dL Borderline High LDL: 130-159 mg/dL High LDL: 160-189 mg/dL Very High LDL: greater than or equal to 190 mg/dL HDL Cholesterol 65 >40 mg/dL Desirable HDL: greater than 40 mg/dL Note: This HDL assay may give artificially low results in patients with liver disease. REASON FOR VISIT fasting lipids Immunizations Vaccine Route Administration Date Status Comme nts Influenza High Dose IM Intramuscular 11/04/2024 Administer ed Problems Problem Type SNOMED Code ICD Code Onset Dates Problem Status W/U Status Risk Notes Problem Abdominal aortic aneurysm (disorder) (996898005) AAA (abdominal aortic aneurysm) without rupture (I71.40) Active confirmed Encounters Encounter Location Date Provider Diagnosis Sebastian Boland MD [address] [place] [address] [place] [phone] 11/04/2024 Sebastian Boland Hypercholesteremia E 78.00 ; Encounter for administration of vaccine Z23 and AAA (abdominal aortic aneurysm) without rupture I71.40 Assessments Encounter Date Diagnosis (ICD Code) Assessment Notes Treatment Notes Treatment Clinical Notes Section Notes 11/04/2024 Hypercholesteremia (ICD-10 - E78.00) 11/04/2024 Encounter for administration of vaccine (ICD-10 - Z23) 11/04/2024 AAA (abdominal aorti c aneurysm) without rupture (ICD-10 - I71.40) Plan Of Treatment Next Appt Details Provider Name:Sebastian gaxiola, 05/18/2025 07:00:00 AM, [address] [place] [address], Suite [facility], [place], [place], [phone], Provider Name:Sebastian gaxiola, 05/26/2025 01:00:00 PM, [address] [place] [address], Suite [facility], [place], [place], [phone], Progress Notes * Katelynn CID LDOB:[birth year] (79 yo F)Acc No.[id number]:11/04/2024 Progress Note Patient: Katelynn VEE Provider: Ziggy Boland MD :1945 A ge:79 Y S ex:Female Date:11/04/2024 Address:[address] [place], [place] [phone] Subjective: * Chief Complaints: * 1 . Fasting lipids. * Medical History: Objective: * Vitals: Assessment: * Assessment: 1. E ncounter for administration of vaccine - Z23 (Primary) 2 . H ypercholesteremia - E78.00 3 . A AA (abdominal aortic aneurysm) without rupture - I71.40? Plan: * Treatment: * Immunizations: Influenza High Dose : 0.5 mL (Dose No:1) (Route: Intramuscular) given by Donna Salazar , Office Staff on Left Deltoid * Procedure Codes: 3 6415 VENIPUNCT, ROUTINE*, 50203 FLU VACC PRSV FREE INC ANTIG, G0008 ADMN FLU VAC NO FEE SCHED SAME DAY * * The named appointment provid er may or may not be the originator of this progress note, and it is not deemed complete until electronically signed by the appointment provider. Sign off status: Pending * Provider: Ziggy Boland MD Date: 0 11/04/2024 Generated for Po doll/Gurvinder/Enedinaitting on: 1 02/29/2024 07:55 AM EST
--- OUTSIDE RECORDS SUMMARY | 2024-11-15 09:30 | XMS_ITS ---
Author Organization Sebastian Boland MD Address [address] [place], [place] [id number] Care Team Providers Care Junior Graphic Designer Name Role Phone Sebastian Boland Primary [...] Location Date Provider Diagnosis Sebastian Boland MD [address] [place] [address] [place] [phone] 11/15/2024 Sebastian Boland Chondritis of left external [...] Details Provider Name:Sebastian gaxiola, 05/18/2025 07:00:00 AM, [address] [place] [address], Suite [facility], [place], [place], [phone], Provider Name:Sebastian gaxiola, 05/26/2025 01:00:00 PM, [address] [place] [address], Suite [facility], [place], [place], [phone], Progress Notes * Katelynn CID LDOB:[birth year] (79 yo F)Acc No.[id number]:11/15/2024 Progress Notes Patient: Katelynn VEE Provider: Ziggy Boland MD :1945 A ge:79 Y S ex:Female Date:11/15/2024 Address:[address] [place] [address] Jojo COPE [phone] Subjective: * Chief Complaints: * 6 month [...] 0 11/15/2024 Generated for Po doll/Gurvinder/Adali on: 1 02/29/2024 07:56 AM EST History and Physical Notes * [...]
--- NOTE | ~2024-12-29 | MM_ITS ---
EXAMINATION: MM SCREENING DIGITAL BREAST TOMOSYNTHESIS, BILATERAL CLINICAL INFORMATION: Screening. Asymptomatic. COMPARISON: Mammography: Comparison is made with available priors TECHNIQUE: Digital breast mammography with tomosynthesis is performed in both the craniocaudal and mediolateral oblique views along with computer-aided detection (CAD). FINDINGS: The breasts are heterogeneously dense, which may obscure small masses. Right: Asymmetry superior breast middle depth on MLO view. No suspicious calcifications or other abnormal findings. Left: There are no significant masses, abnormal calcifications, or other abnormalities. MM/MM tomosynthesis screening BI IMPRESSION: Additional imaging is recommended ASSESSMENT: BI-RADS Category 0: Incomplete - Need additional Imaging Evaluation RECOMMENDATION: 1. Additional views of the right breast. 2. Targeted ultrasound if warranted after review of the additional views. 3. Radiology department staff will contact the patient for additional imaging. Additional Imaging required Electronically signed by: Kiara Rashid DO 12/29/2024 08:31 AM LOI
--- OUTSIDE RECORDS SUMMARY | 2024-12-29 07:56 | XMS_ITS | Patient Health Record ---
Author Organization [facility] Address [address] [place] [phone] Care Team Providers Care Event Marketing Specialist Name Role Phone Sebastian Boland MD Primary Care Provider Bg Garcia Unavailable [phone] Reason For Referral No Information Medications Medication SIG (Take, Route, Frequency, Duration) Notes Start Date End Date Status Pramipexole Dihydrochloride Active amLODIPine Besylate Active Calcium Active Atorvastatin Calcium Active Naproxen BID Active Venlafaxine HCl Acti ve Omeprazole 40 MG 1 capsule Orally Onc e a day Active Social History Tobacco Use: Social History Observation Description Date Details (start date - stop date) Never Smoker NA - NA Tobacco Use/Smoking Question Answer Notes Patient is a nonsmoker Alcohol Screen Question Answer Notes Did you have a drink contain ing alcohol in the past year? Yes How often did you have a dri nk containing alcohol in the past year? Never (0 point) How many drinks did you have on a typical day when you were drinking in the past year? 1 or 2 drinks (0 point) How often did you have 6 or more drinks on one occasion in the past year? Never (0 point) Points 0 Interpretation Negative Section Notes: Nonsmoker; one drink very oc casionally. Nonsmoker; one drink very oc casionally. Problems Problem Type SNOMED Code ICD Code Onset Dates Problem Status W/U Status Risk Notes Problem Screening for malignant neoplasm of colon (232587128) Encounter for screening for malignant neoplasm of colon (Z12.11) Active confirmed Problem Gastroesophageal reflux disease (094664110) Gastroesophageal reflux disease, esophagitis presence not specified (K21.9) Active confirmed Problem Hiatal hernia (98608448) Hiatal hernia (K44.9) Active confirmed Problem Reflux esophagitis (473333398) Reflux esophagitis (K21.0) Active confirmed Plan Of Treatment Future Test Test Name Order Date UPPER GI ENDOSCOPY 02/17/2017 COLONOSCOPY 02/17/2017 Insurance Providers Payer Name Payer Address Payer Phone Subscriber Number Group Number Insured Name Patient Relationship to Insured Coverage Start Date Coverage End Date [employer] [address] JUVENAL MELCHOR [phone] [id number] YON CID Self - patient is the insured Medical (General) History Medical History History ICD Code Hypertension Denies VT,DM,CVA,Lung disease,renal dise ase Negative screening colonoscopy at [facility] in 2004 and with me in 03/2018 Hyperlipidemia GERD--EGD in 03/2018--Moderat e-sized HH, erosive esophagitis--biopsies were negative for Tirado's esophagus Depression Restless leg syndrome Arthritis Surgical History Surgery Date(Month/Year) Knee surgery bilateral--arthroscopies Left hand arthroplasty left 2016 Broken right ankle 200003/17/17 left knee replacemen t with Dr. Selby, is scheduled for the left knee replacement in 11/2018
--- OUTSIDE RECORDS SUMMARY | 2024-12-29 07:56 | XMS_ITS | Patient Health Record ---
Author Organization Sebastian Boland MD Address [address] [place], [place] [phone] Care Team Providers Care Counter Dish Carrier Name Role Phone Sebastian Boland Primary Care Provider [phone] Allergies No Known Allergies Results Component Value Reference Range Notes Complete Blood Count Auto Di ff Reviewed date:04/21/2024 04:53:15 PM Interpretation: Performing Lab:[facility], [address] [place] [phone] Notes/Report: White Blood Count 5.5 4.8-10.8 X10*3/uL [...] NRBC Abs Auto 0.000 0.0-0.012 X10*3/uL Comprehensive [place]. Panel Fa st Reviewed date:04/21/2024 12:55:34 PM Interpretation: Performing Lab:[facility], [address] [place] [phone] Notes/Report: Sodium 142 135-145 mmol/L Potassium 4.0 [...] Panel Reviewed date:04/21/2024 12:20:19 PM Interpretation: Performing Lab:[facility], [address] [place] [phone] Notes/Report: Triglycerides 45 <150 mg/dL Desirable Triglyceride: [...] t Reviewed date:04/21/2024 04:53:44 PM Interpretation: Performing Lab:[facility], [address] [place] [phone] Notes/Report: Urine, Clean Catch Color Urine Yellow Appearance Urine Clear PH 5.5 5.0-9.0 Glucose Urine UA Negative Negative mg/dL Urine Blood Negative Negative Specific [place] - Urine 1.020 1.005-1.025 Urine Protein Negative Neg-Trace mg/dL Urine Ketones Negative Negative mg/dL Nitrite Urine Negative Negative Leukocyte Esterase Urine Moderate (2+) Negative RBC Urine 0-2 0-2 /HPF WBC Urine 21-50 0-5 /HPF Squamous Epithelial Cell Urine 0-2 0-2 /HPF Bacteria Urine None Seen None Seen Hyaline Casts Urine 0-2 0-2 /LPF Liver Panel Reviewed date:11/06/2024 02:45:10 PM Interpretation: Performing Lab:[facility], [address] [place] [phone] Notes/Report: Bilirubin Total 0.4 0.0-1.0 mg/dL Bilirubin Direct 0.2 0.0-0.5 mg/dL Aspartate Amino Transferase 33 5-31 U/L Alanine Aminotransferase 19 0-31 U/L Total Protein 6.6 6.5-8.0 g/dL Albumin Level 3.8 3.5-5.0 g/dL Alkaline Phosphatase 52 39-117 U/L Lipid Panel with Reflex Reviewed date:11/06/2024 02:46:04 PM Interpretation: Performing Lab:[address] [phone] Notes/Report: Triglycerides 54 <150 mg/dL Desirable Triglyceride: [...] patients with liver disease. Urine Culture Reviewed date:04/22/2024 12:13:05 PM Interpretation: Performing Lab:[facility], [address] [place] [phone] Notes/Report: Urine Culture Report Result Urine Culture < 10,000 cfu/ml Taylor Quintero Reviewed date:11/04/2024 12:50:25 PM Interpretation: Performing Lab:[address] [phone] Notes/Report: Taylor Quintero See Note Specimen held untested for 24 hours; Call to request Chemistry testing. Reason For Referral No Information Medications Medication SIG (Take, Route, Frequency, Duration) Notes Start Date End Date Status Venlafaxine HCl ER 150 MG TAKE ONE CAPSU LE BY MOUTH EVERY DAY WITH VENLAFAXNE ER 75MG. for 30 Active Methylphenidate HCl ER (OSM) 27 MG TAKE ONE TABLET BY MOUTH EVERY MORNING for 30 12/28/2024 Active Ventolin HFA 108 (90 Base) MCG/ACT 2 puffs as needed Inhalation every 4 hrs for 30 days 03/20/2016 Not-Taking Percocet 5-325 MG 0.5 tablet as needed Orally HS Not-Taking Omeprazole 40 MG TAKE ONE CAPSULE BY MOUTH EVERY DAY Active Naproxen 500 MG TAKE ONE TABLET BY MOUTH TWICE A DAY for 30 Active Calcium 1000 + D 1000-800 MG-UNIT 1 tablet with a meal Orally Once a day Active Clobetasol Propionate 0.05 % 1 application to affected area Externally Twice a day for 10 day(s) 02/24/2017 Not-Taking Pramipexole Dihydrochloride 0.25 MG TAKE TWO TABLETS BY MOUTH DAILY AT BEDTIME for 90 Active Atorvastatin Calcium 10 MG TAKE ONE TABL ET BY MOUTH EVERY DAY for 90 Active Immunizations Vaccine Route Administration Date Status Comme [...] High Dose IM Intramuscular 03/07/2022 Administer ed Influenza High Dose IM Intramuscular 10/27/2023 Administer ed Influenza High Dose IM Intramuscular 11/04/2024 Administer ed TDaP Unknown 10/07/2018 Refused Covid Vaccine Unknown 01/04/2021 Refused Social History Tobacco Use: Social History Observation [...] Never (0 point) Points 2 Interpretation Negative Problems Problem Type SNOMED Code ICD Code Onset Dates Problem Status W/U Status Risk Notes Problem 73943464 Age-related osteoporosis without current pathological fracture (M81.0) Active confirmed Problem 399709559 Restless legs syndrome (G25.81) Active confirmed Problem 27777045 Essential hypertension (I10) Active confirmed Problem 63156489 Heart murmur (R01.1) Active confirmed Problem 306249695 Acute non intractable tension-type headache (G44.209) Active confirmed Problem 25450699 Dysthymia (F34.1) Active confirmed Problem 03863350 Attention defici t hyperactivity disorder (ADHD), combined type (F90.2) Active confirmed Problem 319943053 Blood loss anemi a (D50.0) Active confirmed Problem 33935788 Hypersomnia (G47.10) Active confirmed Problem 07402107 Sciatica of righ t side (M54.31) Active confirmed Problem 511041738 Loss of balance (R26.89) Active confirmed Problem 01311035839472661 Bilateral carp al tunnel syndrome (G56.03) Active confirmed Problem 12780762 Hypercholesterem ia (E78.00) Active confirmed Problem 22989145 Hip arthritis (M16.10) Active confirmed Problem 634055973 Gastroesophageal reflux disease with esophagitis without hemorrhage (K21.00) Active confirmed Problem Abdominal aortic aneurysm (disorder) (497438746) AAA (abdominal aortic aneurysm) without rupture (I71.40) Active confirmed Vital Signs Blood pressure diastolic 50 mm Hg 11/15/2024 get ght is up 5 pounds since 05-16-24 Height 63 in 11/15/2024 weight is up 5 pounds since 05-16-24 Blood pressure systolic 132 mm Hg 11/15/2024 getg ht is up 5 pounds since 05-16-24 Weight 142 lbs 11/15/2024 weight is up 5 pounds since 05-16-24 BMI 25.15 kg/m2 11/15/2024 weight is up 5 pounds since 05-16-24 Encounters Encounter Location Date Provider Diagnosis Sebastian Boland MD [address] [place] [id number] 04/21/2024 Sebastian Boland Blood tests for rout ine general physical examination Z00.00 and Hypercholesteremia E78.00 Sebastian Boland MD [address] [place] [address] Drive [address] [place] [id number] 11/04/2024 Sebastian Boland Hypercholesteremia E 78.00 ; Encounter for administration of vaccine Z23 and AAA (abdominal aortic aneurysm) without rupture I71.40 Sebastian Boland MD [address] [place] [id number] 05/16/2024 Sebastian Boland Annual physical exam Z00.00 ; Essential hypertension I10 ; Attention deficit hyperactivity disorder (ADHD), combined type F90.2 ; Hypercholesteremia E78.00 ; Gastroesophageal reflux disease with esophagitis without hemorrhage K21.00 and Depression screening Z13.31 Sebastian Boland MD [address] [place] [id number] 11/15/2024 Sebastian Boland 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 ; Hypercholesteremia E78.00 and Restless legs syndrome G25.81 Sebastian Boland MD [address] [place] [id number] 01/22/2024 Sebastian Boland Attention deficit hyperactivity disorder (ADHD), combined type F90.2 Sebastian Boland MD [address] [place] [id number] 02/22/2024 Sebastian Boland Attention deficit hyperactivity disorder (ADHD), combined type F90.2 Sebastian Boland MD [address] [place] [id number] 02/25/2024 Sebastian Boland MD [address] [place] [id number] 02/29/2024 Sebastian Boland Attention deficit hyperactivity disorder (ADHD), combined type F90.2 Sebastian Boland MD [address] [place] [id number] 03/31/2024 Sebastian Boland Attention deficit hyperactivity disorder (ADHD), combined type F90.2 Sebastian Boland MD [address] [place] [id number] 05/05/2024 Sebastian Boland Attention deficit hyperactivity disorder (ADHD), combined type F90.2 Sebastian Boland MD [address] [place] [id number] 06/10/2024 Sebastian Boland Attention deficit hyperactivity disorder (ADHD), combined type F90.2 Sebastian Boland MD [address] [place] [id number] 07/21/2024 Sebastian Boland Attention deficit hyperactivity disorder (ADHD), combined type F90.2 Sebastian Boland MD [address] [place] [id number] 08/21/2024 Sebastianinder Boland Attention deficit hyperactivity disorder (ADHD), combined type F90.2 Sebastian Boland MD [address] [place] [id number] 09/23/2024 Sebastian Boland Attention deficit hyperactivity disorder (ADHD), combined type F90.2 Sebastian Boland MD [address] [place] [id number] 10/25/2024 Sebastian Boland Attention deficit hyperactivity disorder (ADHD), combined type F90.2 Assessments Encounter Date Diagnosis (ICD Code) Assessment Notes Treatment Notes Treatment Clinical Notes Section Notes 04/21/2024 Blood tests for routine general physical examination (ICD-10 - Z00.00) 11/04/2024 Hypercholesteremia (ICD-10 - E78.00) 11/04/2024 Encounter for administration of vaccine (ICD-10 - Z23) 05/16/2024 Annual physical exam (ICD-10 - Z00.00) labs reviewed and discussed with patient 05/16/2024 Essential hypertensi on (ICD-10 - I10) doing well, will continue current regiment 11/15/2024 Chondritis of left external ear (ICD-10 - H61.032) just observe and try not to sleep on it 01/22/2024 Attention deficit hyperactivity disorder (ADHD), combined type (ICD-10 - F90.2) 02/22/2024 Attention deficit hyperactivity disorder (ADHD), combined type (ICD-10 - F90.2) 02/29/2024 Attention deficit hyperactivity disorder (ADHD), combined type (ICD-10 - F90.2) 03/31/2024 Attention deficit hyperactivity disorder (ADHD), combined type (ICD-10 - F90.2) 05/05/2024 Attention deficit hyperactivity disorder (ADHD), combined type (ICD-10 - F90.2) 06/10/2024 Attention deficit hyperactivity disorder (ADHD), combined type (ICD-10 - F90.2) 07/21/2024 Attention deficit hyperactivity disorder (ADHD), combined type (ICD-10 - F90.2) 08/21/2024 Attention deficit hyperactivity disorder (ADHD), combined type (ICD-10 - F90.2) 09/23/2024 Attention deficit hyperactivity disorder (ADHD), combined type (ICD-10 - F90.2) 10/25/2024 Attention deficit hyperactivity disorder (ADHD), combined type (ICD-10 - F90.2) 04/21/2024 Hypercholesteremia (ICD-10 - E78.00) 11/04/2024 AAA (abdominal aorti c aneurysm) without rupture (ICD-10 - I71.40) 05/16/2024 Attention deficit hyperactivity disorder (ADHD), combined type (ICD-10 - F90.2) doing well on meds, will continue current regiment 11/15/2024 Hypercholesteremia (ICD-10 - E78.00) well controlled 05/16/2024 Hypercholesteremia (ICD-10 - E78.00) stable, will continue current regiment 11/15/2024 Restless legs syndro me (ICD-10 - G25.81) 05/16/2024 Gastroesophageal reflux disease with esophagitis without hemorrhage (ICD-10 - K21.00) doing well, will continue curent regiment 05/16/2024 Depression screening (ICD-10 - Z13.31) negative screen Plan Of Treatment Pending Test Test Name Order Date ECHO 08/15/2016 EMG 05/10/2020 US pelvic and transvaginal 07/28/2023 Next Appt Details Provider Name:Sebastian gaxiola, 05/18/2025 07:00:00 AM, [address], [place], [place], [phone], Provider Name:Sebastian gaxiola, 05/26/2025 01:00:00 PM, [address], [address], [place], [place], [phone], Insurance Providers Payer Name Payer Address Payer Phone Subscriber Number Group Number Insured Name Patient Relationship to Insured Coverage Start Date Coverage End Date [facility] [address] JUVENAL Remy [phone] [id number] Katelynn Hanna Self - patient is the insured Medical (General) History Medical History History ICD Code colonoscopy 2004; colonoscop y done by Dr. Tellez 03/22/18 - no further testing indicated.08/21/23 colonoscopy- stable Endoscopy 03/22/[address] Tellez Surgical History Surgery Date(Month/Year) Lt 1st [facility] Arthroplasty by Dr. Osuna 0 10/2016 Lt Total Knee Arthroplasty by Dr. Acosta n 02/2017 Rt Total Knee Arthroplasty by Dr. Acosta n 11/2018
== END 2024-12-29 07:53 | disposition home or self-care (01) ==
LOC: HO.MAMMO 07:52
PROVIDERS: Visit Provider Internal Medicine
DX: Z12.31 Encounter for screening mammogram for malignant neoplasm of breast (principal)
CPT/HCPCS: 77063; 77067

== ENCOUNTER → 2024-12-29 08:00 | Outpatient (BNV) | payer MEDICARE, SELFPAY | PROVIDERS: Visit Provider Internal Medicine | DX: Z12.31 Encounter for screening mammogram for malignant neoplasm of breast (principal) | CPT/HCPCS: 77063; 77067 ==

== ENCOUNTER 2025-01-10 14:55 | Outpatient (REF) | payer MEDICARE, SELFPAY ==
--- OUTSIDE RECORDS SUMMARY | 2024-04-21 02:45 | XMS_ITS ---
Author Organization Sebastian Boland MD Address [address] [place], [place] [phone] Care Team Providers Care Family Helper Name Role Phone Sebastian Boland Primary Care Provider Results Component Value Reference Range Notes Complete Blood Count Auto Di ff Reviewed date:04/21/2024 04:53:15 PM Interpretation: Performing Lab:[facility], [address] [place] [phone] Notes/Report: White Blood Count 5.5 4.8-10.8 X10*3/uL Red Blood Count 3.97 4.20-5.50 X10*6/uL Hemoglobin 11.9 12.0-16.0 g/dl Hematocrit 37.3 37.0-47.0 % Mean Corpuscular Volume 94.0 80.0-98.0 fL Mean Corpuscular Hemoglobin 30.0 27.0-33.0 pg Mean Corpuscular HGB Conc 31.9 31.0-35.0 g/dl Red Cell Distribution Width 13.6 11.0-16.0 % Platelet Count 357 160-400 X10*3/uL Mean Platelet Volume 10.9 9.4-12.3 fL Neutrophils Percent Auto 49.2 45-73 % Imm Gran Pct Auto 0.4 0.0-0.4 % Lymphocytes Percent Auto 30.4 20-40 % Monocytes Percent Auto 13.2 2-11 % Eosinophils Percent Auto 6.3 0-4 % Basophils Percent Auto 0.5 0-2 % NRBC Pct Auto 0.0 0.0-0.2 /100WBC Neutrophils Absolute Auto 2.7 2.0-8.3 x10*3/u L Imm Gran Abs Auto 0.02 0.00-0.03 X10*3/uL Lymphocytes Absolute Auto 1.7 1.2-4.9 X10*3/u L Monocytes Absolute Auto 0.7 0.1-1.2 X10*3/uL Eosinophils Absolute Auto 0.4 0.0-0.4 X10*3/u L Basophils Absolute Auto 0.0 0.0-0.2 X10*3/uL NRBC Abs Auto 0.000 0.0-0.012 X10*3/uL Comprehensive [place]. Panel Fa st Reviewed date:04/21/2024 12:55:34 PM Interpretation: Performing Lab:[facility], [address] [place] [phone] Notes/Report: Sodium 142 135-145 mmol/L Potassium 4.0 3.3-5.1 mmol/L Chloride 109 96-108 mmol/L Carbon Dioxide 26 22-29 mmol/L Anion Gap 11 12-20 Blood Urea Nitrogen 21 9-16 mg/dL Creatinine 0.71 0.5-1.4 mg/dL Estimated Glomerular Filt Rate > 60 Chronic Kidney Disease: Estimated GFR < 60 mL/min/1.73m2 Severe Kidney Disease: Estimated GFR < 15 mL/min/1.73m2 Glucose Fasting 84 60-99 mg/dL Calcium 8.8 8.4-10.2 mg/dL Bilirubin Total 0.6 0.0-1.0 mg/dL Aspartate Amino Transferase 29 5-31 U/L Alanine Aminotransferase 20 0-31 U/L Total Protein 6.8 6.5-8.0 g/dL Albumin Level 3.6 3.5-5.0 g/dL Alkaline Phosphatase 55 39-117 U/L Lipid Panel Reviewed date:04/21/2024 12:20:19 PM Interpretation: Performing Lab:[facility], [address] [place] [phone] Notes/Report: Triglycerides 45 <150 mg/dL Desirable Triglyceride: less than 150 mg/dL Borderline High Triglyceride 150-199 mg/dL High Triglyceride: 200-499 mg/dL Very High Triglyceride: greater than or equal to 5OO mg/dL Cholesterol 147 <200 mg/dL Desirable Cholesterol: less than 200 mg/dL Borderline High Cholesterol: 200-239 mg/dL High Cholesterol: greater than 239 mg/dL LDL Cholesterol Calculated 74 <100 mg/dL Desirable LDL: less than 100 mg/dL Near Optimal/Above Optimal LDL: 110-129 mg/dL Borderline High LDL: 130-159 mg/dL High LDL: 160-189 mg/dL Very High LDL: greater than or equal to 190 mg/dL HDL Cholesterol 64 >40 mg/dL Desirable HDL: greater than 40 mg/dL Note: This HDL assay may give artificially low results in patients with liver disease. UA ClnCatch+Micro w/rflx Cul t Reviewed date:04/21/2024 04:53:44 PM Interpretation: Performing Lab:[facility], [address] [place] [phone] Notes/Report: Urine, Clean Catch Color Urine Yellow Appearance Urine Clear PH 5.5 5.0-9.0 Glucose Urine UA Negative Negative mg/dL Urine Blood Negative Negative Specific [place] - Urine 1.020 1.005-1.025 Urine Protein Negative Neg-Trace mg/dL Urine Ketones Negative Negative mg/dL Nitrite Urine Negative Negative Leukocyte Esterase Urine Moderate (2+) Negative RBC Urine 0-2 0-2 /HPF WBC Urine 21-50 0-5 /HPF Squamous Epithelial Cell Urine 0-2 0-2 /HPF Bacteria Urine None Seen None Seen Hyaline Casts Urine 0-2 0-2 /LPF REASON FOR VISIT FASTING LABS Encounters Encounter Location Date Provider Diagnosis Sebastian Boland MD [address] [place], [place] [phone] 04/21/2024 Sebastian Boland Blood tests for rout ine general physical examination Z00.00 and Hypercholesteremia E78.00 Assessments Encounter Date Diagnosis (ICD Code) Assessment Notes Treatment Notes Treatment Clinical Notes Section Notes 04/21/2024 Blood tests for routine general physical examination (ICD-10 - Z00.00) 04/21/2024 Hypercholesteremia (ICD-10 - E78.00) Plan Of Treatment Next Appt Details Provider Name:Sebastian Gomez ier, 05/18/2025 07:00:00 AM, [address], [address], [place], [place], [phone], Provider Name:Sebastian Gomez ier, 05/26/2025 01:00:00 PM, [address], [address], [place], [place], [phone], Progress Notes * Katelynn CID LDOB:[birth year] (79 yo F)Acc No.[id number]:04/21/2024 Progress Note Patient: Katelynn VEE Provider: Ziggy Boland MD :1945 A ge:78 Y S ex:Female Date:04/21/2024 Address:[address] [place], [place] [phone] Subjective: * Chief Complaints: * 1 . FASTING LABS. * Medical History: Objective: * Vitals: Assessment: * Assessment: 1. B lood tests for routine general physical examination - Z00.00 (Primary) 2 .?Hypercholesteremia - E78.00 Plan: * Treatment: 2. H ypercholesteremia L AB: Complete Blood Count Auto Diff (Collection Date & Time - 04/21/2024 07:45 AM) L AB: Comprehensive [place]. Panel Fast (Collection Date & Time - 04/21/2024 07:45 AM) L AB: Lipid Panel (Collection Date & Time - 04/21/2024 07:45 AM) L AB: UA ClnCatch+Micro w/rflx Cult (Collection Date & Time - 04/21/2024 07:45 AM) * Procedure Codes: 3 6415 VENIPUNCT, ROUTINE* * * The named appointment provid er may or may not be the originator of this progress note, and it is not deemed complete until electronically signed by the appointment provider. Sign off status: Pending * Provider: Ziggy Boland MD Date: 0 04/21/2024 Generated for Po doll/Gurvinder/Adali on: 03/12/2024 06:40 PM EST
--- OUTSIDE RECORDS SUMMARY | 2024-05-05 09:42 | XMS_ITS ---
Author Organization Sebastian Boland MD Address [address] [place] [phone] Care Team Providers Care Delivery Assistant Name Role Phone Sebastian Boland Primary Care Provider [phone] REASON FOR VISIT med refill Medications Medication SIG (Take, Route, Fr equency, Duration) Notes Start Date End Date Status Concerta 27 MG 1 tablet in the morn ing Orally Once a day for 30 days 05/05/2024 Active Encounters Encounter Location Date Provider Diagnosis Sebastian Boland MD [address] [place] [phone] 05/05/2024 Sebastian Boland Attention deficit hyperactivity disorder [...] Provider Name:Sebastian gaxiola, 05/18/2025 07:00:00 AM, [address], [address], [place], [place], [phone], Provider Name:Sebastian gaxiola, 05/26/2025 01:00:00 PM, [address], [address], [place], [place], [phone], Progress Notes * Katelynn CID LDOB:[birth year] (79 yo F)Acc No.[id number]:05/05/2024 Patient: Katelynn VEE :1945 A ge:79 Y S ex:Female Address:[address] [place] [address], [phone] * Refills Refill Concerta Tablet Extended Release, 27 MG, Orally, 30, 1 tablet in the morning, Once a day, 30 days, Refills=0 * true * Date: Generated for Po doll/Gurvinder/Deidrasmitting on: 03/12/2024 06:41 PM EST
--- OUTSIDE RECORDS SUMMARY | 2024-05-16 08:45 | XMS_ITS ---
Author Organization Sebastian Boland MD Address [address] [place], [place] [id number] Care Team Providers Care Financial Reporting Consultant Name Role Phone Sebastian Boland Primary Care Provider Allergies No Known Allergies REASON FOR VISIT [...] Location Date Provider Diagnosis Sebastian Boland MD [address] [place] [address] [place] [phone] 05/16/2024 Sebastian Boland Annual physical exam Z00.00 [...] Reason: Provider Name:Sebastian gaxiola, 05/18/2025 07:00:00 AM, [address] [place] [address], [address] [place] [address], [phone], Provider Name:Sebastian gaxiola, 05/26/2025 01:00:00 PM, [address] [place] [address], [address], [place], [place], [phone], Progress Notes * Katelynn CID LDOB:[birth year] (79 yo F)Acc No.[id number]:05/16/2024 Patient: Katelynn VEE Provider: Ziggy Boland MD :1945 A ge:79 Y S ex:Female Date:05/16/2024 Address:[address] [place] [address] [id number] Subjective: * Chief Complaints: * Petrona buchananw [...] 10-13-23. * P ast Orders: L ab:Comprehensive [place]. Panel Fast (Order Date - 04/21/2024) (Collection [...] mg/dL Urine Blood Negative Negative - Specific [place] - Urine 1.020 1.005-1.025 - Urine Protein [...] 05/16/2024 Generated for Po doll/Gurvinder/Adali on: 1 03/12/2024 06:40 PM EST History and Physical Notes * HPI [...] Score: 0 Interpretation and Intervention Depression Scree amria d Findings: Negative Follow-Up for Depression: : [...]
--- OUTSIDE RECORDS SUMMARY | 2024-06-10 04:33 | XMS_ITS ---
Author Organization Sebastian Boland MD Address [address] [place] [phone] Care Team Providers Care Hide Selector Name Role Phone Sebastian Boland Primary Care Provider Medications Medication SIG (Take, Route, Fr equency, Duration) Notes Start Date End Date Status Concerta 27 MG 1 tablet in the morn ing Orally Once a day for 30 days 06/10/2024 Active Encounters Encounter Location Date Provider Diagnosis Sebastian Boland MD [address] [place] [address] Drive [address] [place] [phone] 06/10/2024 Sebastian Boland Attention deficit hyperactivity disorder [...] 07:00:00 AM, [address], [address], [place], [phone], Provider Name:Sebastian Yulia Jason gaxiola, 05/26/2025 01:00:00 PM, [address], [address], [place], [place], [phone], Progress Notes * CHETKatelynn Barrera LDOB:[birth year] (79 yo F)Acc No.[id number]:06/10/2024 Patient: Katelynn VEE :1945 A ge:79 Y S ex:Female Address:[address] [place] [address] [place], [phone] * Refills Refill Concerta Tablet Extended Release, 27 MG, Orally, 30 Tablet, 1 tablet in the morning, Once a day, 30 days, Refills=0 * true * Date: Generated for Po doll/Gurvinder/Enedinaitting on: 03/12/2024 06:40 PM EST
--- OUTSIDE RECORDS SUMMARY | 2024-07-21 10:11 | XMS_ITS ---
Author Organization Sebastian Boland MD Address [address] [place] [phone] Care Team Providers Care Machining Department Supervisor Name Role Phone Sebastian Boland Primary Care Provider REASON FOR VISIT RF Concerta 27mg Medications Medication SIG (Take, Route, Fr equency, Duration) Notes Start Date End Date Status Concerta 27 MG 1 tablet in the morn ing Orally Once a day for 30 days 07/21/2024 Active Encounters Encounter Location Date Provider Diagnosis Sebastian Boland MD [address] [place] [phone] 07/21/2024 Sebastian Boland Attention deficit hyperactivity disorder [...] 07:00:00 AM, [address], [address], [place], [place], [phone], Provider Name:Sebastian Yulia Jason gaxiola, 05/26/2025 01:00:00 PM, [address], [address], [place], [place], [phone], Progress Notes * Katelynn CID LDOB:[birth year] (79 yo F)Acc No.[id number]:07/21/2024 Patient: Katelynn VEE :1945 A ge:79 Y S ex:Female Address:[address] [place] [address], [phone] * Refills Refill Concerta Tablet Extended Release, 27 MG, Orally, 30 Tablet, 1 tablet in the morning, Once a day, 30 days, Refills=0 * true * Date: Generated for Po doll/Gurvinder/Enedinaitting on: 03/12/2024 06:40 PM EST
--- OUTSIDE RECORDS SUMMARY | 2024-08-21 12:51 | XMS_ITS ---
Author Organization Sebastian Boland MD Address [address] [place] [phone] Care Team Providers Care Store Grocery Merchandiser Name Role Phone Sebastian Boland Primary Care Provider [phone] REASON FOR VISIT New Refill Request Medications Medication SIG (Take, Route, Fr equency, Duration) Notes Start Date End Date Status Concerta 27 MG 1 tablet in the morn ing Orally Once a day for 30 days 08/22/2024 Active Encounters Encounter Location Date Provider Diagnosis Sebastian Boland MD [address] [place] [phone] 08/21/2024 Sebastian Boland Attention deficit hyperactivity disorder (ADHD), [...] 07:00:00 AM, [address], [address], [place], [place], [phone], Provider Name:Sebastian Yulia Gomez khalida, 05/26/2025 01:00:00 PM, [address], [address], [place], [place], [phone], Progress Notes * Katelynn CID LDOB:[birth year] (79 yo F)Acc No.[id number]:08/21/2024 Patient: Katelynn VEE :1945 A ge:79 Y S ex:Female Address:[address] [place] [address], [phone] * Refills Refill Concerta Tablet Extended Release, 27 MG, Orally, 30 Tablet, 1 tablet in the morning, Once a day, 30 days, Refills=0 * true * Date: Generated for Po doll/Gurvinder/Enedinaitting on: 03/12/2024 06:40 PM EST
--- OUTSIDE RECORDS SUMMARY | 2024-09-23 02:27 | XMS_ITS ---
Author Organization Sebastian Boland MD Address [address] [place] [phone] Care Team Providers Care Aerial Photograph Interpreter Name Role Phone Sebastian Boland Primary Care Provider REASON FOR VISIT New Refill Request Medications Medication SIG (Take, Route, Fr equency, Duration) Notes Start Date End Date Status Concerta 27 MG 1 tablet in the morn ing Orally Once a day for 30 days 09/23/2024 Active Encounters Encounter Location Date Provider Diagnosis Sebastian Boland MD [address] [place] [phone] 09/23/2024 Sebastian Boland Attention deficit hyperactivity disorder (ADHD), combined type F90.2 Assessments Encounter Date Diagnosis (ICD Code) Assessment Notes Treatment Notes Treatment Clinical Notes Section Notes 09/23/2024 Attention deficit hyperactivity disorder (ADHD), combined type (ICD-10 - F90.2) Plan Of Treatment Medication Medication Name Sig Start Date Stop Date Notes Concerta 27 MG 1 tablet in the morn ing Orally Once a day for 30 days 09/23/2024 Next Appt Details Provider Name:Sebastian gaxiola, 05/18/2025 07:00:00 AM, [address], [address], [place], [place], [phone], Provider Name:Sebastian Yulia Gomez khalida, 05/26/2025 01:00:00 PM, [address], [address], [place], [place], [phone], Progress Notes * Katelynn CID LDOB:[birth year] (79 yo F)Acc No.[id number]:09/23/2024 Patient: Katelynn VEE :1945 A ge:79 Y S ex:Female Address:[address] [place] [address], [phone] * Refills Refill Concerta Tablet Extended Release, 27 MG, Orally, 30 Tablet, 1 tablet in the morning, Once a day, 30 days, Refills=0 * true * Date: Generated for Po doll/Gurvinder/Enedinaitting on: 03/12/2024 06:41 PM EST
--- OUTSIDE RECORDS SUMMARY | 2024-10-25 02:03 | XMS_ITS ---
Author Organization Sebastian Boland MD Address [address] [place] [phone] Care Team Providers Care Pet Resort Concierge Name Role Phone Sebastian Boland Primary Care Provider REASON FOR VISIT New Refill Request Medications Medication SIG (Take, Route, Fr equency, Duration) Notes Start Date End Date Status Concerta 27 MG 1 tablet in the morn ing Orally Once a day for 30 days 10/25/2024 Active Encounters Encounter Location Date Provider Diagnosis Sebastian Boland MD [address] [place] [phone] 10/25/2024 Sebastian Boland Attention deficit hyperactivity disorder (ADHD), combined type F90.2 Assessments Encounter Date Diagnosis (ICD Code) Assessment Notes Treatment Notes Treatment Clinical Notes Section Notes 10/25/2024 Attention deficit hyperactivity disorder (ADHD), combined type (ICD-10 - F90.2) Plan Of Treatment Medication Medication Name Sig Start Date Stop Date Notes Concerta 27 MG 1 tablet in the morn ing Orally Once a day for 30 days 10/25/2024 Next Appt Details Provider Name:Sebastian gaxiola, 05/18/2025 07:00:00 AM, [address], [address], [place], [place], [phone], Provider Name:Sebastian Yulia Johnsondot gaxiola, 05/26/2025 01:00:00 PM, [address], [address], [place], [place], [phone], Progress Notes * Katelynn CID LDOB:[birth year] (79 yo F)Acc No.[id number]:10/25/2024 Patient: Katelynn VEE :1945 A ge:79 Y S ex:Female Address:[address] [place] [address], [phone] * Refills Refill Concerta Tablet Extended Release, 27 MG, Orally, 30 Tablet, 1 tablet in the morning, Once a day, 30 days, Refills=0 * true * Date: Generated for Po doll/Gurvinder/Enedinaitting on: 03/12/2024 06:40 PM EST
--- OUTSIDE RECORDS SUMMARY | 2024-11-04 02:30 | XMS_ITS ---
Author Organization Sebastian Boland MD Address [address] [place], [place] [phone] Care Team Providers Care Dynamometer Tuner Name Role Phone Sebastian Boland Primary Care Provider [phone] Results Component Value Reference Range Notes Liver Panel Reviewed date:11/06/2024 02:45:10 PM Interpretation: Performing Lab:[facility], [address] [place] [phone] Notes/Report: Bilirubin Total 0.4 0.0-1.0 mg/dL Bilirubin Direct 0.2 0.0-0.5 mg/dL Aspartate Amino Transferase 33 5-31 U/L Alanine Aminotransferase 19 0-31 U/L Total Protein 6.6 6.5-8.0 g/dL Albumin Level 3.8 3.5-5.0 g/dL Alkaline Phosphatase 52 39-117 U/L Lipid Panel with Reflex Reviewed date:11/06/2024 02:46:04 PM Interpretation: Performing Lab:[facility], [address] [place] [phone] Notes/Report: Triglycerides 54 <150 mg/dL Desirable Triglyceride: [...] Risk Notes Problem Abdominal aortic aneurysm (disorder) (892149491) AAA (abdominal aortic aneurysm) without rupture (I71.40) Active confirmed Encounters Encounter Location Date Provider Diagnosis Sebastian Boland MD [address] [place] [address] [place] [phone] 11/04/2024 Sebastian Boland Hypercholesteremia E 78.00 ; [...] Details Provider Name:Sebastian gaxiola, 05/18/2025 07:00:00 AM, [address] [place] [address], Suite [facility], [place], [place], [phone], Provider Name:Sebastian gaxiola, 05/26/2025 01:00:00 PM, [address] [place] [address], Suite [facility], [place], [place], [phone], Progress Notes * Katelynn CID LDOB:[birth year] (79 yo F)Acc No.[id number]:11/04/2024 Progress Note Patient: Katelynn VEE Provider: Ziggy Boland MD :1945 A ge:79 Y S ex:Female Date:11/04/2024 Address:[address] [place], [place] [phone] Subjective: * Chief Complaints: * 1 . [...] * Procedure Codes: 3 6415 VENIPUNCT, ROUTINE*, 43779 FLU VACC PRSV FREE INC ANTIG, G0008 ADMN FLU VAC NO FEE SCHED SAME DAY * * The named appointment provid er may or may not be the originator of this progress note, and it is not deemed complete until electronically signed by the appointment provider. Sign off status: Pending * Provider: Ziggy Boland MD Date: 0 11/04/2024 Generated for Po doll/Gurvinder/Enedinaitting on: 03/12/2024 06:40 PM EST
--- OUTSIDE RECORDS SUMMARY | 2024-11-15 09:30 | XMS_ITS ---
Author Organization Sebastian Boland MD Address [address] [place], [place] [id number] Care Team Providers Care Film Developer Name Role Phone Sebastian Boland Primary Care Provider [phone] Allergies No Known Allergies REASON FOR VISIT 6 month Medications Medication SIG (Take, Route, Frequency, Duration) Notes Start Date End Date Status Ventolin HFA 108 (90 Base) MCG/ACT 2 puffs as needed Inhalation every 4 hrs for 30 days 03/20/2016 Not-Taking Percocet 5-325 MG 0.5 tablet as needed Orally HS Not-Taking Clobetasol Propionate 0.05 % 1 application to affected area Externally Twice a day for 10 day(s) 02/24/2017 Not-Taking Pramipexole Dihydrochloride 0.25 MG TAKE TWO TABLETS BY MOUTH DAILY AT BEDTIME for 90 Active Concerta 27 MG 1 tablet in the morning Orally Once a day for 30 days 10/25/2024 Active Venlafaxine HCl ER 150 MG TAKE ONE CAPSU LE BY MOUTH EVERY DAY WITH VENLAFAXNE ER 75MG. for 30 Active Omeprazole 40 MG TAKE ONE CAPSULE BY MOUTH EVERY DAY Active Naproxen 500 MG TAKE ONE TABLET BY MOUTH TWICE A DAY for 30 Active Calcium 1000 + D 1000-800 MG-UNIT 1 tablet with a meal Orally Once a day Active Atorvastatin Calcium 10 MG TAKE ONE TABL ET BY MOUTH EVERY DAY for 90 Active Vital Signs Blood pressure systolic 132 mm Hg 11/16/19 25 Blood pressure diastolic 50 mm Hg 025 Height 63 in 11/15/2024 Weight 142 lbs 11/15/2024 BMI 25.15 kg/m2 11/15/2024 weight is up 5 pounds since 05-16-24 Encounters Encounter Location Date Provider Diagnosis Sebastian Boland MD [address] [place] [address] [place] [phone] 11/15/2024 Sebastian Boland 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 ; Hypercholesteremia E78.00 and Restless legs syndrome G25.81 Assessments Encounter Date Diagnosis (ICD Code) Assessment Notes Treatment Notes Treatment Clinical Notes Section Notes 11/15/2024 Chondritis of left external ear (ICD-10 - 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.032) just observe and try not to sleep on it 11/15/2024 Hypercholesteremia (ICD-10 - E78.00) well controlled 11/15/2024 Restless legs syndro me (ICD-10 - G25.81) Plan Of Treatment Treatment Notes Assessment Notes Chondritis of left external ear just obs erve and try not to sleep on it Hypercholesteremia well controlled Next Appt Details Provider Name:Sebastian gaxiola, 05/18/2025 07:00:00 AM, [address] [place] [address], Suite [facility], [place], [place], [phone], Provider Name:Sebastian gaxiola, 05/26/2025 01:00:00 PM, [address] [place] [address], Suite [facility], [place], [place], [phone], Progress Notes * Katelynn CID LDOB:[birth year] (79 yo F)Acc No.[id number]:11/15/2024 Progress Notes Patient: Katelynn VEE Provider: Ziggy Boland MD :1945 A ge:79 Y S ex:Female Date:11/15/2024 Address:[address] [place] [address] Jojo COPE [id number] Subjective: * Chief Complaints: * 6 month * HPI: S ymptom(s): patient is a 79 yo female here for 6 month follow up visit/ doing well on meds for adhd. work is wanting to replace her. missed her meds on a couple days and found a difference. * ROS: G eneral/Constitutional: Denies C hills. D enies F atigue. D enies F ever. D enies H eadache. E NT: Patient complaining of h as a sore in left ear. D enies?Sore throat. R espiratory: Denies C ough. D enies S hortness of breath at rest. D enies S hortness of breath with exertion. C ardiovascular: Denies C hest pain at rest. D enies C hest pain with exertion. D enies D izziness. D enies P alpitations. D enies S hortness of breath. G astrointestinal: Denies D iarrhea. D enies N ausea. * Medical History: * Surgical History: * Hospitalization/Major Diagno stic Procedure: * Medications: T akingCalcium 1000 + D 1000-800 MG-UNIT Tablet 1 tablet with a meal Orally Once a day Naproxen 500 MG Tablet TAKE ONE TABLET BY MOUTH TWICE A DAY Omeprazole 40 MG Capsule Delayed Release TAKE ONE CAPSULE BY MOUTH EVERY DAY Venlafaxine HCl ER 150 MG Capsule Extended Release 24 Hour TAKE ONE CAPSULE BY MOUTH EVERY DAY WITH VENLAFAXNE ER 75MG. Atorvastatin Calcium 10 MG Tablet TAKE ONE TABLET BY MOUTH EVERY DAY Concerta 27 MG Tablet Extended Release 1 tablet in the morning Orally Once a day Pramipexole Dihydrochloride 0.25 MG Tablet TAKE TWO TABLETS BY MOUTH DAILY AT BEDTIME Taking Calcium 1000 + D 1000-800 MG-UNIT Tablet 1 tablet with a meal Orally Once a day Taking Naproxen 500 MG Tablet TAKE ONE TABLET BY MOUTH TWICE A DAY Taking Omeprazole 40 MG Capsule Delayed Release TAKE ONE CAPSULE BY MOUTH EVERY DAY Taking Venlafaxine HCl ER 150 MG Capsule Extended Release 24 Hour TAKE ONE CAPSULE BY MOUTH EVERY DAY WITH VENLAFAXNE ER 75MG. Taking Atorvastatin Calcium 10 MG Tablet TAKE ONE TABLET BY MOUTH EVERY DAY Taking Concerta 27 MG Tablet Extended Release 1 tablet in the morning Orally Once a day Taking Pramipexole Dihydrochloride 0.25 MG Tablet TAKE TWO TABLETS BY MOUTH DAILY AT BEDTIME Not-Taking/PRNClobetasol Propionate 0.05 % Ointment 1 application to affected area Externally Twice a day Percocet 5-325 MG Tablet 0.5 tablet as needed Orally HS Ventolin HFA 108 (90 Base) MCG/ACT Aerosol Solution 2 puffs as needed Inhalation every 4 hrs Medication List reviewed and reconciled with the patientNot-Taking/PRN Clobetasol Propionate 0.05 % Ointment 1 application to affected area Externally Twice a day Not-Taking/PRN Percocet 5-325 MG Tablet 0.5 tablet as needed Orally HS Not-Taking/PRN Ventolin HFA 108 (90 Base) MCG/ACT Aerosol Solution 2 puffs as needed Inhalation every 4 hrs Medication List reviewed and reconciled with the patient * Allergies: N .K.D.A.yes[Allergies Verified] Objective: * Vitals: H t: 63, Wt: 142, BMI:25.15, BP:132/50, Wt-k.41. weight is up 5 pounds since 05-16-24. * P ast Orders: L ab:Liver Panel (Order Date - 11/04/2024) (Collection Date & Time - 11/04/2024 07:30 AM) Value Reference Range Bilirubin Total 0.4 0.0-1.0 - mg/dL Bilirubin Direct 0.2 0.0-0.5 - mg/dL Aspartate Amino Transferase 33 H 5-31 - U/L Alanine Aminotransferase 19 0-31 - U/L Total Protein 6.6 6.5-8.0 - g/dL Albumin Level 3.8 3.5-5.0 - g/dL Alkaline Phosphatase 52 39-117 - U/L L ab:Lipid Panel with Reflex (Order Date - 11/04/2024) (Collection Date & Time - 11/04/2024 07:30 AM) Value Reference Range Triglycerides 54 <150 - mg/dL Cholesterol 158 <200 - mg/dL LDL Cholesterol Calculated 83 <100 - mg/dL HDL Cholesterol 65 >40 - mg/dL * Examination: G eneral Examination: EARS: l eft ear with a small ulcer on the helix. SKIN: g ood turgor. HEART: r egular rate and rhythm, no murmurs, rubs, gallops.? LUNGS: n o wheezes, rales, rhonchi, good air movement, clear to auscultation bilaterally. Assessment: * Assessment: 1. C hondritis of left external ear - H61.032 (Primary) 2 . H ypercholesteremia - E78.00 3 . R estless legs syndrome - G25.81 Plan: * Treatment: 2. H ypercholesteremia Notes: well controlled * Procedure Codes: * * Sign off status: Completed true * Provider: Ziggy Boland MD Date: 0 11/15/2024 Generated for Po doll/Gurvinder/Adali on: 03/12/2024 06:41 PM EST History and Physical Notes * HPI (History of Present Illness) Category Sub-Category Detail Notes Category Not es Symptom(s) patient is a 79 yo female here for 6 month follow up visit/ doing well on meds for adhd. work is wanting to replace her. missed her meds on a couple days and found a difference. Examination Category Sub-Category Detail Notes Category Not es General Examination EARS: left ear wit h a small ulcer on the helix HEART: regular rate and rhy thm, no murmurs, rubs, gallops LUNGS: no wheezes, rales, r honchi, good air movement, clear to auscultation bilaterally SKIN: good turgor
--- NOTE | ~2025-01-10 | MM_ITS ---
EXAMINATION(S): MM DIAGNOSTIC DIGITAL BREAST TOMOSYNTHESIS, RIGHT CLINICAL INFORMATION: Callback from screening for right breast asymmetry in the upper breast middle depth on the MLO view. COMPARISON: Comparison made to multiple prior, most recent December 29, 2024, and most remote October 29, 2018. TECHNIQUE: Digital breast tomosynthesis is performed in full field ML 90 degrees along with computer-aided detection (CAD). Synthesized 2D images are generated from the tomosynthesis. Spot compression tomosynthesis were obtained. FINDINGS: BREAST COMPOSITION: The breasts are heterogeneously dense, which may obscure small masses. RIGHT BREAST: Previously suggested asymmetry in the upper breast middle depth does not persist on today's images. On today's images, the local parenchyma has similar appearance to multiple prior studies as far back as 2018, and likely represented overlapping fibroglandular breast tissue. MM/MM tomosynthesis added views R IMPRESSION: RIGHT BREAST: Negative, no mammographic evidence of malignancy. Normal interval follow-up is recommended in 12 months. ASSESSMENT: BI-RADS: Category 1: Negative RECOMMENDATION: 1 year F/U Results were provided to the patient at time of visit by the technologist. This patient's information was entered into a reminder system with a target due date for their next mammogram. Electronically signed by: Ashok Whiting MD 01/10/2025 03:19 PM LOI
--- OUTSIDE RECORDS SUMMARY | 2025-01-10 18:41 | XMS_ITS | Patient Health Record ---
Author Organization [facility] Address [address] [place] [phone] Care Team Providers Care Parking Lot Laborer Name Role Phone Sebastian Boland MD Primary Care Provider Bg Garcia Unavailable [phone] Reason For Referral No Information Medications Medication SIG (Take, Route, Frequency, Duration) Notes Start Date End Date Status Pramipexole Dihydrochloride Active amLODIPine Besylate Active Calcium Active Atorvastatin Calcium Active Naproxen BID Active Venlafaxine HCl Acti ve Omeprazole 40 MG Capsule Delayed Release 1 capsule Orally Once a day Active Social History Tobacco Use: Social History Observation Description Date Details (start date - stop date) Never Smoker NA - NA Social History Drugs/Alcohol: Social Info Question Answer Notes Alcohol Screen Did you have a drink containing alcohol in the past year? Yes How often did you have a drink containing alcohol in the past year? Never (0 point) How many drinks did you have on a typical day when you were drinking in the past year? 1 or 2 drinks (0 point) How often did you have 6 or more drinks on one occasion in the past year? 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 Nonsmoker; one drink very oc casionally. Problems Problem Type SNOMED Code ICD Code Onset Dates Problem Status W/U Status Risk Notes Problem Screening for malignant neoplasm of colon (389384034) Encounter for screening for malignant neoplasm of colon (Z12.11) Active confirmed Problem Gastroesophageal reflux disease (399537618) Gastroesophageal reflux disease, esophagitis presence not specified (K21.9) Active confirmed Problem Hiatal hernia (10598950) Hiatal hernia (K44.9) Active confirmed Problem Reflux esophagitis (703527186) Reflux esophagitis (K21.0) Active confirmed Plan Of Treatment Future Test Test Name Order Date UPPER GI ENDOSCOPY 02/17/2017 COLONOSCOPY 02/17/2017 Insurance Providers Payer Name Payer Address Payer Phone Subscriber Number Group Number Insured Name Patient Relationship to Insured Coverage Start Date Coverage End Date [employer] [address] JUVENAL MELCHOR [phone] [id number] YON CID Self - patient is the insured Medical (General) History Medical History History ICD Code Hypertension Denies [place],DM,CVA,Lung disease,renal dise ase Negative screening colonoscopy at [facility] in 2004 and with me in [...]
--- OUTSIDE RECORDS SUMMARY | 2025-01-10 18:42 | XMS_ITS | Patient Health Record ---
Author Organization Sebastian Boland MD Address [address] [place], [place] [id number] Care Team Providers Care Dynamicist Name Role Phone Sebastian Boland Primary Care Provider Allergies No Known Allergies Results Component Value Reference Range Notes Complete Blood Count Auto Di ff Reviewed date:04/21/2024 04:53:15 PM Interpretation: Performing Lab:[facility], [address] [place] [phone] Notes/Report: White Blood Count 5.5 4.8-10.8 X10*3/uL [...] NRBC Abs Auto 0.000 0.0-0.012 X10*3/uL Comprehensive [place]. Panel Fa st Reviewed date:04/21/2024 12:55:34 PM Interpretation: Performing Lab:[facility], [address] [place] [phone] Notes/Report: Sodium 142 135-145 mmol/L Potassium 4.0 [...] Panel Reviewed date:04/21/2024 12:20:19 PM Interpretation: Performing Lab:[facility], [address] [place] [phone] Notes/Report: Triglycerides 45 <150 mg/dL Desirable Triglyceride: [...] t Reviewed date:04/21/2024 04:53:44 PM Interpretation: Performing Lab:[facility], [address] [place] [phone] Notes/Report: Urine, Clean Catch Color Urine Yellow Appearance Urine Clear PH 5.5 5.0-9.0 Glucose Urine UA Negative Negative mg/dL Urine Blood Negative Negative Specific [place] - Urine 1.020 1.005-1.025 Urine Protein Negative Neg-Trace mg/dL Urine Ketones Negative Negative mg/dL Nitrite Urine Negative Negative Leukocyte Esterase Urine Moderate (2+) Negative RBC Urine 0-2 0-2 /HPF WBC Urine 21-50 0-5 /HPF Squamous Epithelial Cell Urine 0-2 0-2 /HPF Bacteria Urine None Seen None Seen Hyaline Casts Urine 0-2 0-2 /LPF Liver Panel Reviewed date:11/06/2024 02:45:10 PM Interpretation: Performing Lab:[facility], [address] [place] [phone] Notes/Report: Bilirubin Total 0.4 0.0-1.0 mg/dL Bilirubin Direct 0.2 0.0-0.5 mg/dL Aspartate Amino Transferase 33 5-31 U/L Alanine Aminotransferase 19 0-31 U/L Total Protein 6.6 6.5-8.0 g/dL Albumin Level 3.8 3.5-5.0 g/dL Alkaline Phosphatase 52 39-117 U/L Lipid Panel with Reflex Reviewed date:11/06/2024 02:46:04 PM Interpretation: Performing Lab:[address] [phone] Notes/Report: Triglycerides 54 <150 mg/dL Desirable Triglyceride: [...] Culture Reviewed date:04/22/2024 12:13:05 PM Interpretation: Performing Lab:[address] [phone] Notes/Report: Urine Culture Report Result Urine Culture < 10,000 cfu/ml Hold Leon Reviewed date:11/04/2024 12:50:25 PM Interpretation: Performing Lab:[address] [phone] Notes/Report: Taylor Quintero See Note Specimen held untested for 24 hours; Call to request Chemistry testing. MM tomosynthesis screening B I Reviewed date:12/29/2024 12:38:44 PM Interpretation: Performing Lab: Notes/Report: [facility] [address] [place] [id number] Mammography Report Signed Patient: Katelynn Hanna MR#: [id number] : 1945 Acct:[id number] Age/Sex: 79 / F ADM Date: 12/29/24 Loc: HO.MAMMO Attending Dr: Sebastian Boland MD Ordering Physician: Sebastian Boland MD Results: 0In complete- Need Additional Imaging Evaluation Date of Service: 12/29/24 Follow Up: Additional Imagi ng Procedure(s): MM tomosynthesis screening BI Accession Number(s): [id number] cc: Sebastian Boland MD Reason For Exam: SCREENING EXAMINATION: MM SCREENING DIGITAL BREAST TOMOSYNTHESIS, BILATERAL CLINICAL INFORMATION: Screening. Asymptomatic. COMPARISON: Mammography: Comparison is made with available priors TECHNIQUE: Digital breast mammography with tomosynthesis is performed in both the craniocaudal and mediolateral oblique views along with computer-aided detection (CAD). FINDINGS: The breasts are heterogeneously dense, which may obscure small masses. Right: Asymmetry superior breast middle depth on MLO view. No suspicious calcifications or other abnormal findings. Left: There are no significant masses, abnormal calcifications, or other abnormalities. MM/MM tomosynthesis screening BI IMPRESSION: Additional imaging is recommended ASSESSMENT: BI-RADS Category 0: Incomplete - Need additional Imaging Evaluation RECOMMENDATION: 1. Additional views of the right breast. 2. Targeted ultrasound if warranted after review of the additional views. 3. Radiology department staff will contact the patient for additional imaging. Additional Imaging required Electronically signed by: Kiara Rashid DO 12/29/2024 08:31 AM EST Dictated By: Kiara Rashid DO Signed By: <Electronically signed by Kiara Rashid DO in OV> 12/29/24 0831 DD/ 08 TD/TT: 12/29/24 0823 Senior Consulting Manager: [facility] [address] [place] [address] [place] [address] Mammography Report Signed Patient: Sachi Hanna MR#: [id number] : 1945 Acct:[id number] Age/Sex: 79 / F ADM Date: 12/29/24 Loc: MAMMO Attending Dr: Sebastian Boland MD Ordering Physician: Sebastian Boland MD Results: 0In complete- Need Additional Imaging Evaluation Date of Service: 12/29/24 Follow Up: Additional Imagi ng Procedure(s): MM tomosynthesis screening BI Accession Number(s): [id number] cc: Sebastian Boland MD Reason For Exam: SCREENING EXAMINATION: MM SCREENING DIGITAL BREAST TOMOSYNTHESIS, BILATERAL CLINICAL INFORMATION: Screening. Asymptomatic. COMPARISON: Mammography: Compari son is made with available priors TECHNIQUE: Digital breast mammography with tomosynthesis is performed in both the craniocaudal and mediolateral oblique views along with computer-aided detection (CAD). FINDINGS: The breasts are heterogeneously dense, which may obscure small masses. Right: Asymmetry superior breast middle depth on MLO view. No suspicious calcifications or other abnormal findings. Left: There are no significant masses, abnormal calcifications, or other abnormalities. MM/MM tomosynthesis screening BI IMPRESSION: Additional imaging i s recommended ASSESSMENT: BI-RADS Category 0: Incomplete - Need additional Imaging Evaluation RECOMMENDATION: 1. Additional views of the right breast. 2. Targeted ultrasou nd if warranted after review of the additional views. 3. Radiology departm ent staff will contact the patient for additional imaging. Additional Imaging required Electronically ami d by: Kiara Rashid DO 12/29/2024 08:31 AM EST Dictated By: Kiara Rashid DO Signed By: <Electronically signed by Kiara Rashid DO in OV> 12/29/24 0831 DD/ 0800 TD/TT: 12/29/24 0823 Senior Consulting Manager: MM tomosynthesis added views R Reviewed date:01/10/2025 03:46:36 PM Interpretation: Performing Lab: Notes/Report: [facility] [address] [place] [address] Mammography Report Signed Patient: Katelynn Hanna MR#: [id number] : 1945 Acct:[id number] Age/Sex: 79 / F ADM Date: 01/10/25 Loc: HO.MAMMO Attending Dr: Sebastian Boland MD Ordering Physician: Sebastian Boland MD Results: 1Ne gative Date of Service: 01/10/25 Follow Up: 1 Year From Orig inal Mammogram Procedure(s): MM tomosynthesis added views R Accession Number(s): [id number] cc: Sebastian Boland MD Reason For Exam: RT BR AV US FOR ASYMMETRY SUPERIOR BREAST EXAMINATION(S): MM DIAGNOSTIC DIGITAL BREAST TOMOSYNTHESIS, RIGHT CLINICAL INFORMATION: Callback from screening for right breast asymmetry in the upper breast middle depth on the MLO view. COMPARISON: Comparison made to multiple prior, most recent December 29, 2024, and most remote October 29, 2018. TECHNIQUE: Digital breast tomosynthesis is performed in full field ML 90 degrees along with computer-aided detection (CAD). Synthesized 2D images are generated from the tomosynthesis. Spot compression tomosynthesis were obtained. FINDINGS: BREAST COMPOSITION: The breasts are heterogeneously dense, which may obscure small masses. RIGHT BREAST: Previously suggested asymmetry in the upper breast middle depth does not persist on today's images. On today's images, the local parenchyma has similar appearance to multiple prior studies as far back as 2018, and likely represented overlapping fibroglandular breast tissue. MM/MM tomosynthesis added views R IMPRESSION: RIGHT BREAST: Negative, no mammographic evidence of malignancy. Normal interval follow-up is recommended in 12 months. ASSESSMENT: BI-RADS: Category 1: Negative RECOMMENDATION: 1 year F/U Results were provided to the patient at time of visit by the technologist. This patient's information was entered into a reminder system with a target due date for their next mammogram. Electronically signed by: Ashok Whiting MD 01/10/2025 03:19 PM [facility] Dictated By: Ashok Whiting MD Signed By: <Electronically signed by Ashok Whiting MD in OV> 01/10/25 1519 DD/ 1506 TD/TT: 01/10/25 1511 Senior Consulting Manager: [facility] [address] [place] [address] [place] [address] Mammography Report Signed Patient: Sachi Hanna MR#: [id number] : 1945 Acct:[id number] Age/Sex: 79 / F ADM Date: 01/10/25 Loc: HO.MAMMO Attending Dr: Sebastian Boland MD Ordering Physician: Sebastian Boland MD Results: 1Ne gative Date of Service: 01/10/25 Follow Up: 1 Year From Orig inal Mammogram Procedure(s): MM tomosynthesis added views R Accession Number(s): [id number] cc: Sebastian Boland MD Reason For Exam: RT BR AV US FOR ASYMMETRY SUPERIOR BREAST EXAMINATION(S): MM DIAGNOSTIC DIGITA L BREAST TOMOSYNTHESIS, RIGHT CLINICAL INFORMATION: Callback from screen ing for right breast asymmetry in the upper breast middle depth on the MLO view. COMPARISON: Comparis on made to multiple prior, most recent December 29, 2024, and most remot e October 29, 2018. TECHNIQUE: Digital breast tomosynthesis is performed in full field ML 90 degrees along with computer-aided detection (CAD). Synthesized 2D images are generated from the tomosynthesis. Spot compression tomosynthesis were obtained. FINDINGS: BREAST COMPOSITION: The breasts are heterogeneously dense, which may obscure small masses. RIGHT BREAST: Previously suggested asymmetry in the upper breast middle depth does no t persist on today's images. On today's images, the local parenchyma has similar appearance to multiple prior studies as far back as 2018, an d likely represented overlapping fibroglandular breast tissue. MM/MM tomosynthesis added views R IMPRESSION: RIGHT BREAST: Negati ve, no mammographic evidence of malignancy. Normal interval follow-up i s recommended in 12 months. ASSESSMENT: BI-RADS: Category 1: Negative RECOMMENDATION: 1 year F/U Results were provide d to the patient at time of visit by the technologist. This patient's information was entered into a reminder system with a target due date for their next mammogram. Electronically ami d by: Ashok Whiting MD 01/10/2025 03:19 PM [facility] Dictated By: Ashok Whiting MD Signed By: <Electronically signed by Ashok Whiting MD in OV> 01/10/25 1519 DD/ 1506 TD/TT: 01/10/25 1511 Senior Consulting Manager: Reason For Referral No Information Medications Medication [...] Problem Status W/U Status Risk Notes Problem 85134962 Age-related osteoporosis without current pathological fracture (M81.0) Active confirmed Problem 926454978 Restless legs syndrome (G25.81) Active confirmed Problem 44124584 Essential hypertension (I10) Active confirmed Problem 34118787 Heart murmur (R01.1) Active confirmed Problem 643219351 Acute non intractable tension-type headache (G44.209) Active confirmed Problem 71660845 Dysthymia (F34.1) Active confirmed Problem 36842179 Attention defici t hyperactivity disorder (ADHD), combined type (F90.2) Active confirmed Problem 241158732 Blood loss anemi a (D50.0) Active confirmed Problem 38613453 Hypersomnia (G47.10) Active confirmed Problem 91653065 Sciatica of righ t side (M54.31) Active confirmed Problem 280961507 Loss of balance (R26.89) Active confirmed Problem 91579533809186731 Bilateral carp al tunnel syndrome (G56.03) Active confirmed Problem 94612474 Hypercholesterem ia (E78.00) Active confirmed Problem 28684538 Hip arthritis (M16.10) Active confirmed Problem 344647430 Gastroesophageal reflux disease with esophagitis without hemorrhage (K21.00) Active confirmed Problem Abdominal aortic aneurysm (disorder) (806822626) AAA (abdominal aortic aneurysm) without rupture (I71.40) Active confirmed Vital Signs Blood pressure diastolic 50 mm Hg 11/15/2024 get ght is up 5 pounds since 05-16-24 Height 63 in 11/15/2024 weight is up 5 pounds since 05-16-24 Blood pressure systolic 132 mm Hg 11/15/2024 weig ht is up 5 pounds since 05-16-24 Weight 142 lbs 11/15/2024 weight is up 5 pounds since 05-16-24 BMI 25.15 kg/m2 11/15/2024 weight is up 5 pounds since 05-16-24 Encounters Encounter Location Date Provider Diagnosis Sebastian Boalnd MD [address] [place] [id number] 04/21/2024 Sebastian Boland Blood tests for rout ine general physical examination Z00.00 and Hypercholesteremia E78.00 Sebastian Boland MD [address] [place] [id number] 11/04/2024 Sebastian Boland Hypercholesteremia E 78.00 ; Encounter for administration of vaccine Z23 and AAA (abdominal aortic aneurysm) without rupture I71.40 Sebastian Boland MD [address] [place] [id number] 05/16/2024 Sebastian Boland Annual physical exam Z00.00 ; Essential hypertension I10 ; Attention deficit hyperactivity disorder (ADHD), combined type F90.2 ; Hypercholesteremia E78.00 ; Gastroesophageal reflux disease with esophagitis without hemorrhage K21.00 and Depression screening Z13.31 Sebastian Boland MD [address] [place] [id number] 11/15/2024 Sebastian Boland 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 ; Hypercholesteremia E78.00 and Restless legs syndrome G25.81 Sebastian Boland MD [address] [place] [id number] 01/22/2024 Sebastian Boland Attention deficit hyperactivity disorder (ADHD), combined type F90.2 Sebastian Boland MD [address] [place] [id number] 02/22/2024 Sebastian Boland Attention deficit hyperactivity disorder (ADHD), combined type F90.2 Sebastian Boland MD [address] [place] [id number] 02/25/2024 Sebastian Boland MD [address] [place] [id number] 02/29/2024 Sebastian Boland Attention deficit hyperactivity disorder (ADHD), combined type F90.2 Sebastian Boland MD [address] [place] [id number] 03/31/2024 Sebastian Boland Attention deficit hyperactivity disorder (ADHD), combined type F90.2 Sebastian Boland MD [address] [place] [id number] 05/05/2024 Sebastian Boland Attention deficit hyperactivity disorder (ADHD), combined type F90.2 Sebastian Boland MD [address] [place] [id number] 06/10/2024 Sebastianinder Boland Attention deficit hyperactivity disorder (ADHD), combined type F90.2 Sebastian Boland MD [address] [place] [id number] 07/21/2024 Sebastian Boland Attention deficit hyperactivity disorder (ADHD), combined type F90.2 Sebastian Boland MD [address] [place] [id number] 08/21/2024 Sebastian Boland Attention deficit hyperactivity disorder (ADHD), combined type F90.2 Sebastian Boland MD [address] [id number] 09/23/2024 Sebastian Boland Attention deficit hyperactivity disorder (ADHD), combined type F90.2 Sebastian Boland MD [address] [id number] 10/25/2024 Sebastian Boland Attention deficit hyperactivity disorder [...] Details Provider Name:Sebastian gaxiola, 05/18/2025 07:00:00 AM, [address] [place] [address], [address], [place], [place], [phone], Provider Name:Sebastian gaxiola, 05/26/2025 01:00:00 PM, [address] [place] [address], [address], [place], [place], [phone], Insurance Providers Payer Name Payer Address Payer Phone Subscriber Number Group Number Insured Name Patient Relationship to Insured Coverage Start Date Coverage End Date [facility] [place] [address] JUVENAL Remy [phone] [id number] Katelynn Hanna Self - patient is the [...]
== END 2025-01-10 14:56 | disposition home or self-care (01) ==
LOC: HO.MAMMO 14:55
PROVIDERS: PCP Internal Medicine; Visit Provider Internal Medicine
DX: N64.89 Other specified disorders of breast (principal)
CPT/HCPCS: 77061; 77065

== ENCOUNTER → 2025-01-10 15:00 | Outpatient (BNV) | payer MEDICARE, SELFPAY | PROVIDERS: PCP Internal Medicine; Visit Provider Radiology Body Imaging | DX: R92.8 Other abnormal and inconclusive findings on diagnostic imaging of breast (principal) | CPT/HCPCS: 77065; G0279 ==